=== PATIENT | male | born 1940 | race Caucasian/White ===

== ENCOUNTER 2016-10-13 09:53 | Outpatient (CLI) | payer MEDICARE, BC ==
[2016-10-13 10:21] LABS: BASOPHILS # (AUTO) 0.1 10^3/uL (0.0-0.1); BASOPHILS % (AUTO) 1.1 %; EOSINOPHILS # (AUTO) 0.3 10^3/uL (0.0-0.7); EOSINOPHILS % (AUTO) 6.2 %; HGB - HEMOGLOBIN 13.9 g/dL (14.0-18.0); LYMPHOCYTES # (AUTO) 1.8 10^3/uL (1.5-3.5); LYMPHOCYTES % (AUTO) 37.8 %; MEAN CORPUSCULAR HEMOGLOBIN 29.6 pg (27.0-31.0); MEAN CORPUSCULAR HGB CONC 34.6 g/dL (32.0-36.0); MEAN CORPUSCULAR VOLUME 85.3 fL (80.0-94.0); MONOCYTES # (AUTO) 0.5 10^3/uL (0.0-1.0); MONOCYTES % (AUTO) 10.8 %; NEUTROPHILS # (AUTO) 2.1 10^3/uL (1.5-6.6); NEUTROPHILS % (AUTO) 44.1 %; NUCLEATED RED BLOOD CELLS AUTO 0.1 /100WBC; RED BLOOD COUNT 4.69 10^6/uL (4.70-6.10); UNCORRECTED WHITE BLOOD COUNT 4.7 x10^3/uL; WHITE BLOOD COUNT 4.7 x10^3/uL (4.8-10.8)
[2016-10-13 10:33] LABS: ALBUMIN/GLOBULIN RATIO 1.4 (1.0-2.2); BILIRUBIN,TOTAL 0.7 mg/dL (0.2-1.0); CREATININE 0.8 mg/dL (0.6-1.2); POTASSIUM 3.5 mmol/L (3.5-5.0); TOTAL PROTEIN 6.8 g/dL (6.7-8.2)
== END 2016-10-13 09:54 | disposition home or self-care (01) ==
LOC: LAB 09:53
PROVIDERS: ATTEND Family Medicine
DX: E11.9 Type 2 diabetes mellitus without complications (principal)
CPT/HCPCS: 36415; 80053; 85025

== ENCOUNTER 2017-03-16 10:38 | Outpatient (CLI) | payer MEDICARE, BC ==
--- NOTE | 2017-03-16 17:39 | XRAY Report ---
THREE VIEW LEFT HAND: 03/16/2017 CLINICAL INDICATION: Osteoarthritis. AP, lateral, oblique views of the left hand demonstrate osteoarthritis of the interphalangeal joints. A prosthesis is noted in the first carpometacarpal joint, and osteoarthritic changes are seen in th e mid carpal row. There is no evidence of acute fracture or dislocation. IMPRESSION: OSTEOARTHRITIS. PREVIOUS SURGERY AT THE FIRST CARPOMETACARPAL JOINT. JOB #: [id number] EXT JOB #:[id number]
== END 2017-03-16 10:39 | disposition home or self-care (01) ==
LOC: DI 10:38
PROVIDERS: ATTEND Internal Medicine
DX: M19.042 Primary osteoarthritis, left hand (principal)

== ENCOUNTER 2017-04-21 10:31 | Outpatient (CLI) | payer MEDICARE, BC ==
[2017-04-21 11:32] LABS: HB2 TOTAL 17.5 g/dL; HEMOGLOBIN A1C 0.68 g/dL; HEMOGLOBIN A1C % 5.7 % (4.6-6.2)
[2017-04-21 11:33] LABS: BUN - BLOOD UREA NITROGEN 16 mg/dL (6-20); CALCIUM 9.6 mg/dL (8.5-10.3); CARBON DIOXIDE - CO2 27 mmol/L (21-32); CHLORIDE 99 mmol/L (101-111); CREATININE 0.8 mg/dL (0.6-1.2); CRP - C-REACTIVE PROTEIN < 1.0 mg/dL (0-1.0); GFR - MDRD 94 (>89); GLUCOSE 106 mg/dL (70-100); SODIUM 138 mmol/L (135-145)
[2017-04-21 11:45] LABS: RHEUMATOID FACTOR NEGATIVE (Negative)
== END 2017-04-21 10:32 | disposition home or self-care (01) ==
LOC: LAB 10:31
PROVIDERS: ATTEND Internal Medicine
DX: M25.50 Pain in unspecified joint (principal); E11.9 Type 2 diabetes mellitus without complications; Z79.899 Other long term (current) drug therapy
CPT/HCPCS: 36415; 80048; 82607; 83036; 85651; 86140; 86200; 86430

== ENCOUNTER 2017-06-18 10:09 | Emergency (ER) | payer MEDICARE, BC ==
[2017-06-18 10:27] VITALS: BP 119/76
--- NOTE | 2017-06-18 11:15 | ED Physician Documentation ---
PD HPI UPPER EXT INJURY - Stated complaint Stated Complaint: L RING FINGER INJ - Chief complaint Chief Complaint: Ext Problem - History obtained from History obtained from: Patient, Family - History of Present Illness Location: Left, Finger (ring) Type of injury: Blunt / blow Where injury occurred: Home Timing - onset: Last night Timing - duration: Hours Timing - details: Abrupt onset, Still present Improved by: Rest, Immobilization Worsened by: Moving, Palpating Associated symptoms: Swelling. No: Weakness, Numbness Contributing factors: No: Anticoagulated Similar symptoms before: Has not had sx before Recently seen: Not recently seen - Additonal information Additional information: 76-year-old male was going up the steps last night slipped and fell forward and jammed his left ring finger turning off a portion of his nail and injuring his finger. Overnight he has had a lot of swelling in the finger and has pain especially over the distal interphalangeal joint. He does not have a mallet finger now. Review of Systems Constitutional: denies: Fever Nose: denies: Congestion Respiratory: denies: Cough GI: denies: Vomiting Skin: denies: Rash Musculoskeletal: reports: Extremity pain, Joint pain, Extremity swelling, Joint swelling. denies: Neck pain, Back pain Neurologic: denies: Generalized weakness, Focal weakness, Numbness PD PAST MEDICAL HISTORY - Past Medical History Past Medical History: Yes Cardiovascular: Hypertension, High cholesterol Respiratory: Asthma Endocrine/Autoimmune: Type 2 diabetes - Past Surgical History Past Surgical History: Yes Ortho: Spine surgery - Present Medications Home Medications: Ambulatory Orders Medication Instructions Recorded Confirmed Albuterol Sulf [Ventolin Hfa 06/18/17 Inhaler] Aspirin 06/18/17 Budesonide 06/18/17 Formoterol Fumarate [Perforomist] 06/18/17 Gabapentin 06/18/17 Metformin HCl 06/18/17 Montelukast Sodium 06/18/17 Potassium Chloride [Micro-K] 06/18/17 Pravastatin Sodium 06/18/17 Tiotropium [place] [Spiriva 06/18/17 Respimat] Triamterene/Hydrochlorothiazid 06/18/17 [Triamterene-Hctz 75-50 mg Tab] - Allergies Allergies/Adverse Reactions: Allergies Allergy/AdvReac Type Severity Reaction Status Date / Time No Known Drug Allergies Allergy Verified 06/18/17 10:26 - Social History Does the pt smoke?: No Smoking Status: Never smoker PD ED PE NORMAL - Vitals Vital signs reviewed: Yes (normal ) - General General: Alert and oriented X 3, No acute distress, Well developed/nourished - HEENT HEENT: Atraumatic - Respiratory Respiratory: No respiratory distress - Derm Derm: Normal color, Warm and dry, No rash - Extremities Extremities: No deformity, Other - Neuro Neuro: No motor deficit, No sensory deficit Eye Opening: Spontaneous Motor: Obeys Commands Verbal: Oriented GCS Score: 15 - Psych Psych: Normal mood, Normal affect Results - Vitals Vitals: Vital Signs - 24 hr 06/18/17 10:24 Temperature 36.6 C Heart Rate 76 Respiratory 16 Rate Blood Pressure 119/76 O2 Saturation 98 Oxygen O2 Source Room air - Rads (name of study) finger Radiology: Prelim report reviewed (Impression: 1. No definite acute abnormality of the left fourth finger. Degenerative, chronic and postopertive findings, as above), EMP read indepedently, See rad report PD MEDICAL DECISION MAKING - ED course Complexity details: reviewed results, re-evaluated patient, considered differential, d/w patient, d/w family ED course: 76-year-old male with a contusion of the left ring finger has some swelling and dorsal pain and he is placed into a splint. There is no evidence of foreign body. Departure - Departure Disposition: 01 Home, Self Care Clinical Impression: Sprain of finger of left hand Qualifiers: Encounter type: initial encounter Finger: ring finger Sprain of finger site: interphalangeal joint Qualified Code(s): S63.635A - Sprain of interphalangeal joint of left ring finger, initial encounter Condition: Stable Instructions: ED Sprain Finger Follow-Up: Smiley Parrish MD [Primary Care Provider] -
--- NOTE | 2017-06-18 11:24 | XRAY Report ---
EXAM: LEFT 4 DIGIT RADIOGRAPHY EXAM DATE: 06/18/2017 10:39 AM. CLINICAL HISTORY: Injury. Pain in distal tuft COMPARISON: None. TECHNIQUE: 3 views. FINDINGS: Bones/joints: No definite fractures or acute bone lesions. Limited demonstration of a rounded presume d prosthetic/surgical structure at the first carpometacarpal joint with associated presumed postopera tive and chronic changes. Degenerative joint disease of varying degrees involving all of the visualized IP joints. Sclerotic no dule within the base of the fifth proximal phalanx presumably represents a benign bone island. Soft Tissues: Normal. No soft tissue swelling. IMPRESSION: 1. No definite acute abnormality of the left fourth finger. 2. Degenerative, chronic and postoperative findings, as above. [facility] Referring Provider Line: [phone] SITE ID: [id number]
--- NOTE | 2017-06-18 11:24 | XRAY Preliminary Report ---
Exam: XR FINGER(S) LT IMPRESSION: 1. No definite acute abnormality of the left fourth finger. 2. Degenerative, chronic and postoperative findings, as above. [facility] SITE ID: [id number]
== END 2017-06-18 11:51 | disposition home or self-care (01) ==
LOC: ED 10:09
DX: S63.635A Sprain of interphalangeal joint of left ring finger, initial encounter (principal); W01.0XXA Fall on same level from slipping, tripping and stumbling without subsequent striking against object, initial encounter; W23.1XXA Caught, crushed, jammed, or pinched between stationary objects, initial encounter; Y92.009 Unspecified place in unspecified non-institutional (private) residence as the place of occurrence of the external cause; I10 Essential (primary) hypertension; E78.00 Pure hypercholesterolemia, unspecified; E11.9 Type 2 diabetes mellitus without complications; Z79.84 Long term (current) use of oral hypoglycemic drugs; Z79.82 Long term (current) use of aspirin
CPT/HCPCS: 73140; 99282

== ENCOUNTER 2017-08-18 08:44 | Outpatient (CLI) | payer MEDICARE, BC ==
[2017-08-18 09:15] LABS: BASOPHILS # (AUTO) 0.1 10^3/uL (0.0-0.1); BASOPHILS % (AUTO) 1.2 %; EOSINOPHILS # (AUTO) 0.2 10^3/uL (0.0-0.7); EOSINOPHILS % (AUTO) 4.2 %; HGB - HEMOGLOBIN 14.1 g/dL (14.0-18.0); LYMPHOCYTES % (AUTO) 37.5 %; MEAN CORPUSCULAR HEMOGLOBIN 30.8 pg (27.0-31.0); MEAN CORPUSCULAR HGB CONC 34.2 g/dL (32.0-36.0); MEAN CORPUSCULAR VOLUME 89.9 fL (80.0-94.0); MONOCYTES # (AUTO) 0.6 10^3/uL (0.0-1.0); MONOCYTES % (AUTO) 11.9 %; NEUTROPHILS # (AUTO) 2.4 10^3/uL (1.5-6.6); NEUTROPHILS % (AUTO) 45.2 %; PLT - PLATELET COUNT 231 10^3/uL (130-450); RED BLOOD COUNT 4.58 10^6/uL (4.70-6.10); RED CELL DISTRIBUTION WIDTH 13.7 % (12.0-15.0); WHITE BLOOD COUNT 5.4 x10^3/uL (4.8-10.8)
[2017-08-18 09:28] LABS: CREATININE 0.8 mg/dL (0.6-1.2)
--- NOTE | 2017-08-18 14:34 | Nuclear Medicine Report ---
EXAM: TRIPLE-PHASE BONE SCAN WITH WHOLE BODY BONE SCAN EXAM DATE: 08/18/2017 01:59 PM. CLINICAL HISTORY: SPINAL LESION. COMPARISON: Lumbar spine MRI dated 08/09/2017. Left shoulder radiographs dated 08/09/2017 (report not available) TECHNIQUE: Patient was injected with 31.7 mCi of technetium 99m MDP intravenously with flow phase jakob ma camera imaging anteriorly over the lumbar spine, 5 seconds per frame for 1 minute. Subsequently, b lood pool images of the lumbar spine were obtained. The patient returned 3 hours later for multiple s pot images of the lumbar spine. Additional whole-body anterior and posterior images are obtained. FINDINGS: Flow Phase: No abnormal increased vascular flow. Blood Pool Phase: Images show no focal increased or decreased uptake. Delayed Phase: There is mild to moderate linear increased uptake at approximately T12-L1, L1-L2, and L2-L3. There is bilateral facet region uptake at approximately L3-L4 and L5-S1. Whole-body images show intensely increased uptake in the region of the left sternoclavicular joint. T here are additional focal areas of increased uptake scattered in the thoracic spine. There is a focus of increased uptake on the left side cervical spine. There is a left knee prosthesis. IMPRESSION: 1. There are several areas of increased uptake in the spine. In the absence of malignancy history, th goyo are most likely degenerative. 2. There is intensely increased uptake in the region of the left sternoclavicular joint. In the absen ce of malignancy history, this is most likely degenerative. [facility] Referring Provider Line: [phone] SITE ID: [id number]
== END 2017-08-18 08:45 | disposition home or self-care (01) ==
LOC: DI 08:44
PROVIDERS: ATTEND Internal Medicine
DX: M54.5 Low back pain (principal); M51.36 Other intervertebral disc degeneration, lumbar region; M54.2 Cervicalgia; M54.12 Radiculopathy, cervical region; M54.16 Radiculopathy, lumbar region; G95.20 Unspecified cord compression
CPT/HCPCS: 36415; 78306; 80048; 84075; 85025; A9503

== ENCOUNTER 2017-12-06 15:22 | Emergency (ER) | payer MEDICARE, BC ==
[2017-12-06 15:55] LABS: BASOPHILS % (AUTO) 0.3 %; EOSINOPHILS # (AUTO) 0.1 10^3/uL (0.0-0.7); HGB - HEMOGLOBIN 14.9 g/dL (14.0-18.0); LYMPHOCYTES # (AUTO) 0.4 10^3/uL (1.5-3.5); LYMPHOCYTES % (AUTO) 6.3 %; MEAN CORPUSCULAR HEMOGLOBIN 31.4 pg (27.0-31.0); MEAN CORPUSCULAR VOLUME 89.7 fL (80.0-94.0); MEAN PLATELET VOLUME 6.8 fL (7.4-11.4); MONOCYTES # (AUTO) 0.5 10^3/uL (0.0-1.0); MONOCYTES % (AUTO) 9.1 %; NEUTROPHILS # (AUTO) 4.9 10^3/uL (1.5-6.6); NEUTROPHILS % (AUTO) 83.3 %; PLT - PLATELET COUNT 220 10^3/uL (130-450); RED BLOOD COUNT 4.76 10^6/uL (4.70-6.10); WHITE BLOOD COUNT 5.9 x10^3/uL (4.8-10.8)
[2017-12-06 16:05] LABS: ALBUMIN 4.1 g/dL (3.2-5.5); ALBUMIN/GLOBULIN RATIO 1.3 (1.0-2.2); CREATININE 0.9 mg/dL (0.6-1.2); TOTAL PROTEIN 7.3 g/dL (6.7-8.2)
--- NOTE | 2017-12-06 16:46 | ED Physician Documentation ---
PD HPI FOCAL NEURO - Stated complaint Stated Complaint: TREMBLE/DIABETIC - Chief complaint Chief Complaint: General - History obtained from History obtained from: Patient - History of Present Illness Timing - onset: Today Timing - duration: Minutes Timing - details: Abrupt onset (he had onset of malaise, some nausea and then had rigorous shaking/ feeling of chills.) Weakness: Other (generalized) Contributing factors: negative: Anticoagulated, Vascular dz Baseline status: positive: A&OX3, ambulatory, indep Similar symptoms before: Diagnosis (sepsis from surgical wound (knee replacement ) infection couple years ago.) Recently seen: Surgery (cervical fusion 8 weeks ago and has been healing okay.) Review of Systems Constitutional: reports: Chills. denies: Fever Ears: denies: Drainage/discharge Nose: denies: Rhinorrhea / runny nose, Congestion Throat: denies: Sore throat, Swollen tonsils Cardiac: denies: Chest pain / pressure, Palpitations Respiratory: denies: Dyspnea, Cough GI: reports: Nausea. denies: Abdominal Pain, Vomiting : denies: Dysuria, Frequency PD PAST MEDICAL HISTORY - Past Medical History Cardiovascular: Hypertension, High cholesterol Respiratory: Asthma Endocrine/Autoimmune: Type 2 diabetes Musculoskeletal: None Derm: None - Past Surgical History Past Surgical History: Yes Ortho: Spine surgery - Present Medications Home Medications: Ambulatory Orders Medication Instructions Recorded Confirmed Albuterol Sulf [Ventolin Hfa 06/18/17 Inhaler] Aspirin 06/18/17 Budesonide 06/18/17 Formoterol Fumarate [Perforomist] 06/18/17 Gabapentin 06/18/17 Metformin HCl 06/18/17 Montelukast Sodium 06/18/17 Potassium Chloride [Micro-K] 06/18/17 Pravastatin Sodium 06/18/17 Tiotropium [place] [Spiriva 06/18/17 Respimat] Triamterene/Hydrochlorothiazid 06/18/17 [Triamterene-Hctz 75-50 mg Tab] - Allergies Allergies/Adverse Reactions: Allergies Allergy/AdvReac Type Severity Reaction Status Date / Time No Known Drug Allergies Allergy Verified 12/06/17 15:32 - Social History Does the pt smoke?: No Smoking Status: Never smoker PD ED PE NORMAL - Vitals Vital signs reviewed: Yes - General General: Alert and oriented X 3, No acute distress, Well developed/nourished, Other (no shaking nor tremors now. Hint of tempt elevation here (37.9).) - HEENT HEENT: Ears normal, Moist mucous membranes, Pharynx benign - Neck Neck: Supple, no meningeal sign, No adenopathy, Thyroid normal - Cardiac Cardiac: RRR, No gallop - Respiratory Respiratory: No respiratory distress, Clear bilaterally - Abdomen Abdomen: Soft, Non tender - Male Male : Deferred - Rectal Rectal: Deferred - Back Back: No CVA TTP - Derm Derm: Normal color, Warm and dry, No rash Results - Vitals Vitals: Vital Signs - 24 hr 12/06/17 12/06/17 15:29 18:40 Temperature 37.9 C H Heart Rate 80 93 Respiratory 20 14 Rate Blood Pressure 132/91 H 122/70 O2 Saturation 99 96 Oxygen O2 Source Room air - Labs Labs: Laboratory Tests 12/06/17 12/06/17 12/06/17 15:45 15:45 15:45 WBC 5.9 RBC 4.76 Hgb 14.9 Hct 42.7 MCV 89.7 MCH 31.4 H MCHC 35.0 RDW 14.0 Plt Count 220 MPV 6.8 L Neut # (Auto) 4.9 Lymph # (Auto) 0.4 L [place] # (Auto) 0.5 Eos # (Auto) 0.1 Baso # (Auto) 0.0 Absolute Nucleated RBC 0.00 Nucleated RBC % 0.0 Sodium 134 L Potassium 3.2 L Chloride 93 L Carbon Dioxide 30 Anion Gap 11.0 BUN 13 Creatinine 0.9 Estimated GFR (MDRD) 82 L Glucose 133 H Lactic Acid Calcium 9.0 Total Bilirubin 1.0 AST 35 ALT 26 Alkaline Phosphatase 72 Troponin I < 0.04 C-Reactive Protein Total Protein 7.3 Albumin 4.1 Globulin 3.2 Albumin/Globulin Ratio 1.3 Lipase 78 H Urine Color Urine Clarity Urine pH Ur Specific [place] Urine Protein Urine Glucose (UA) Urine Ketones Urine Occult Blood Urine Nitrite Urine Bilirubin Urine Urobilinogen Ur Leukocyte Esterase Ur Microscopic Review Urine Culture Comments Group A Strep Rapid 12/06/17 12/06/17 12/06/17 17:27 17:27 17:27 WBC RBC Hgb Hct MCV MCH MCHC RDW Plt Count MPV Neut # (Auto) Lymph # (Auto) [place] # (Auto) Eos # (Auto) Baso # (Auto) Absolute Nucleated RBC Nucleated RBC % Sodium Potassium Chloride Carbon Dioxide Anion Gap BUN Creatinine Estimated GFR (MDRD) Glucose Lactic Acid 1.6 Calcium Total Bilirubin AST ALT Alkaline Phosphatase Troponin I < 0.04 C-Reactive Protein 4.6 H Total Protein Albumin Globulin Albumin/Globulin Ratio Lipase Urine Color Urine Clarity Urine pH Ur Specific [place] Urine Protein Urine Glucose (UA) Urine Ketones Urine Occult Blood Urine Nitrite Urine Bilirubin Urine Urobilinogen Ur Leukocyte Esterase Ur Microscopic Review Urine Culture Comments Group A Strep Rapid 12/06/17 12/06/17 18:12 18:28 WBC RBC Hgb Hct MCV MCH MCHC RDW Plt Count MPV Neut # (Auto) Lymph # (Auto) [place] # (Auto) Eos # (Auto) Baso # (Auto) Absolute Nucleated RBC Nucleated RBC % Sodium Potassium Chloride Carbon Dioxide Anion Gap BUN Creatinine Estimated GFR (MDRD) Glucose Lactic Acid Calcium Total Bilirubin AST ALT Alkaline Phosphatase Troponin I C-Reactive Protein Total Protein Albumin Globulin Albumin/Globulin Ratio Lipase Urine Color YELLOW Urine Clarity CLEAR Urine pH 7.5 Ur Specific [place] 1.015 Urine Protein NEGATIVE Urine Glucose (UA) NEGATIVE Urine Ketones NEGATIVE Urine Occult Blood NEGATIVE Urine Nitrite NEGATIVE Urine Bilirubin NEGATIVE Urine Urobilinogen 0.2 (NORMAL) Ur Leukocyte Esterase NEGATIVE Ur Microscopic Review NOT INDICATED Urine Culture Comments NOT INDICATED Group A Strep Rapid Negative PD MEDICAL DECISION MAKING - ED course Complexity details: reviewed results (no clear source for infection and his blood tests markers do not suggest impending sepsis. ), considered differential (he had similar symptoms when septic in the past. ), d/w patient - Sepsis Event Vital Signs: Vital Signs - 24 hr 12/06/17 12/06/17 15:29 18:40 Temperature 37.9 C H Heart Rate 80 93 Respiratory 20 14 Rate Blood Pressure 132/91 H 122/70 O2 Saturation 99 96 Oxygen O2 Source Room air Departure - Departure Disposition: 01 Home, Self Care Clinical Impression: Shaking chills Condition: Stable Record reviewed to determine appropriate education?: Yes Instructions: ED Viral Syndrome Follow-Up: Smiley Parrish MD [Primary Care Provider] - Comments: For now I can presume a possible viral syndrome such as a coming cold or flu. However we do worry about worse infections brewing. Drink lots of fluids and use Tylenol or ibuprofen if needed for fevers. Recheck with your primary care in 2 days, call for tomorrow for an appointment. We will see if the cultures obtained today show any signs of infection. The basic blood test did not show any specific infection nor signs of sepsis at this time. Discharge Date/Time: 12/06/17 19:26
--- NOTE | 2017-12-06 18:15 | XRAY Report ---
Procedure Date: 12/06/2017 Accession Number: [id number] / [id number] Procedure: XR - Chest 2 View X-Ray CPT Code: 12614 FULL RESULT: EXAM: CHEST RADIOGRAPHY EXAM DATE: 12/06/2017 05:47 PM. CLINICAL HISTORY: Shaky and weak. Decreased level of consciousness. Hypoxia. COMPARISON: XR CHEST PORTABLE 08/09/2016. TECHNIQUE: 2 views. FINDINGS: Lungs/Pleura: No focal opacities evident. No pleural effusion. No pneumothorax. Normal volumes. Mediastinum: Heart and mediastinal contours are unremarkable. Other: No compression fractures. IMPRESSION: Normal 2-view chest radiography. [facility]
[2017-12-06 18:40] LABS: BILIRUBIN,URINE NEGATIVE (NEGATIVE); GLUCOSE, URINE (UA) NEGATIVE (NEGATIVE); KETONES,URINE (UA) NEGATIVE (NEGATIVE); LEUKOCYTE ESTERASE, URINE NEGATIVE (NEGATIVE); NITRITE,URINE NEGATIVE (NEGATIVE); OCCULT BLOOD,URINE NEGATIVE (NEGATIVE); PH,URINE 7.5 PH (5.0-7.5); PROTEIN,URINE NEGATIVE (NEGATIVE); UROBILINOGEN,URINE 0.2 (NORMAL) E.U./dL (NORMAL)
[2017-12-06 18:41] VITALS: BP 122/70
[2017-12-06 18:43] LABS: CLARITY,URINE CLEAR (CLEAR)
== END 2017-12-06 19:26 | disposition home or self-care (01) ==
LOC: ED 15:22
DX: R68.83 Chills (without fever) (principal); R25.1 Tremor, unspecified; I10 Essential (primary) hypertension; E11.9 Type 2 diabetes mellitus without complications; J45.909 Unspecified asthma, uncomplicated; Z79.84 Long term (current) use of oral hypoglycemic drugs; Z79.51 Long term (current) use of inhaled steroids
CPT/HCPCS: 36415; 71046; 80053; 81001; 81003; 83605; 83690; 84484; 85025; 86140; 87040; 87070; 87077; 87086; 87430; 93005; 99283; 99284

== ENCOUNTER 2018-08-01 05:29 | Emergency (ER) | payer MEDICARE, BC ==
--- NOTE | 2018-08-01 05:50 | ED Physician Documentation ---
PD HPI MALE - Stated complaint Stated Complaint: MALE - Chief complaint Chief Complaint: General - History obtained from History obtained from: Patient - History of Present Illness Timing - onset: Today Timing - details: Abrupt onset Pain level now: 3 Associated symptoms: Dysuria, Urinary frequency, Hematuria Recently seen: Admitted (discharged from [facility] [address] after inpatient stay for sepsis ( says e. coli, unclear source but suspected UTI)) - Additional information Additional information: hematuria, dysuria, urinary frequency since earlier this morning Review of Systems Constitutional: reports: Reviewed and negative GI: reports: Reviewed and negative : reports: Dysuria, Frequency, Hematuria Musculoskeletal: denies: Back pain PD PAST MEDICAL HISTORY - Past Medical History Past Medical History: Yes Cardiovascular: Hypertension, High cholesterol Respiratory: Asthma Neuro: None Endocrine/Autoimmune: Type 2 diabetes GI: None : Benign prostate hypertrophy HEENT: None Psych: None Musculoskeletal: None Derm: None - Past Surgical History Past Surgical History: Yes Ortho: Spine surgery - Present Medications Home Medications: Ambulatory Orders Medication Instructions Recorded Confirmed Albuterol Sulf [Ventolin Hfa 06/18/17 Inhaler] Aspirin 06/18/17 Budesonide 06/18/17 Formoterol Fumarate [Perforomist] 06/18/17 Gabapentin 06/18/17 Metformin HCl 06/18/17 Montelukast Sodium 06/18/17 Potassium Chloride [Micro-K] 06/18/17 Pravastatin Sodium 06/18/17 Tiotropium [place] [Spiriva 06/18/17 Respimat] Triamterene/Hydrochlorothiazid 06/18/17 [Triamterene-Hctz 75-50 mg Tab] Cefpodoxime Proxetil [Vantin] 200 mg PO Q12H #28 tablet 08/01/18 - Allergies Allergies/Adverse Reactions: Allergies Allergy/AdvReac Type Severity Reaction Status Date / Time No Known Drug Allergies Allergy Verified 08/01/18 05:41 - Social History Does the pt smoke?: No Smoking Status: Never smoker Does the pt drink ETOH?: No Does the pt have substance abuse?: No - Immunizations Immunizations are current?: Yes - POLST Patient has POLST: No PD ED PE NORMAL - Vitals Vital signs reviewed: Yes - General General: Alert and oriented X 3, No acute distress, Well developed/nourished - Cardiac Cardiac: RRR, No murmur - Respiratory Respiratory: No respiratory distress, Clear bilaterally - Abdomen Abdomen: Soft, Non tender - Back Back: No CVA TTP, No spinal TTP Results - Vitals Vitals: Vital Signs - 24 hr 08/01/18 08/01/18 08/01/18 05:40 05:53 07:56 Temperature 36.7 C Heart Rate 84 78 Respiratory 17 16 18 Rate Blood Pressure 115/70 119/74 O2 Saturation 99 100 Oxygen O2 Source Room air - Labs Labs: Laboratory Tests 08/01/18 05:45 Urine Color RED/BLOODY Urine Clarity BLOODY Urine pH TNP Ur Specific [place] TNP Urine Protein TNP Urine Glucose (UA) NEGATIVE Urine Ketones TNP Urine Occult Blood TNP Urine Nitrite TNP Urine Bilirubin TNP Urine Urobilinogen TNP Ur Leukocyte Esterase TNP Urine RBC TNTC H Urine WBC >25 H Ur Squamous Epith Cells FEW Squamous Urine Bacteria Rare Ur Microscopic Review INDICATED Urine Culture Comments INDICATED PD MEDICAL DECISION MAKING - ED course Complexity details: reviewed old records, reviewed results, re-evaluated patient, considered differential, d/w patient, d/w family ED course: records from [place] faxed and reviewed (discharge summary and labs including urine culture, which grew guzmán-sensitive e.coli) Departure - Departure Disposition: 01 Home, Self Care Clinical Impression: Hemorrhagic cystitis Condition: Good Instructions: ED UTI Cystitis Male Follow-Up: Smiley Parrish MD [Primary Care Provider] - Prescriptions: Cefpodoxime Proxetil [Vantin] 200 mg PO Q12H #28 tablet Discharge Date/Time: 08/01/18 07:56
[2018-08-01 06:48] LABS: CLARITY,URINE BLOODY (CLEAR)
[2018-08-01 06:49] LABS: ICTOTEST,URINE NEGATIVE
[2018-08-01 06:50] LABS: GLUCOSE, URINE (UA) NEGATIVE (NEGATIVE)
[2018-08-01 06:51] LABS: BACTERIA,URINE Rare /HPF (None Seen); RBC,URINE TNTC /HPF (0-5); SQUAMOUS EPITHELIAL CELL,UR FEW Squamous (<= Few)
[2018-08-01] MEDS ORDERED: CEFPODOXIME PROXETIL 100 MG TABLET PO STA (07:28)
[2018-08-01 07:56] VITALS: BP 119/74
== END 2018-08-01 07:56 | disposition home or self-care (01) ==
LOC: ED 05:29
DX: N30.91 Cystitis, unspecified with hematuria (principal); I10 Essential (primary) hypertension; E11.9 Type 2 diabetes mellitus without complications; Z79.84 Long term (current) use of oral hypoglycemic drugs
CPT/HCPCS: 81001; 87086; 99283; A9270; 81003

== ENCOUNTER 2018-08-24 07:43 | Outpatient (CLI) | payer MEDICARE, BC ==
[2018-08-24 08:03] LABS: BASOPHILS # (AUTO) 0.1 10^3/uL (0.0-0.1); EOSINOPHILS # (AUTO) 0.1 10^3/uL (0.0-0.7); EOSINOPHILS % (AUTO) 2.2 %; HGB - HEMOGLOBIN 14.1 g/dL (14.0-18.0); LYMPHOCYTES # (AUTO) 2.2 10^3/uL (1.5-3.5); LYMPHOCYTES % (AUTO) 40.8 %; MEAN CORPUSCULAR HEMOGLOBIN 30.4 pg (27.0-31.0); MEAN CORPUSCULAR HGB CONC 33.6 g/dL (32.0-36.0); MEAN CORPUSCULAR VOLUME 90.6 fL (80.0-94.0); MEAN PLATELET VOLUME 6.7 fL (7.4-11.4); MONOCYTES # (AUTO) 0.5 10^3/uL (0.0-1.0); NEUTROPHILS # (AUTO) 2.5 10^3/uL (1.5-6.6); PLT - PLATELET COUNT 264 10^3/uL (130-450); RED BLOOD COUNT 4.63 10^6/uL (4.70-6.10); RED CELL DISTRIBUTION WIDTH 14.3 % (12.0-15.0); WHITE BLOOD COUNT 5.5 x10^3/uL (4.8-10.8)
[2018-08-24 08:16] LABS: ALBUMIN 3.9 g/dL (3.2-5.5); ALBUMIN/GLOBULIN RATIO 1.3 (1.0-2.2); ALKALINE PHOSPHATASE 65 IU/L (42-121); ALT ALANINE AMINOTRANSFERASE 21 IU/L (10-60); AST ASPARTATE AMINOTRANSFERASE 25 IU/L (10-42); BILIRUBIN,TOTAL 0.7 mg/dL (0.2-1.0); BUN - BLOOD UREA NITROGEN 15 mg/dL (6-20); CALCIUM 9.1 mg/dL (8.5-10.3); CARBON DIOXIDE - CO2 32 mmol/L (21-32); CHLORIDE 101 mmol/L (101-111); CHOL/HDL RATIO 3.3 (<5.0); CHOLESTEROL 205 mg/dL; CREATININE 0.7 mg/dL (0.6-1.2); GFR - MDRD 110 (>89); GLUCOSE 109 mg/dL (70-100); HDL CHOLESTEROL 62 mg/dL; LDL CHOLESTEROL,CALCULATED 130 mg/dL; LDL/HDL RATIO 2.1 (<3.6); SODIUM 139 mmol/L (135-145); VLDL CHOLESTEROL 13 mg/dL
[2018-08-24 08:17] LABS: HB2 TOTAL 14.7 g/dL; HEMOGLOBIN A1C 0.5 g/dL; HEMOGLOBIN A1C % 5.3 % (4.6-6.2)
[2018-08-24 08:18] LABS: CRP - C-REACTIVE PROTEIN < 1.0 mg/dL (0-1.0)
[2018-08-28 23:07] LABS: ALBUMIN 4.1 g/dL (3.8-4.8); ALPHA 1 GLOBULIN 0.3 g/dL (0.2-0.3); ALPHA 2 GLOBULIN 0.7 g/dL (0.5-0.9); BETA 1 GLOBULIN 0.5 g/dL (0.4-0.6); BETA 2 GLOBULIN 0.4 g/dL (0.2-0.5)
== END 2018-08-24 07:44 | disposition home or self-care (01) ==
LOC: LAB 07:43
PROVIDERS: ATTEND Internal Medicine
DX: I25.119 Atherosclerotic heart disease of native coronary artery with unspecified angina pectoris (principal); E11.9 Type 2 diabetes mellitus without complications; E78.5 Hyperlipidemia, unspecified; G61.9 Inflammatory polyneuropathy, unspecified; N41.0 Acute prostatitis
CPT/HCPCS: 36415; 80053; 80061; 81599; 82043; 82607; 83036; 83721; 84155; 84165; 85025; 85651; 86140; 86592

== ENCOUNTER 2018-09-07 10:41 | Outpatient (CLI) | payer MEDICARE, BC | END 2018-09-07 10:42 | disposition home or self-care (01) | LOC: LAB 10:41 | PROVIDERS: ATTEND Urology | DX: R97.20 Elevated prostate specific antigen [PSA] (principal) | CPT/HCPCS: 36415; 84153 ==

== ENCOUNTER 2018-09-18 09:32 | Outpatient (CLI) | payer MEDICARE, BC ==
[2018-09-18 09:57] LABS: CALCIUM 9.8 mg/dL (8.5-10.3); CREATININE 0.7 mg/dL (0.6-1.2)
== END 2018-09-18 09:33 | disposition home or self-care (01) ==
LOC: LAB 09:32
PROVIDERS: ATTEND Urology
DX: N40.1 Benign prostatic hyperplasia with lower urinary tract symptoms (principal); R35.0 Frequency of micturition; R97.20 Elevated prostate specific antigen [PSA]; I25.119 Atherosclerotic heart disease of native coronary artery with unspecified angina pectoris; R06.01 Orthopnea
CPT/HCPCS: 36415; 80048; 83880; 84153

== ENCOUNTER 2019-05-02 16:52 | Outpatient (CLI) | payer MEDICARE, BC ==
[2019-05-02 17:14] LABS: BASOPHILS % (AUTO) 0.6 %; EOSINOPHILS # (AUTO) 0.1 10^3/uL (0.0-0.7); EOSINOPHILS % (AUTO) 2.1 %; HGB - HEMOGLOBIN 14.1 g/dL (14.0-18.0); LYMPHOCYTES # (AUTO) 2.3 10^3/uL (1.5-3.5); LYMPHOCYTES % (AUTO) 36.3 %; MEAN CORPUSCULAR HEMOGLOBIN 30.5 pg (27.0-31.0); MEAN CORPUSCULAR HGB CONC 34.1 g/dL (32.0-36.0); MEAN CORPUSCULAR VOLUME 89.6 fL (80.0-94.0); MEAN PLATELET VOLUME 8.3 fL (7.4-11.4); MONOCYTES # (AUTO) 0.8 10^3/uL (0.0-1.0); NEUTROPHILS % (AUTO) 47.7 %; PLT - PLATELET COUNT 258 10^3/uL (130-450); RED BLOOD COUNT 4.62 10^6/uL (4.70-6.10); RED CELL DISTRIBUTION WIDTH 12.4 % (12.0-15.0); WHITE BLOOD COUNT 6.3 x10^3/uL (4.8-10.8)
[2019-05-02 17:29] LABS: HB2 TOTAL 14.3 g/dL; HEMOGLOBIN A1C 0.51 g/dL; HEMOGLOBIN A1C % 5.4 % (4.6-6.2)
[2019-05-02 17:42] LABS: ALBUMIN 4.3 g/dL (3.2-5.5); ALBUMIN/GLOBULIN RATIO 1.2 (1.0-2.2); ALKALINE PHOSPHATASE 71 IU/L (42-121); ALT ALANINE AMINOTRANSFERASE 23 IU/L (10-60); AST ASPARTATE AMINOTRANSFERASE 28 IU/L (10-42); BILIRUBIN,TOTAL 0.7 mg/dL (0.2-1.0); BUN - BLOOD UREA NITROGEN 18 mg/dL (6-20); CALCIUM 9.3 mg/dL (8.5-10.3); CARBON DIOXIDE - CO2 28 mmol/L (21-32); CHLORIDE 94 mmol/L (101-111); CHOL/HDL RATIO 2.8 (<5.0); CHOLESTEROL 194 mg/dL; CREATININE 0.7 mg/dL (0.6-1.2); GFR - MDRD 109 (>89); GLUCOSE 118 mg/dL (70-100); HDL CHOLESTEROL 69 mg/dL; LDL CHOLESTEROL,CALCULATED 113 mg/dL; LDL/HDL RATIO 1.6 (<3.6); SODIUM 134 mmol/L (135-145); TOTAL PROTEIN 7.8 g/dL (6.7-8.2); VLDL CHOLESTEROL 12 mg/dL
== END 2019-05-02 16:53 | disposition home or self-care (01) ==
LOC: LAB 16:52
PROVIDERS: ATTEND Internal Medicine
DX: M54.16 Radiculopathy, lumbar region (principal); N40.1 Benign prostatic hyperplasia with lower urinary tract symptoms; E11.9 Type 2 diabetes mellitus without complications; I10 Essential (primary) hypertension; E78.5 Hyperlipidemia, unspecified
CPT/HCPCS: 36415; 80053; 80061; 82043; 83036; 83721; 85025

== ENCOUNTER 2019-05-27 14:27 | Outpatient (CLI) | payer MEDICARE, BC ==
[2019-05-27 14:38] LABS: ABNORMAL LYMPHS % (MANUAL) 0 %; BAND NEUTROPHILS % (MANUAL) 0 %
[2019-05-27 14:39] LABS: BASOPHILS % (AUTO) 0.6 %; EOSINOPHILS % (AUTO) 3.9 %; HGB - HEMOGLOBIN 14.6 g/dL (14.0-18.0); LYMPHOCYTES % (AUTO) 28.5 %; MEAN CORPUSCULAR HEMOGLOBIN 31.3 pg (27.0-31.0); MEAN CORPUSCULAR HGB CONC 34.8 g/dL (32.0-36.0); MEAN CORPUSCULAR VOLUME 89.9 fL (80.0-94.0); MEAN PLATELET VOLUME 8.8 fL (7.4-11.4); MONOCYTES % (AUTO) 10.3 %; NEUTROPHILS % (AUTO) 56.4 %; PLT - PLATELET COUNT 231 10^3/uL (130-450); RED BLOOD COUNT 4.67 10^6/uL (4.70-6.10); RED CELL DISTRIBUTION WIDTH 13.1 % (12.0-15.0); WHITE BLOOD COUNT 6.6 x10^3/uL (4.8-10.8)
[2019-05-27 14:48] LABS: CALCIUM 9.2 mg/dL (8.5-10.3); CREATININE 0.8 mg/dL (0.6-1.2)
[2019-05-27 15:03] LABS: BASOPHILS # (MANUAL) 0.1 10^3/uL (0-0.1); BASOPHILS % (MANUAL) 1 %; DIFFERENTIAL COMMENT MANUAL DIFFERENTIAL; EOSINOPHILS # (MANUAL) 0.3 10^3/uL (0-0.7); LYMPHOCYTES # (MANUAL) 1.8 10^3/uL (1.5-3.5); LYMPHOCYTES % (MANUAL) 27 %; MONOCYTES # (MANUAL) 0.7 10^3/uL (0.0-1.0); PLATELET ESTIMATE, MANUAL NORMAL (130-450,000) (NORMAL); PLATELET MORPHOLOGY NORMAL APPEARANCE (NORMAL); RBC MORPHOLOGY (MULTIPLE) NORMAL APPEARANCE (NORMAL)
== END 2019-05-27 14:28 | disposition home or self-care (01) ==
LOC: LAB 14:27
PROVIDERS: ATTEND Internal Medicine
DX: M54.16 Radiculopathy, lumbar region (principal); N40.1 Benign prostatic hyperplasia with lower urinary tract symptoms; R35.0 Frequency of micturition; E87.6 Hypokalemia; D72.89 Other specified disorders of white blood cells
CPT/HCPCS: 36415; 80048; 85025; 87086

== ENCOUNTER 2019-11-28 07:06 | Day surgery (SDC) | payer MEDICARE, BC ==
[~2019-11-28 07:06] MED LIST: CYCLOPENTOLATE 1% OPHTH DROPS 2 ML ONE; KETOROLAC 0.45% OPHTH DROPS ONE; PHENYLEPHRINE 2.5% OPHTH 2 ML DROPS ONE; PROPARACAINE 0.5% OPHTH DROPS 15 ML ONE
[2019-11-28] MEDS ORDERED: LACTATED RINGERS 500 ML IV ONE (07:29)
[2019-11-28] MEDS ORDERED: TRIAMCIN/MOXIFLOX OPHTHALMIC 0.6 ML VIAL IO ONE ×2 (08:16→08:35)
[2019-11-28] MEDS ORDERED: EPINEPHrine 1 MG/ML AMP ONE (08:16)
[2019-11-28] MEDS ORDERED: BRIMONIDINE 0.2% OPHTH DROPS 5 ML ONE (08:16)
[2019-11-28] MEDS ORDERED: BSS/LIDOCAINE/EPINEPHRINE 1 ML SYRINGE ONE (08:17)
[2019-11-28] MEDS ORDERED: VANCOMYCIN OPHTHALMI 8MG/0.8ML 8 MG/0.8 ML SYRINGE IO ONE ×2 (08:17→08:36)
[2019-11-28] MEDS ORDERED: TIMOLOL 0.5% OPHTH DROPS ONE (08:17)
--- NOTE | 2019-11-28 08:23 | ANESTHESIA ---
Pre-Anesthesia VS, & Labs - Diagnosis L nuclear sclerotic cataract - Procedure L extraction cataract w/IOL Vital Signs: Temp Pulse Resp BP Pulse Ox 36 C L 74 16 128/82 H 100 11/28/19 07:30 11/28/19 07:30 11/28/19 07:30 11/28/19 07:30 11/28/19 07:30 Height 6 ft 1 in Weight (kg) 80 kg Body Mass Index 22.9 - NPO >8 hours - Lab Results Current Lab Results: Laboratory Tests 11/28/19 07:42: POC Whole Bld Glucose 113 H Home Medications and Allergies Home Medications: Ambulatory Orders Albuterol Sulfate [Albuterol Sulfate Hfa] 8.5 gm IH DAILY PRN 11/28/19 Alprazolam [Xanax] 0.5 mg PO DAILY 11/28/19 Aspirin 81 mg PO DAILY 06/18/17 Metformin HCl 500 mg PO DAILY 06/18/17 Montelukast Sodium 10 mg PO DAILY 06/18/17 Potassium Chloride [Micro-K] 10 mg PO DAILY 06/18/17 Pravastatin Sodium 10 mg PO DAILY 06/18/17 Tiotropium [place] [Spiriva Respimat] 1 puffs PO DAILY 06/18/17 Triamterene/Hydrochlorothiazid [Triamterene-Hctz 75-50 mg Tab] 1 tab PO DAILY 06/18/17 Albuterol Sulfate [Albuterol Sulfate Hfa] 8.5 gm IH DAILY PRN 11/28/19 Alprazolam [Xanax] 0.5 mg PO DAILY 11/28/19 Allergies/Adverse Reactions: Allergies Allergy/AdvReac Type Severity Reaction Status Date / Time No Known Drug Allergies Allergy Verified 08/01/18 05:41 Anes History & Medical History - Anesthetic History Anesthesia Complications: reports: No previous complications - Medical History Cardiovascular: reports: Hypertension, High cholesterol Pulmonary: reports: Asthma, Sleep apnea, CPAP use Gastrointestinal: reports: None Urinary: reports: Benign prostate hypertrophy Neuro: reports: None Musculoskeletal: reports: None Endocrine/Autoimmune: reports: Type 2 diabetes Blood Disorders: reports: None Skin: reports: None Smoking Status: Never smoker - Surgical History General: Appendectomy, Colonoscopy Eyes Ears Nose Throat (EENT): Tonsil/Adenoidectomy Urologic: Prostatic surgery Orthopedic: Knee replacement, Spine surgery Exam General: Alert, Oriented x3, Cooperative Dental: WNL Mouth Openin Fingerbreadth Neck Mobility: Reduced Mallampati classification: II Thyromental Distance: greater than 6 cm Respiratory: Lungs clear, Normal breath sounds Cardiovascular: Regular rate Neurological: Normal speech Mental/Cognitive Status: Alert/Oriented X3, Normal for patient Cognitive Status: Within normal limits Plan Anesthesia Type: General (backup), MAC Consent for Procedure(s) Verified and Reviewed: Yes Code Status: Attempt Resuscitation ASA classification: 2-Mild systemic disease Is this case an emergency?: No
[2019-11-28] MEDS ORDERED: MIDAZOLAM 2 MG/2 ML VIAL IVP ONE (08:30)
[2019-11-28] MEDS ORDERED: EPINEPHrine 1 MG/ML AMP IR ONE (08:33)
[2019-11-28] MEDS ORDERED: BRIMONIDINE 0.2% OPHTH DROPS 5 ML OPTH ONE (08:33)
[2019-11-28] MEDS ORDERED: CHONDR SULF/HYALURONATE SYRINGE IO ONE (08:35)
[2019-11-28] MEDS ORDERED: BSS/LIDOCAINE/EPINEPHRINE 1 ML SYRINGE IO ONE (08:35)
[2019-11-28] MEDS ORDERED: TIMOLOL 0.5% OPHTH DROPS OPTH ONE (08:35)
[2019-11-28] MEDS ORDERED: PROPARACAINE 0.5% OPHTH DROPS 15 ML EACHEYE ONE (08:36)
[2019-11-28] MEDS ORDERED: LACTATED RINGERS 1,000 ML IV ONE (08:54)
--- NOTE | 2019-11-28 09:13 | ANESTHESIA POST OP EVALUATION ---
Anesthesia Post Eval - Post Anesthesia Eval Vitals: Last Vital Signs Temp 36.1 C L 11/28/19 08:55 Pulse 65 11/28/19 08:55 Resp 16 11/28/19 08:55 BP 123/71 11/28/19 08:55 Pulse Ox 100 11/28/19 08:55 CV Function Including HR & BP: positive: Stable Pain Control: positive: Satisfactory Nausea & Vomiting: positive: Negative Mental Status: positive: Patient Participates Respiratory Status: Airway Patent Hydration Status: Satisfactory Anesthesia Complications: positive: None
--- NOTE | 2019-11-28 09:17 | OPERATIVE REPORT ---
DATE OF SERVICE: 11/28/2019 Physician: Sandro Cardenas MD PREOPERATIVE DIAGNOSIS: Complex, visually significant cataract, left eye. 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 This was his first cataract surgery. POSTOPERATIVE DIAGNOSIS: Complex, visually significant cataract, left eye. 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 This was his first cataract surgery. PROCEDURE: Phacoemulsification with posterior chamber intraocular lens, with a multifocal and toric IOL. SURGEON: Sandor Cardenas MD ANESTHESIA: Monitored anesthesia care. COMPLICATIONS: None. OPERATIVE INDICATIONS: This is a 79-year-old man with progressive vision loss in the left eye due to 2+ nuclear sclerotic cataract. Best corrected visual acuity was 20/20, with glare to 20/80 in the left eye. Indications for surgery are overall decrease in vision, difficulty seeing street signs, difficulty driving in low light or at night, difficulty driving at night because of headlights from other vehicles, and difficulty with glare or glare or bright lights in any situation. He was consented at length concerning risks and benefits of cataract surgery, after which he expressed a desire to proceed with surgery. OPERATIVE PROCEDURE: Patient was taken to OR #3 and placed under monitored anesthesia care. Surgical timeout was conducted confirming correct patient, correct procedure, and correct surgical site. He was given topical anesthesia, and prepped and draped in the usual sterile fashion. The eye was entered at the 6 and 3 o'clock positions. Intracameral Shugarcaine was injected into the anterior chamber, followed by Viscoat. A Malyugin ring was injected into the anterior chamber and engaged the pupil at 4 points to stabilize the pupil due to floppy iris syndrome from Flomax. A continuous-tear curvilinear capsulorrhexis was performed. The nucleus was hydrodissected and phacoemulsified. The cortex was evacuated using automated infusion and aspiration. Provisc was injected in the capsular bag, and a 25.0 diopter intraocular multifocal lens was inserted into the bag and rotated to its toric axis of 085 (the cornea had been previously marked in the PACU using a Oleg marker to score the cornea indicating axis 085). The Malyugin ring was then disengaged from the pupil margin and removed from the anterior chamber. Infusion and Aspiration was used to evacuate the viscoelastic material being careful to keep the lens in position to keep it on an axis of 085. The eye was inflated to physiologic pressure using balanced salt solution and found to be watertight. Approximately 0.25 mL of a mixture of triamcinolone and moxifloxacin was injected trans sclerally into the vitreous in the inferotemporal quadrant. An additional 0.55 mL of a mixture of triamcinolone, moxifloxacin and vancomycin was injected subconjunctivally in the superior quadrant for infection and inflammation prophylaxis. Wound integrity was checked with Weck-Sakina sponges. The position of the lens was checked one more time and found to be in proper position. Patient was taken from the Operating Room in good condition and given postoperative instructions. TD: 11/28/2019 09:09 MILAGRO
[2019-11-28 09:32] VITALS: BP 123/72
== END 2019-11-28 07:07 | disposition home or self-care (01) ==
LOC: SDS 07:06
PROVIDERS: ATTEND Ophthalmology
DX: E11.36 Type 2 diabetes mellitus with diabetic cataract (principal); H25.12 Age-related nuclear cataract, left eye; Z79.84 Long term (current) use of oral hypoglycemic drugs; H21.81 Floppy iris syndrome; T44.6X5S Adverse effect of alpha-adrenoreceptor antagonists, sequela; I10 Essential (primary) hypertension; J45.909 Unspecified asthma, uncomplicated; G47.33 Obstructive sleep apnea (adult) (pediatric); R33.9 Retention of urine, unspecified; N40.0 Benign prostatic hyperplasia without lower urinary tract symptoms; Z79.899 Other long term (current) drug therapy
CPT/HCPCS: 66982; A9270; J3490; J7120; V2632

== ENCOUNTER 2019-12-30 09:40 | Outpatient (CLI) | payer MEDICARE, BC | END 2019-12-30 23:59 | disposition home or self-care (01) | LOC: COV 09:40 | PROVIDERS: ATTEND Ophthalmology | DX: Z01.818 Encounter for other preprocedural examination (principal); H25.11 Age-related nuclear cataract, right eye; Z20.828 Contact with and (suspected) exposure to other viral communicable diseases ==

== ENCOUNTER 2020-01-02 07:27 | Day surgery (SDC) | payer MEDICARE, BC ==
[2020-01-02] MEDS ORDERED: MIDAZOLAM 2 MG/2 ML VIAL IVP ONE (07:28)
[2020-01-02] MEDS ORDERED: BSS/LIDOCAINE/EPINEPHRINE 1 ML SYRINGE ONE (07:31)
[2020-01-02] MEDS ORDERED: BRIMONIDINE 0.2% OPHTH DROPS 5 ML ONE (07:32)
[2020-01-02] MEDS ORDERED: TRIAMCIN/MOXIFLOX OPHTHALMIC 0.6 ML VIAL IO ONE ×2 (07:32→08:48)
[2020-01-02] MEDS ORDERED: TIMOLOL 0.5% OPHTH DROPS ONE (07:32)
[2020-01-02] MEDS ORDERED: EPINEPHrine 1 MG/ML AMP ONE (07:33)
[2020-01-02] MEDS ORDERED: LACTATED RINGERS 500 ML IV ONE (07:45)
--- NOTE | 2020-01-02 07:54 | ANESTHESIA ---
Pre-Anesthesia VS, & Labs - Diagnosis right nuclear sclerotic cataract - Procedure right CATIOL Vital Signs: Temp Pulse Resp BP Pulse Ox 36.3 C L 75 16 119/68 98 01/02/20 07:37 01/02/20 07:37 01/02/20 07:37 01/02/20 07:37 01/02/20 07:37 Height: 5 ft 11 in Weight (kg): 84.1 kg Body Mass Index: 25.8 BMI Classification: Overweight - NPO >8 hours - Lab Results Lab results reviewed: Yes Home Medications and Allergies Aspirin 81 mg PO DAILY 06/18/17 Metformin HCl 500 mg PO DAILY 06/18/17 Montelukast Sodium 10 mg PO DAILY 06/18/17 Potassium Chloride [Micro-K] 10 mg PO DAILY 06/18/17 Pravastatin Sodium 10 mg PO DAILY 06/18/17 Tiotropium Dwarf [Spiriva Respimat] 1 puffs PO DAILY 06/18/17 Triamterene/Hydrochlorothiazid [Triamterene-Hctz 75-50 mg Tab] 1 tab PO DAILY 06/18/17 Albuterol Sulfate [Albuterol Sulfate Hfa] 8.5 gm IH DAILY PRN 11/28/19 Alprazolam [Xanax] 0.5 mg PO DAILY 11/28/19 Allergies/Adverse Reactions: Allergies Allergy/AdvReac Type Severity Reaction Status Date / Time No Known Drug Allergies Allergy Verified 08/01/18 05:41 Anes History & Medical History - Anesthetic History Anesthesia Complications: reports: No previous complications Family history of Anesthesia Complications: Denies Family history of Malignant Hyperthermia: Denies - Medical History Cardiovascular: reports: Hypertension, High cholesterol Pulmonary: reports: Asthma Gastrointestinal: reports: None Urinary: reports: Benign prostate hypertrophy Neuro: reports: None Musculoskeletal: reports: None Endocrine/Autoimmune: reports: Type 2 diabetes Blood Disorders: reports: None Skin: reports: None Smoking Status: Never smoker - Surgical History Eyes Ears Nose Throat (EENT): Cataracts Orthopedic: Spine surgery Exam General: Alert, Oriented x3, Cooperative, No acute distress Dental: WNL Mouth Openin Fingerbreadth Neck Mobility: Normal Mallampati classification: II Respiratory: Lungs clear, Normal breath sounds, No respiratory distress, No accessory muscle use Cardiovascular: Regular rate, Normal S1, Normal S2, No murmurs Plan Anesthesia Type: MAC Consent for Procedure(s) Verified and Reviewed: Yes Code Status: Attempt Resuscitation ASA classification: 2-Mild systemic disease Is this case an emergency?: No
[2020-01-02] MEDS ORDERED: BSS/LIDOCAINE/EPINEPHRINE 1 ML SYRINGE IO ONE (08:47)
[2020-01-02] MEDS ORDERED: TIMOLOL 0.5% OPHTH DROPS OPTH ONE (08:47)
[2020-01-02] MEDS ORDERED: EPINEPHrine 1 MG/ML AMP IR ONE (08:47)
[2020-01-02] MEDS ORDERED: BRIMONIDINE 0.2% OPHTH DROPS 5 ML OPTH ONE (08:47)
[2020-01-02] MEDS ORDERED: CHONDR SULF/HYALURONATE SYRINGE IO ONE (08:47)
[2020-01-02] MEDS ORDERED: PROPARACAINE 0.5% OPHTH DROPS 15 ML EACHEYE ONE (08:49)
[2020-01-02] MEDS ORDERED: VANCOMYCIN OPHTHALMI 8MG/0.8ML 8 MG/0.8 ML SYRINGE IO ONE ×2 (08:49→12:22)
[2020-01-02] MEDS ORDERED: LACTATED RINGERS 1,000 ML IV ONE (09:01)
--- NOTE | 2020-01-02 09:06 | ANESTHESIA POST OP EVALUATION ---
Anesthesia Post Eval - Post Anesthesia Eval Vitals: Last Vital Signs Temp 36.3 C L 01/02/20 09:03 Pulse 77 01/02/20 09:03 Resp 20 01/02/20 09:03 BP 137/82 H 01/02/20 09:03 Pulse Ox 99 01/02/20 09:03 CV Function Including HR & BP: positive: Stable Pain Control: positive: Satisfactory Nausea & Vomiting: positive: Negative Mental Status: positive: Baseline Respiratory Status: Airway Patent Hydration Status: Satisfactory Anesthesia Complications: positive: None
[2020-01-02 09:21] VITALS: BP 113/73
--- NOTE | 2020-01-02 11:36 | OPERATIVE REPORT ---
DATE OF SERVICE: 01/02/2020 Physician: Sandro Cardenas MD PREOPERATIVE DIAGNOSIS: Complex, visually significant cataract, right eye. Complex due to use of Flomax causing small pupil and floppy iris syndrome. Cataract surgery was performed on the left eye on, 11/28/2019. POSTOPERATIVE DIAGNOSIS: Complex, visually significant cataract, right eye. Complex due to use of Flomax causing small pupil and floppy iris syndrome. Cataract surgery was performed on the left eye on, 11/28/2019. PROCEDURE: Phacoemulsification with posterior chamber intraocular lens implant, right eye. SURGEON: Sandro Cardenas MD ANESTHESIA: Monitored anesthesia care. COMPLICATIONS: None. OPERATIVE INDICATIONS: This is a 79-year-old man with progressive vision loss in the right eye due to a 2-3+ nuclear sclerotic cataract. Best corrected visual acuity was 20/30, with glare to 20/80 in the right eye. Indications for surgery are overall decrease in vision, difficulty seeing street signs, and difficulty with glare or bright lights in any situation. He was consented at length concerning risks and benefits of cataract surgery, after which he expressed a desire to proceed with surgery. OPERATIVE PROCEDURE: The patient was taken to OR #3 and placed under monitored anesthesia care. A surgical timeout was conducted confirming correct patient, correct procedure, and correct surgical site. He was given topical anesthesia, and prepped and draped in the usual sterile fashion. The eye was entered at the 12 and 9 o'clock positions. Intracameral Shugarcaine was injected into the anterior chamber, followed by Viscoat. Because of a small pupil, and floppy iris syndrome due to the use of Flomax, a Malyugin ring was inserted into the anterior chamber and engaged the pupillary margin at 4 points to expand and stabilize the pupil and iris. A continuous-tear curvilinear capsulorrhexis was performed. The nucleus was hydrodissected and phacoemulsified. The cortex was evacuated using automated infusion and aspiration. Provisc was injected in the capsular bag and a 24.0 diopter, toric, multifocal intraocular lens was inserted into the bag and rotated to axis 099 using posadas previously placed with a Oleg corneal marker in the PACU. The Malyugin ring was then disengaged from the pupillary margin and removed from the anterior chamber, and the IOL was again verified to be at axis 099. Infusion and aspiration was used to evacuate the viscoelastic materials. Since the pupil had come down by this time, no more verification of the axis of the IOL was possible. The eye was inflated to physiologic pressure using balanced salt solution and found to be watertight. Approximately 0.25 mL of a mixture of triamcinolone and moxifloxacin was injected transsclerally into the vitreous in the inferotemporal quadrant. An additional 0.55 mL of a mixture of triamcinolone, moxifloxacin and vancomycin was injected subconjunctivally in the superior quadrant for infection and inflammation prophylaxis. Wound integrity was checked with Weck-Sakina sponges. Although unable to verify the axis of the IOL, the IOL did not appear to move during any of these maneuvers. The patient was taken from the Operating Room in good condition and given postoperative instructions. TD: 01/02/2020 09:18 MTDAristides
== END 2020-01-02 07:28 | disposition home or self-care (01) ==
LOC: SDS 07:27
PROVIDERS: ATTEND Ophthalmology
DX: E11.36 Type 2 diabetes mellitus with diabetic cataract (principal); H25.11 Age-related nuclear cataract, right eye; H21.81 Floppy iris syndrome; T44.6X5A Adverse effect of alpha-adrenoreceptor antagonists, initial encounter; H18.00 Unspecified corneal deposit; J45.909 Unspecified asthma, uncomplicated; I10 Essential (primary) hypertension; E78.00 Pure hypercholesterolemia, unspecified; N40.0 Benign prostatic hyperplasia without lower urinary tract symptoms; Z79.82 Long term (current) use of aspirin; Z79.84 Long term (current) use of oral hypoglycemic drugs; Z79.51 Long term (current) use of inhaled steroids; Z87.891 Personal history of nicotine dependence
CPT/HCPCS: 66982; A9270; J3490; J7120; V2632

== ENCOUNTER 2020-06-15 13:00 | Outpatient (CLI) | payer MEDICARE, BC ==
[2020-06-15 17:22] LABS: BILIRUBIN,URINE NEGATIVE (NEGATIVE); GLUCOSE, URINE (UA) NEGATIVE (NEGATIVE); KETONES,URINE (UA) NEGATIVE (NEGATIVE); LEUKOCYTE ESTERASE, URINE SMALL (NEGATIVE); NITRITE,URINE NEGATIVE (NEGATIVE); OCCULT BLOOD,URINE TRACE-INTA (NEGATIVE); PH,URINE 6.5 PH (5.0-7.5); PROTEIN,URINE TRACE mg/dL (NEGATIVE); UROBILINOGEN,URINE 0.2 (NORMAL) E.U./dL (NORMAL)
[2020-06-15 17:23] LABS: CLARITY,URINE SL. CLOUDY (CLEAR)
[2020-06-15 17:32] LABS: RBC,URINE 0-5 /HPF (0-5); WBC,URINE >25 /HPF (0-3)
[2020-06-15 17:33] LABS: BACTERIA,URINE Few /HPF (None Seen); MUCUS,URINE Few Strands; SQUAMOUS EPITHELIAL CELL,UR RARE Squamous (<= Few)
== END 2020-06-15 13:01 | disposition home or self-care (01) ==
LOC: LAB 13:00
PROVIDERS: ATTEND Family Medicine
DX: N30.01 Acute cystitis with hematuria (principal)
CPT/HCPCS: 36415; 81001; 87040

== ENCOUNTER 2020-08-07 14:31 | Emergency (ER) | payer MEDICARE, BC ==
--- OUTSIDE RECORDS SUMMARY | 2020-08-07 14:34 | EXTERNAL MEDICAL SUMMARY RPT | Continuity of Care Document ---
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 [id number] Pain in left knee [facility] [id number] Presence of coronary angioplasty implan t and graft [facility] 20191014 Presence of unspecified artificial knee joint [facility] [id number] 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, lumbar [facility] karen [id number] Encounter for screening for malignant n eoplasm of [facility] prostate [id number] Essential (primary) hypertension [facility] [id number] Other spondylosis with radiculopathy, 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 [id number] Unilateral primary osteoarthritis, left knee [facility] [id number] Urinary tract infection, site not speci [facility] Medications date description facility [id number] Cephalexin 500 MG Oral Capsule [facility] [id number] Levofloxacin 750 MG Oral Tablet [facility] Procedures date description facility [id number] [facility] date description facility [id number] [facility] date description facility [id number] [facility] date description facility [id number] [facility] date description facility [id number] [facility] date description facility [id number] [facility] date description facility [id number] [facility] date description facility [id number] [facility] date description facility [id number] [facility] date description facility [id number] [facility] date description facility [id number] [facility] date description facility [id number] [facility] date description facility [id number] [facility] date description facility [id number] [facility] date description facility [id number] [facility] date description facility [id number] [facility] date description facility [id number] [facility] date description facility [id number] [facility] Vital Signs date measurement value source [id number] BMI 23.8 kg/m2 08669305 BP_diastolic 60 mm[Hg] 20200515 BP_systolic 126 mm[Hg] 20200515 heart_rate 78 /min 20200515 height_metric 185.42 cm 20200515 height_standard 73 in 20200515 respiration_rate 16 /min 20200515 temperature_metric 36.33 C 20200515 temperature_standard 97.4 F 20200515 weight_metric 37.07 kg 20200515 weight_standard 81.73 lb date measurement value source 20200525 BMI 24.0 kg/m2 20200525 BP_diastolic 66 mm[Hg] 20200525 BP_systolic 128 mm[Hg] 20200525 heart_rate 81 /min 20200525 height_metric 185.42 cm 20200525 height_standard 73 in 20200525 respiration_rate 16 /min 20200525 temperature_metric 36.22 C 20200525 temperature_standard 97.2 F 20200525 weight_metric 37.55 kg 20200525 weight_standard 82.78 lb date measurement value source 20200605 BMI 23.8 kg/m2 20200605 BP_diastolic 62 mm[Hg] 20200605 BP_systolic 122 mm[Hg] 20200605 heart_rate 78 /min 20200605 height_metric 185.42 cm 20200605 height_standard 73 in 20200605 respiration_rate 16 /min 20200605 temperature_metric 36.28 C 20200605 temperature_standard 97.3 F 20200605 weight_metric 37.27 kg 20200605 weight_standard 82.16 lb date measurement value source 20200610 BMI 27.3 kg/m2 20200610 BP_diastolic 69 mm[Hg] 20200610 BP_systolic 156 mm[Hg] 20200610 heart_rate 71 /min 20200610 height_metric 175.26 cm 20200610 height_standard 69 in 20200610 respiration_rate 18 /min 20200610 temperature_metric 37.06 C 20200610 temperature_standard 98.7 F 20200610 weight_metric 38.06 kg 20200610 weight_standard 83.92 lb date measurement value source 20200612 BMI 22.9 kg/m2 20200612 BP_diastolic 59 mm[Hg] 20200612 BP_systolic 105 mm[Hg] 20200612 heart_rate 84 /min 20200612 height_metric 185.42 cm 20200612 height_standard 73 in 20200612 respiration_rate 21 /min 20200612 temperature_metric 36.78 C 20200612 temperature_standard 98.2 F 20200612 weight_metric 35.8 kg 20200612 weight_standard 78.92 lb date measurement value source 20200626 BP_diastolic 76 mm[Hg] 20200626 BP_systolic 140 mm[Hg] 20200626 heart_rate 84 /min 20200626 respiration_rate 16 /min 20200626 temperature_metric 36.28 C 20200626 temperature_standard 97.3 F 20200626 weight_metric 37.86 kg 20200626 weight_standard 83.46 lb Social History date description facility [id number]
--- OUTSIDE RECORDS SUMMARY | 2020-08-07 14:37 | EXTERNAL MEDICAL SUMMARY RPT | Continuity of Care Document ---
:1940 Demographics Phone Unavailable Preferred Language Surinamese Marital Status Unknown Quaker Affiliation Unknown Race Unknown Ethnic Group Unknown Author Organization [place] Address [address] [phone] Phone Care Team Providers Name Role Phone Horras Unavailable Unavailable Horras Unavailable Unavailable Phil Unavailable Unavailable Problems date description facility [id number] Malignant neoplasm of prostate [facility] 20191014 Other specified postprocedural states 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 [id number] Presence of coronary angioplasty implan t and graft [facility] 20191014 Presence of unspecified artificial knee joint 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 karen [id number] Encounter for screening for malignant n eoplasm of 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 [id number] Urinary tract infection, site not speci [facility] Medications date description facility [id number] Cephalexin [address] [facility] [id number] Levofloxacin [address] [facility] Procedures date description facility [id number] [facility] date description facility [id number] [facility] date description facility [id number] [facility] date description facility [id number] [facility] date description facility [id number] [facility] date description facility [id number] [facility] date description facility [id number] [facility] date description facility [id number] [facility] date description facility [id number] [facility] date description facility [id number] [facility] date description facility [id number] [facility] date description facility [id number] [facility] date description facility [id number] [facility] date description facility [id number] [facility] date description facility [id number] [facility] date description facility [id number] [facility] date description facility [id number] [facility] date description facility [id number] [facility] Vital Signs date measurement value source [id number] BMI 23.8 kg/m2 74391210 BP_diastolic 60 mm[Hg] 20200515 BP_systolic 126 mm[Hg] [...] 83.46 lb Social History date description facility [id number]
--- NOTE | 2020-08-07 14:53 | XRAY Report ---
PROCEDURE: Chest 1 View X-Ray INDICATIONS: Chest Pain TECHNIQUE: One view of the chest was acquired. COMPARISON: 12/06/2017 FINDINGS: Surgical changes and devices: Partially imaged hardware from prior anterior cervical discectomy and f usion. Lungs and pleura: No pleural effusions or pneumothorax. Lungs are clear. Mediastinum: Mediastinal contours appear normal. Heart size is normal. Bones and chest wall: No suspicious bony lesions. Overlying soft tissues appear unremarkable. IMPRESSION: Chest without acute cardiopulmonary abnormalities. Reviewed by: Shaquille Nesbitt MD on 08/07/2020 1:52 PM AKDT Approved by: Shaquille Nesbitt MD on 08/07/2020 1:52 PM AKDT Station ID: [id number]
[2020-08-07 14:55] LABS: BASOPHILS # (AUTO) 0.1 10^3/uL (0.0-0.1); BASOPHILS % (AUTO) 0.7 %; EOSINOPHILS # (AUTO) 0.1 10^3/uL (0.0-0.7); EOSINOPHILS % (AUTO) 1.5 %; HCT - HEMATOCRIT 40.6 % (42.0-52.0); HGB - HEMOGLOBIN 13.8 g/dL (14.0-18.0); LYMPHOCYTES # (AUTO) 1.5 10^3/uL (1.5-3.5); LYMPHOCYTES % (AUTO) 17.3 %; MEAN CORPUSCULAR HEMOGLOBIN 31.7 pg (27.0-31.0); MEAN CORPUSCULAR VOLUME 93.1 fL (80.0-94.0); MEAN PLATELET VOLUME 8.5 fL (7.4-11.4); MONOCYTES % (AUTO) 11.4 %; NEUTROPHILS # (AUTO) 5.9 10^3/uL (1.5-6.6); NEUTROPHILS % (AUTO) 68.8 %; PLT - PLATELET COUNT 219 10^3/uL (130-450); RED BLOOD COUNT 4.36 10^6/uL (4.70-6.10); RED CELL DISTRIBUTION WIDTH 13.3 % (12.0-15.0); WHITE BLOOD COUNT 8.6 x10^3/uL (4.8-10.8)
[2020-08-07] MEDS ORDERED: METOPROLOL TARTRATE 50 MG TABLET PO STA (14:56)
[2020-08-07] MEDS ORDERED: ATORVASTATIN 40 MG TABLET PO STA (14:56)
--- NOTE | 2020-08-07 14:56 | ED Physician Documentation ---
PD HPI CHEST PAIN - Stated complaint Stated Complaint: CP/SOA - Chief complaint Chief Complaint: Cardiac - History obtained from History obtained from: Patient - Additional information Additional information: 79-year-old gentleman with no history of coronary disease presents with substernal chest pressure and feeling like "crap." Since 2 AM this morning. Pain worsens with deep breathing. He was seen by his physician yesterday for what sounds like musculoskeletal pains and was started on levofloxacin for a UTI of which she has had 1 dose. He does have a history of prostatic hypertrophy. He does have a remote history of TIA with carotid endarterectomy. Only medication is aspirin. He received 325 mg of aspirin prior to arrival. Review of Systems Ten Systems: 10 systems reviewed and negative Constitutional: denies: Fever, Chills Cardiac: reports: Chest pain / pressure. denies: Palpitations, Pedal edema, Calf pain Respiratory: reports: Dyspnea. denies: Cough, Hemoptysis, Wheezing PD PAST MEDICAL HISTORY - Past Medical History Past Medical History: Yes Cardiovascular: Hypertension, High cholesterol Respiratory: Asthma Neuro: None Endocrine/Autoimmune: Type 2 diabetes GI: None : Benign prostate hypertrophy HEENT: None Psych: None Musculoskeletal: None Derm: None - Past Surgical History Past Surgical History: Yes Ortho: Spine surgery HEENT: Cataracts - Present Medications Home Medications: Ambulatory Orders Medication Instructions Recorded Confirmed Aspirin 81 mg PO DAILY 06/18/17 08/07/20 Metformin HCl 500 mg PO DAILY 06/18/17 08/07/20 Montelukast Sodium 10 mg PO DAILY 06/18/17 08/07/20 Potassium Chloride [Micro-K] 10 mg PO DAILY 06/18/17 08/07/20 Pravastatin Sodium 10 mg PO DAILY 06/18/17 08/07/20 Tiotropium [place] [Spiriva 1 puffs PO DAILY 06/18/17 08/07/20 Respimat] Triamterene/Hydrochlorothiazid 1 tab PO DAILY 06/18/17 08/07/20 [Triamterene-Hctz 75-50 mg Tab] Albuterol Sulfate [Albuterol 8.5 gm IH DAILY PRN 11/28/19 08/07/20 Sulfate Hfa] Alprazolam [Xanax] 0.5 mg PO DAILY 11/28/19 08/07/20 levoFLOXacin [Levofloxacin] 750 mg PO DAILY 08/07/20 08/07/20 - Allergies Allergies/Adverse Reactions: Allergies Allergy/AdvReac Type Severity Reaction Status Date / Time No Known Drug Allergies Allergy Verified 08/07/20 14:43 - Social History Does the pt smoke?: No Smoking Status: Never smoker Does the pt drink ETOH?: No ETOH Use: Wine Does the pt have substance abuse?: No - Immunizations Immunizations are current?: Yes - POLST Patient has POLST: No PD ED PE NORMAL - Vitals Vital signs reviewed: Yes (HTN mildly and hypoxic on room air) - General General: Alert and oriented X 3, Other (Appears slightly but not terribly ill) - HEENT HEENT: PERRL, EOMI - Neck Neck: Supple, no meningeal sign, No bony TTP - Cardiac Cardiac: RRR, No murmur - Respiratory Respiratory: No respiratory distress, Clear bilaterally - Abdomen Abdomen: Normal bowel sounds, Soft, Non tender - Back Back: No CVA TTP, No spinal TTP - Derm Derm: Normal color, Warm and dry - Extremities Extremities: No edema, No calf tenderness / cord - Neuro Neuro: Alert and oriented X 3, No motor deficit, No sensory deficit, Normal speech Eye Opening: Spontaneous Motor: Obeys Commands - Psych Psych: Normal mood, Normal affect Results - Vitals Vitals: Vital Signs - 24 hr 08/07/20 08/07/20 08/07/20 14:35 14:51 15:54 Temperature 35.8 C L Heart Rate 91 87 90 Respiratory 16 14 22 Rate Blood Pressure 135/82 H 132/80 H 133/70 H O2 Saturation 91 L 100 100 08/07/20 17:03 Temperature Heart Rate 77 Respiratory 16 Rate Blood Pressure 122/76 O2 Saturation 100 Oxygen O2 Source Room air - EKG (time done) 1439 Rate: Rate (enter#) Rhythm: NSR Intervals: LBBB Compare to prior EKG: Changed from prior EKG (Compared with last EKG on the chart dated December 06, 2017, it has definitely changed. He may have had an early left bundle branch morphology then, but the QRS diameter was only 99 ms. Today the QRS diameter is 154 ms with more typical left bundle branch morphology. ), Other (Possibly positive Sgarbossa in I/L/V5) 1617 Rate: Rate (enter#) (81) Rhythm: NSR Intervals: LBBB Compare to prior EKG: Unchanged from prior EKG (from #1) - Labs Labs: Laboratory Tests 08/07/20 08/07/20 08/07/20 14:36 14:43 14:43 WBC 8.6 RBC 4.36 L Hgb 13.8 L Hct 40.6 L MCV 93.1 MCH 31.7 H MCHC 34.0 RDW 13.3 Plt Count 219 MPV 8.5 Neut # (Auto) 5.9 Lymph # (Auto) 1.5 [place] # (Auto) 1.0 Eos # (Auto) 0.1 Baso # (Auto) 0.1 Absolute Nucleated RBC 0.00 Nucleated RBC % 0.0 Sodium 137 Potassium 3.3 L Chloride 100 L Carbon Dioxide 27 Anion Gap 10.0 BUN 23 H Creatinine 0.9 Estimated GFR (MDRD) 82 L Glucose 121 H Calcium 9.0 Total Bilirubin 0.6 AST 24 ALT 26 Alkaline Phosphatase 105 Troponin I High Sens 4.0 Total Protein 7.1 Albumin 3.5 Globulin 3.6 Albumin/Globulin Ratio 1.0 Lipase 26 Nasal Adenovirus (PCR) Nasal B. parapertussis DNA (PCR) Nasal Coronavir 229E PCR Nasal Coronavir HKU1 PCR Nasal Coronavir NL63 PCR Nasal Coronavir OC43 PCR Nasal Enterovir/Rhinovir PCR Nasal Influenza B PCR Nasal Influenza A PCR Nasal Parainfluen 1 PCR Nasal Parainfluen 2 PCR Nasal Parainfluen 3 PCR Nasal Parainfluen 4 PCR Nasal RSV (PCR) Nasal B.pertussis DNA PCR Nasal C.pneumoniae (PCR) Jake Human Metapneumo PCR Nasal M.pneumoniae (PCR) Nasal SARS-CoV-2 (PCR) 08/07/20 08/07/20 15:28 16:32 WBC RBC Hgb Hct MCV MCH MCHC RDW Plt Count MPV Neut # (Auto) Lymph # (Auto) [place] # (Auto) Eos # (Auto) Baso # (Auto) Absolute Nucleated RBC Nucleated RBC % Sodium Potassium Chloride Carbon Dioxide Anion Gap BUN Creatinine Estimated GFR (MDRD) Glucose Calcium Total Bilirubin AST ALT Alkaline Phosphatase Troponin I High Sens 5.0 Total Protein Albumin Globulin Albumin/Globulin Ratio Lipase Nasal Adenovirus (PCR) NOT DETECTED Nasal B. parapertussis DNA (PCR) NOT DETECTED Nasal Coronavir 229E PCR NOT DETECTED Nasal Coronavir HKU1 PCR NOT DETECTED Nasal Coronavir NL63 PCR NOT DETECTED Nasal Coronavir OC43 PCR NOT DETECTED Nasal Enterovir/Rhinovir PCR NOT DETECTED Nasal Influenza B PCR NOT DETECTED Nasal Influenza A PCR NOT DETECTED Nasal Parainfluen 1 PCR NOT DETECTED Nasal Parainfluen 2 PCR NOT DETECTED Nasal Parainfluen 3 PCR NOT DETECTED Nasal Parainfluen 4 PCR NOT DETECTED Nasal RSV (PCR) NOT DETECTED Nasal B.pertussis DNA PCR NOT DETECTED Nasal C.pneumoniae (PCR) NOT DETECTED Jake Human Metapneumo PCR NOT DETECTED Nasal M.pneumoniae (PCR) NOT DETECTED Nasal SARS-CoV-2 (PCR) NOT DETECTED PD MEDICAL DECISION MAKING - ED course ED course: 79-year-old gentleman presents with substernal chest pressure since 2 AM. He has a new left bundle branch over the last couple of years. His initial troponin was negative. There was some pleuritic component to the pain so CT angiography was done without evidence of PE but he does have atherosclerosis of the coronary arteries and emphysema. He is a former smoker. He stated he had a stent in his neck, but his states that 25 years ago had a stent placed in his heart. He had some increasing chest pain but no dynamic EKG declined changes in a second troponin was ordered. He was therapeutically anticoagulated on a heparin drip in the interim. Call placed to [facility] for potential transfer at 4:45 PM. updated by phone. I spoke with the hospitalist there, Dr. Salter. He agrees to accept as long as the automobile body worker on-call is in agreement and subsequently I spoke with Dr. Curran who is the on-call already automobile body worker. And he agreed with transfer for further evaluation and treatment. Departure - Departure Disposition: 02 Transfer Acute Care Hosp Clinical Impression: Unstable angina, LBBB (left bundle branch block) Condition: Serious
[2020-08-07] MEDS ORDERED: HEPARIN 25000UNITS/500ML (D5W) 25,000 UNIT/500 ML BAG IV SCH (15:00)
[2020-08-07 15:09] LABS: ALBUMIN 3.5 g/dL (3.2-5.5); BILIRUBIN,TOTAL 0.6 mg/dL (0.2-1.0); CREATININE 0.9 mg/dL (0.6-1.2); POTASSIUM 3.3 mmol/L (3.5-5.0); TOTAL PROTEIN 7.1 g/dL (6.7-8.2)
[2020-08-07] MEDS ORDERED: IOPAMIDOL-300 100 ML VIAL ONE (15:33)
[2020-08-07] MEDS ORDERED: IOPAMIDOL-300 100 ML VIAL IVP ONE (15:55)
--- NOTE | 2020-08-07 16:21 | CT Report ---
PROCEDURE: ANGIO CHEST W/WO INDICATIONS: cp, PE PROTOCOL CONTRAST: IV CONTRAST: Isovue 300 ml: 80 PO CONTRAST: *NO PO CONTRAST TECHNIQUE: After the administration of intravenous contrast, 2 mm thick sections acquired from the pulmonary api emelia to the posterior costophrenic angles. 3-dimensional maximum intensity projection (MIP) coronal a nd sagittal reformats were then acquired through the thorax. For radiation dose reduction, the follow ing was used: automated exposure control, adjustment of mA and/or kV according to patient size. COMPARISON: Chest radiographs dated 08/07/2020 and 12/06/2017. FINDINGS: Image quality: Excellent. Pulmonary arteries: Pulmonary arteries are normal in size, and demonstrate no intraluminal filling d efects to suggest central pulmonary embolism. Lungs and pleura: Mild centrilobular emphysema is seen. Dependent atelectasis/scarring scattered in p eriphery of bilateral lower lung mayo are noted. There is a 1 cm solid nodule seen in lateral perip raffi of right lung base series 6 image 263. No pleural effusions or pneumothorax. Central and periph eral airways are patent. Mediastinum: Heart size is mildly enlarged, without pericardial effusion. Moderate atherosclerotic calcifications are noted in thoracic aorta and coronary arteries. No mediastinal or hilar adenopathy. Thoracic aorta is normal in caliber and enhancement. Esophagus is normal in caliber, with a small hiatal hernia. Bones and chest wall: No suspicious bony lesions. Ribs and thoracic spine appear intact throughout. The thyroid is normal. No axillary or supraclavicular adenopathy. Abdomen: Visualized upper abdominal solid organs appear normal in the early arterial phase of enhanc ement. IMPRESSION: 1. No evidence of pulmonary emboli. 2. Mild cardiomegaly, no pericardial effusion. Moderate atherosclerotic disease. No thoracic aortic a neurysm. 3. Bibasilar atelectasis and mild centrilobular emphysema. 1 cm solid nodule seen in lateral aspect o f right lung base. Follow-up study in 3 months is recommended for evaluation of stability. 4. No mediastinal or hilar lymphadenopathy. Small hiatal hernia. Reviewed by: Brennan Johnston MD on 08/07/2020 4:20 PM PDT Approved by: Brennan Johnston MD on 08/07/2020 4:20 PM PDT Station ID: [id number]
[2020-08-07 16:46] LABS: B. PARAPERTUSSIS- RESP PCR PAN NOT DETECTED; B. PERTUSSIS- RESP PCR PANEL NOT DETECTED; C. PNEUMONIAE- RESP PCR PANEL NOT DETECTED; CORONAVIRUS 229E-RESP PCR NOT DETECTED; CORONAVIRUS HKU1-RESP PCR NOT DETECTED; CORONAVIRUS NL63-RESP PCR NOT DETECTED; CORONAVIRUS OC43-RESP PCR NOT DETECTED; HUMAN METAPNEUMOVIRUS NOT DETECTED; INFLUENZA A- RESP PCR PANEL NOT DETECTED; INFLUENZA B - RESP PCR PANEL NOT DETECTED; M. PNEUMONIAE- RESP PCR PANEL NOT DETECTED; PARAINFLUENZA VIRUS 1 NOT DETECTED; PARAINFLUENZA VIRUS 2 NOT DETECTED; PARAINFLUENZA VIRUS 3 NOT DETECTED; PARAINFLUENZA VIRUS 4 NOT DETECTED; RHINOVIRUS/ENTEROVIRUS NOT DETECTED; RSV- RESP PCR PANEL NOT DETECTED; SARS-CoV-2 -RESP PCR PANEL NOT DETECTED
[2020-08-07 19:24] VITALS: BP 133/68
== END 2020-08-07 19:35 | disposition short-term general hospital (02) ==
LOC: ED 14:31
DX: I25.110 Atherosclerotic heart disease of native coronary artery with unstable angina pectoris (principal); I44.7 Left bundle-branch block, unspecified; Z95.5 Presence of coronary angioplasty implant and graft; R09.02 Hypoxemia; J43.2 Centrilobular emphysema; Z20.822 Contact with and (suspected) exposure to COVID-19; I10 Essential (primary) hypertension; E11.9 Type 2 diabetes mellitus without complications; Z79.84 Long term (current) use of oral hypoglycemic drugs; Z79.82 Long term (current) use of aspirin; N40.0 Benign prostatic hyperplasia without lower urinary tract symptoms; Z86.73 Personal history of transient ischemic attack (TIA), and cerebral infarction without residual deficits; Z87.891 Personal history of nicotine dependence
CPT/HCPCS: 36415; 71045; 71275; 80053; 83690; 84484; 85025; 87631; 93005; 96374; 99285; A9270; Q9967; 0202U

== ENCOUNTER 2020-08-07 19:31 | Outpatient (CLI) | payer MEDICARE, BC | END 2020-08-07 19:32 | disposition short-term general hospital (02) | LOC: EMS 19:31 | PROVIDERS: ATTEND Emergency Medicine | DX: I20.0 Unstable angina (principal) | CPT/HCPCS: A0425; A0426 ==

== ENCOUNTER 2020-08-27 11:07 | Outpatient (CLI) | payer MEDICARE, BC ==
[2020-08-27 15:07] LABS: BILIRUBIN,URINE NEGATIVE (NEGATIVE); GLUCOSE, URINE (UA) NEGATIVE (NEGATIVE); KETONES,URINE (UA) NEGATIVE (NEGATIVE); LEUKOCYTE ESTERASE, URINE NEGATIVE (NEGATIVE); NITRITE,URINE NEGATIVE (NEGATIVE); OCCULT BLOOD,URINE MODERATE (NEGATIVE); PROTEIN,URINE NEGATIVE (NEGATIVE); UROBILINOGEN,URINE 1 (NORMAL) E.U./dL (NORMAL)
[2020-08-27 15:09] LABS: CLARITY,URINE HAZY (CLEAR)
[2020-08-27 15:26] LABS: BACTERIA,URINE Rare /HPF (None Seen); SQUAMOUS EPITHELIAL CELL,UR NONE SEEN (<= Few)
== END 2020-08-27 11:08 | disposition home or self-care (01) ==
LOC: LAB 11:07
DX: R33.9 Retention of urine, unspecified (principal)
CPT/HCPCS: 81001; 81003; 87077; 87086; 87181

== ENCOUNTER 2020-09-10 11:29 | Outpatient (CLI) | payer MEDICARE, BC ==
[2020-09-10 11:50] LABS: BILIRUBIN,URINE NEGATIVE (NEGATIVE); GLUCOSE, URINE (UA) NEGATIVE (NEGATIVE); KETONES,URINE (UA) NEGATIVE (NEGATIVE); LEUKOCYTE ESTERASE, URINE SMALL (NEGATIVE); NITRITE,URINE NEGATIVE (NEGATIVE); OCCULT BLOOD,URINE SMALL (NEGATIVE); PROTEIN,URINE NEGATIVE (NEGATIVE); UROBILINOGEN,URINE 0.2 (NORMAL) E.U./dL (NORMAL)
[2020-09-10 11:51] LABS: CLARITY,URINE HAZY (CLEAR)
[2020-09-10 11:59] LABS: BACTERIA,URINE Rare /HPF (None Seen); RBC,URINE TNTC /HPF (0-5); SQUAMOUS EPITHELIAL CELL,UR FEW Squamous (<= Few)
== END 2020-09-10 11:30 | disposition home or self-care (01) ==
LOC: LAB 11:29
PROVIDERS: ATTEND Physician Assistant Medical
DX: Z87.440 Personal history of urinary (tract) infections (principal)
CPT/HCPCS: 81001; 87086

== ENCOUNTER 2022-02-16 09:23 | Outpatient (CLI) | payer MEDICARE, BC ==
[2022-02-16 10:13] LABS: BILIRUBIN,URINE NEGATIVE (NEGATIVE); GLUCOSE, URINE (UA) NEGATIVE (NEGATIVE); KETONES,URINE (UA) NEGATIVE (NEGATIVE); LEUKOCYTE ESTERASE, URINE TRACE (NEGATIVE); NITRITE,URINE NEGATIVE (NEGATIVE); OCCULT BLOOD,URINE LARGE (NEGATIVE); PROTEIN,URINE >=300 mg/dL (NEGATIVE); UROBILINOGEN,URINE 1 (NORMAL) E.U./dL (NORMAL)
[2022-02-16 10:18] LABS: CLARITY,URINE BLOODY (CLEAR)
[2022-02-16 10:36] LABS: RBC,URINE TNTC /HPF (0-5)
[2022-02-16 10:37] LABS: EPITHELIAL CELLS,UR FEW Transitional /HPF (<= Few); SQUAMOUS EPITHELIAL CELL,UR RARE Squamous (<= Few)
[2022-02-16 10:38] LABS: BACTERIA,URINE Few /HPF (None Seen)
== END 2022-02-16 09:24 | disposition home or self-care (01) ==
LOC: LAB 09:23
PROVIDERS: ATTEND Physician Assistant Medical
DX: R31.0 Gross hematuria (principal); R39.9 Unspecified symptoms and signs involving the genitourinary system
CPT/HCPCS: 81001; 87077; 87086; 87181

== ENCOUNTER 2022-11-21 08:54 | Emergency (ER) | payer MEDICARE, BC ==
[2022-11-21] MEDS ORDERED: SODIUM CHLORIDE 0.9% 1,000 ML IV STA ×2 (09:17→10:48)
--- OUTSIDE RECORDS SUMMARY | 2022-11-21 09:21 | EXTERNAL MEDICAL SUMMARY RPT | Continuity of Care Document ---
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
--- NOTE | 2022-11-21 09:33 | ED Physician Documentation ---
History of Present Illness - Stated complaint Stated Complaint: FEVER - Chief complaint Chief Complaint: Fever - History obtained from History obtained from: Patient, Family - Additonal information Additional information: The patient comes to the emergency department with his for chief complaint of fever and urinary frequency and dysuria. He states that the urinary symptoms started yesterday and gradually worsened over the course of the night. He states that he was up all night going to the bathroom constantly. He did not have any nausea or vomiting, but did develop a fever overnight of about 101. His gave him a gram of Tylenol around 3:00 this morning. The patient states that he has felt a bit dizzy when he gets up to walk. He denies any respiratory symptoms. No abdominal pain. He does have some low back pain. states they are concerned because the patient has had sepsis perioperatively before and they want to make sure he is not septic now with a possible urinary tract infection. No other complaints at this time. PD PAST MEDICAL HISTORY - Past Medical History Cardiovascular: Hypertension, High cholesterol Respiratory: Asthma Neuro: None Endocrine/Autoimmune: Type 2 diabetes GI: None : Benign prostate hypertrophy HEENT: None Psych: None Musculoskeletal: None Derm: None - Past Surgical History Past Surgical History: Yes Ortho: Spine surgery HEENT: Cataracts - Present Medications Home Medications: Ambulatory Orders Medication Instructions Recorded Confirmed Aspirin 81 mg PO DAILY 06/18/17 08/07/20 Metformin HCl 500 mg PO DAILY 06/18/17 08/07/20 Montelukast Sodium 10 mg PO DAILY 06/18/17 08/07/20 Potassium Chloride [Micro-K] 10 mg PO DAILY 06/18/17 08/07/20 Pravastatin Sodium 10 mg PO DAILY 06/18/17 08/07/20 Tiotropium [place] [Spiriva 1 puffs PO DAILY 06/18/17 08/07/20 Respimat] Triamterene/Hydrochlorothiazid 1 tab PO DAILY 06/18/17 08/07/20 [Triamterene-Hctz 75-50 mg Tab] ALPRAZolam [Xanax] 0.5 mg PO DAILY 11/28/19 08/07/20 Albuterol Sulfate [Albuterol 8.5 gm IH DAILY PRN 11/28/19 08/07/20 Sulfate Hfa] levoFLOXacin [Levofloxacin] 750 mg PO DAILY 08/07/20 08/07/20 Phenazopyridine HCl [Pyridium] 200 mg PO TID #6 tablet 11/21/22 levoFLOXacin [Levaquin] 500 mg PO QD #28 tablet 11/21/22 - Allergies Allergies/Adverse Reactions: Allergies Allergy/AdvReac Type Severity Reaction Status Date / Time No Known Drug Allergies Allergy Verified 08/07/20 14:43 - Social History Does the pt smoke?: No Smoking Status: Never smoker Does the pt drink ETOH?: No Does the pt have substance abuse?: No - Immunizations Immunizations are current?: Yes - POLST Patient has POLST: No PD ED PE NORMAL - Vitals Vital signs reviewed: Yes - General General: Alert and oriented X 3, No acute distress, Well developed/nourished, Other (Well-appearing older man in no apparent distress.) - HEENT HEENT: Atraumatic, PERRL, EOMI, Moist mucous membranes - Neck Neck: Supple, no meningeal sign - Cardiac Cardiac: RRR, No murmur - Respiratory Respiratory: No respiratory distress, Clear bilaterally - Abdomen Abdomen: Soft, Non tender, Non distended - Back Back: No CVA TTP - Derm Derm: Normal color, Warm and dry, No rash - Extremities Extremities: No deformity, No edema - Neuro Neuro: Alert and oriented X 3, physical sciences professor 2-12 intact, Normal speech, Other (Grossly intact) - Psych Psych: Normal mood, Normal affect Results - Vitals Vitals: Oxygen O2 Source Room air - Labs Labs: Microbiology 11/21/22 09:32 Blood Culture - Final Blood - Right Iv-Start NO GROWTH AFTER 5 DAYS 11/21/22 09:32 Blood Culture - Final Blood - Left Arm NO GROWTH AFTER 5 DAYS 11/21/22 10:54 Urine Culture - Final Urine,Random Klebsiella Pneumoniae Laboratory Tests 11/21/22 11/21/22 11/21/22 09:32 09:32 09:32 WBC 12.7 H RBC 4.61 L Hgb 14.5 Hct 42.8 MCV 92.8 MCH 31.5 H MCHC 33.9 RDW 13.0 Plt Count 222 MPV 8.8 Neut # (Auto) 9.9 H Lymph # (Auto) 1.3 L [place] # (Auto) 1.4 H Eos # (Auto) 0.0 Baso # (Auto) 0.1 Absolute Nucleated RBC 0.00 Nucleated RBC % 0.0 Sodium 135 Potassium 4.0 Chloride 97 L Carbon Dioxide 32 Anion Gap 6.0 BUN 16 Creatinine 0.7 Estimated GFR (MDRD) 108 Glucose 124 H Lactic Acid 1.7 Calcium 9.2 Total Bilirubin 1.0 AST 21 ALT 20 Alkaline Phosphatase 69 Total Protein 7.0 Albumin 4.1 Globulin 2.9 Albumin/Globulin Ratio 1.4 Lipase 16 Urine Color Urine Clarity Urine pH Ur Specific [place] Urine Protein Urine Glucose (UA) Urine Ketones Urine Occult Blood Urine Nitrite Urine Bilirubin Urine Urobilinogen Ur Leukocyte Esterase Urine RBC Urine WBC Ur Squamous Epith Cells Urine Bacteria Ur Microscopic Review Urine Culture Comments 11/21/22 10:54 WBC RBC Hgb Hct MCV MCH MCHC RDW Plt Count MPV Neut # (Auto) Lymph # (Auto) [place] # (Auto) Eos # (Auto) Baso # (Auto) Absolute Nucleated RBC Nucleated RBC % Sodium Potassium Chloride Carbon Dioxide Anion Gap BUN Creatinine Estimated GFR (MDRD) Glucose Lactic Acid Calcium Total Bilirubin AST ALT Alkaline Phosphatase Total Protein Albumin Globulin Albumin/Globulin Ratio Lipase Urine Color DARK YELLOW Urine Clarity SL. CLOUDY Urine pH 7.5 Ur Specific [place] 1.015 Urine Protein 30 H Urine Glucose (UA) NEGATIVE Urine Ketones NEGATIVE Urine Occult Blood SMALL H Urine Nitrite POSITIVE H Urine Bilirubin NEGATIVE Urine Urobilinogen 1 (NORMAL) Ur Leukocyte Esterase SMALL H Urine RBC 6-10 H Urine WBC >25 H Ur Squamous Epith Cells RARE Squamous Urine Bacteria Moderate H Ur Microscopic Review INDICATED Urine Culture Comments INDICATED PD Medical Decision Making - ED course Complexity details: reviewed results, re-evaluated patient, considered differential, d/w patient, d/w family ED course: The patient overall did not appear toxic and his vital signs were normal including blood pressure, heart rate, and temperature. He was given a liter of IV fluid and worked up with CBC, ER abdominal panel, lactic acid level, urinalysis, and blood cultures, all of which were ordered and reviewed by me. The pt's work-up revealed a UTI and mildly elevated WBC count. He was started on abx for this. The pt was feeling much better on re-evaluation. We have discussed fever control at home, and the fact that blood cultures are still pending. We have discussed having a low threshold for return. Departure - Departure Disposition: 01 Home, Self Care Clinical Impression: Pyelonephritis Condition: Stable Instructions: ED UTI Pyelonephritis Male Prescriptions: levoFLOXacin [Levaquin] 500 mg PO QD #28 tablet Phenazopyridine HCl [Pyridium] 200 mg PO TID #6 tablet Comments: Your urinalysis is positive for infection. With the back pain and fever, as well as the strength of positivity of your urinalysis, we would consider this a kidney infection or "pyelonephritis". As such, you have been started on a broad-spectrum antibiotic in the emergency department. You will need to take this for the next 2 weeks to knock out the infection. Today, you have mild elevation in your white blood cell count, which is to be expected, but your sepsis markers are normal. Additionally, your vital signs have been very reassuring here in the emergency department. Please be sure you are getting plenty of water to drink. A prescription for your antibiotic, as well as for a medication to calm down the irritation in your bladder, has been electronically transmitted to the [facility] in [place] your request. Please pick the medications up today. Your next dose of antibiotics will not be due until tomorrow. There is a set of blood cultures that is pending at this time and preliminary results will come back tomorrow. If anything is positive on these preliminary results we will contact you at home. The antibiotic should take care of the infection, but if you feel that you are drastically or steadily worsening despite the antibiotics, please return to the emergency department for reevaluation. Forms: PCP List Discharge Date/Time: 11/21/22 12:38
[2022-11-21 09:40] LABS: BASOPHILS # (AUTO) 0.1 10^3/uL (0.0-0.1); BASOPHILS % (AUTO) 0.4 %; EOSINOPHILS % (AUTO) 0.3 %; HCT - HEMATOCRIT 42.8 % (42.0-52.0); HGB - HEMOGLOBIN 14.5 g/dL (14.0-18.0); LYMPHOCYTES # (AUTO) 1.3 10^3/uL (1.5-3.5); LYMPHOCYTES % (AUTO) 10.5 %; MEAN CORPUSCULAR HEMOGLOBIN 31.5 pg (27.0-31.0); MEAN CORPUSCULAR HGB CONC 33.9 g/dL (32.0-36.0); MEAN CORPUSCULAR VOLUME 92.8 fL (80.0-94.0); MEAN PLATELET VOLUME 8.8 fL (7.4-11.4); MONOCYTES # (AUTO) 1.4 10^3/uL (0.0-1.0); MONOCYTES % (AUTO) 10.8 %; NEUTROPHILS # (AUTO) 9.9 10^3/uL (1.5-6.6); NEUTROPHILS % (AUTO) 77.6 %; PLT - PLATELET COUNT 222 10^3/uL (130-450); RED BLOOD COUNT 4.61 10^6/uL (4.70-6.10); WHITE BLOOD COUNT 12.7 x10^3/uL (4.8-10.8)
[2022-11-21 09:55] LABS: ALBUMIN 4.1 g/dL (3.2-5.5); ALBUMIN/GLOBULIN RATIO 1.4 (1.0-2.2); CALCIUM 9.2 mg/dL (8.5-10.3); CREATININE 0.7 mg/dL (0.6-1.3)
[2022-11-21 11:02] LABS: BILIRUBIN,URINE NEGATIVE (NEGATIVE); GLUCOSE, URINE (UA) NEGATIVE (NEGATIVE); KETONES,URINE (UA) NEGATIVE (NEGATIVE); LEUKOCYTE ESTERASE, URINE SMALL (NEGATIVE); NITRITE,URINE POSITIVE (NEGATIVE); OCCULT BLOOD,URINE SMALL (NEGATIVE); PH,URINE 7.5 PH (5.0-7.5); PROTEIN,URINE 30 mg/dL (NEGATIVE); UROBILINOGEN,URINE 1 (NORMAL) E.U./dL (NORMAL)
[2022-11-21 11:04] LABS: CLARITY,URINE SL. CLOUDY (CLEAR)
[2022-11-21 11:15] LABS: BACTERIA,URINE Moderate /HPF (None Seen); SQUAMOUS EPITHELIAL CELL,UR RARE Squamous (<= Few); WBC,URINE >25 /HPF (0-3)
[2022-11-21] MEDS ORDERED: levoFLOXacin 250 MG TABLET PO STA (12:11)
[2022-11-21] MEDS ORDERED: ACETAMINOPHEN 325 MG TABLET PO STA (12:20)
[2022-11-21 12:22] VITALS: BP 116/69; O2SAT 100
== END 2022-11-21 12:38 | disposition home or self-care (01) ==
LOC: ED 08:54
DX: N12 Tubulo-interstitial nephritis, not specified as acute or chronic (principal)
CPT/HCPCS: 36415; 80053; 81001; 83605; 83690; 85025; 87040; 87077; 87086; 87181; 99283; 99284; A9270; 81003

== ENCOUNTER 2022-11-30 08:00 | Outpatient (CLI) | payer MEDICARE, BC ==
[2022-11-30 16:39] LABS: BILIRUBIN,URINE NEGATIVE (NEGATIVE); GLUCOSE, URINE (UA) NEGATIVE (NEGATIVE); KETONES,URINE (UA) TRACE mg/dL (NEGATIVE); LEUKOCYTE ESTERASE, URINE TRACE (NEGATIVE); NITRITE,URINE NEGATIVE (NEGATIVE); OCCULT BLOOD,URINE NEGATIVE (NEGATIVE); PROTEIN,URINE 30 mg/dL (NEGATIVE); UROBILINOGEN,URINE 4 E.U./dL (NORMAL)
[2022-11-30 16:46] LABS: CLARITY,URINE HAZY (CLEAR)
[2022-11-30 17:05] LABS: BACTERIA,URINE Rare /HPF (None Seen); RBC,URINE 0-5 /HPF (0-5); SQUAMOUS EPITHELIAL CELL,UR RARE Squamous (<= Few); WBC,URINE >25 /HPF (0-3)
== END 2022-11-30 23:59 | disposition home or self-care (01) ==
LOC: LAB 08:00
PROVIDERS: ATTEND Urology
DX: R39.11 Hesitancy of micturition (principal)
CPT/HCPCS: 81001; 87086

== ENCOUNTER 2023-02-20 15:35 | Outpatient (CLI) | payer MEDICARE, BC ==
[2023-02-20 18:00] LABS: BILIRUBIN,URINE NEGATIVE (NEGATIVE); GLUCOSE, URINE (UA) NEGATIVE (NEGATIVE); KETONES,URINE (UA) NEGATIVE (NEGATIVE); LEUKOCYTE ESTERASE, URINE NEGATIVE (NEGATIVE); NITRITE,URINE NEGATIVE (NEGATIVE); OCCULT BLOOD,URINE NEGATIVE (NEGATIVE); PH,URINE 6.5 PH (5.0-7.5); PROTEIN,URINE NEGATIVE (NEGATIVE); UROBILINOGEN,URINE 0.2 (NORMAL) E.U./dL (NORMAL)
[2023-02-20 18:06] LABS: BACTERIA,URINE Rare /HPF (None Seen); CLARITY,URINE CLEAR (CLEAR); RBC,URINE 0-5 /HPF (0-5); SQUAMOUS EPITHELIAL CELL,UR FEW Squamous (<= Few); WBC,URINE 0-3 /HPF (0-3)
== END 2023-02-20 15:36 | disposition home or self-care (01) ==
LOC: LAB.N 15:35
PROVIDERS: ATTEND Urology
DX: R39.9 Unspecified symptoms and signs involving the genitourinary system (principal)
CPT/HCPCS: 81001; 81003; 87086

== ENCOUNTER 2023-04-06 16:47 | Outpatient (CLI) | payer MEDICARE, BC ==
--- NOTE | 2023-04-07 09:06 | Ultrasound Report ---
PROCEDURE: Retroperitoneal INDICATIONS: ACUTE CYSTITIS TECHNIQUE: Real-time scanning was performed of the retroperitoneal organs, with image documentation. COMPARISON: None. FINDINGS: Kidneys: Kidneys are normal in size. Right kidney measures 10.3 cm long; left kidney measures 9.7 c m long. Right renal cortical thickness is 1.4 cm; left renal cortical thickness is 1.7 cm. No solid masses, hydronephrosis, or nephrolithiasis. Left renal simple cysts measuring up to 2.8 cm. Bladder: Pre-void bladder volume is 261 mL. Post-void residual is 94 mL. Pre-void images demonstra te no intraluminal masses or stones. On pre-void images, bilateral ureteral jets are noted with colo r Doppler interrogation. (Of note, ureteral jets may not be detectable in up to 25% of cases due to insufficient differences in specific gravity between ureteral and bladder urine). Miscellaneous: No free abdominal fluid. The prostate is enlarged. IMPRESSION: 1.Kidneys are normal in appearance without hydronephrosis or stone. 2.Prostate is enlarged. Postvoid residual volume of 94 mL, correlate for bladder outlet obstruction. Reviewed by: Hiram Brunson MD on 04/07/2023 9:05 AM PST Approved by: Hiram Brunson MD on 04/07/2023 9:05 AM PST Station ID: [id number]
== END 2023-04-06 16:48 | disposition home or self-care (01) ==
LOC: DI 16:47
PROVIDERS: ATTEND Urology
DX: N30.00 Acute cystitis without hematuria (principal); N40.1 Benign prostatic hyperplasia with lower urinary tract symptoms; R33.8 Other retention of urine

== ENCOUNTER 2023-10-10 18:07 | Outpatient (CLI) | payer MEDICARE, BC | END 2023-10-10 23:59 | disposition critical access hospital (66) | LOC: EMS 18:07 | DX: R50.9 Fever, unspecified (principal); R53.1 Weakness; R00.0 Tachycardia, unspecified | CPT/HCPCS: A0425; A0429 ==

== ENCOUNTER 2023-10-10 18:19 | Inpatient (IN) | payer MEDICARE, BC ==
--- NOTE | 2023-10-10 18:34 | ED Physician Documentation ---
History of Present Illness - Stated complaint Stated Complaint: GEN WEAKNESS - Chief complaint Chief Complaint: General - History obtained from History obtained from: Patient, Family, EMS - Additonal information Additional information: 83-year-old gentleman with history of UTI and sepsis with recurrent prostate issues developed shaking chills and fever yesterday with dysuria. He was seen this morning at [facility] and reportedly had a UTI. No rectal exam was done. He received an IV dose of antibiotics and was sent home but was offered admission. He became more weak with shaking chills after return home. He denies pain anywhere. PD PAST MEDICAL HISTORY - Past Medical History Past Medical History: Yes Cardiovascular: Hypertension, High cholesterol Respiratory: Asthma Neuro: None Endocrine/Autoimmune: Type 2 diabetes GI: None : Benign prostate hypertrophy HEENT: None Psych: None Musculoskeletal: None Derm: None - Past Surgical History Past Surgical History: Yes Ortho: Spine surgery HEENT: Cataracts - Present Medications Home Medications: Ambulatory Orders Medication Instructions Recorded Confirmed Aspirin 81 mg PO DAILY 06/18/17 10/10/23 Potassium Chloride [Micro-K] 10 mg PO DAILY 06/18/17 10/10/23 Tiotropium [place] [Spiriva 1 puffs PO DAILY 06/18/17 10/10/23 Respimat] Triamterene/Hydrochlorothiazid 1 tab PO DAILY 06/18/17 10/10/23 [Triamterene-Hctz 75-50 mg Tab] ALPRAZolam [Xanax] 0.5 mg PO DAILY 11/28/19 10/10/23 Albuterol Sulfate [Albuterol 8.5 gm IH DAILY PRN 11/28/19 10/10/23 Sulfate Hfa] Ciprofloxacin HCl 1 tab PO BID 10/10/23 10/10/23 Fluticasone/Umeclidin/Vilanter 1 inh INH DAILY 10/10/23 10/10/23 [Trelegy Ellipta 100-62.5-25] Pravastatin [Pravachol] 1 tab PO DAILY 10/10/23 10/10/23 metFORMIN [Glucophage] 1 tab PO DAILY 10/10/23 10/10/23 - Allergies Allergies/Adverse Reactions: Allergies Allergy/AdvReac Type Severity Reaction Status Date / Time No Known Drug Allergies Allergy Verified 10/10/23 18:31 - Social History Does the pt smoke?: No Smoking Status: Never smoker Does the pt drink ETOH?: No Does the pt have substance abuse?: No - Immunizations Immunizations are current?: Yes - POLST Patient has POLST: No PD ED PE NORMAL - Vitals Vital signs reviewed: Yes (He is febrile and tachycardic.) - General General: Alert and oriented X 3, Other (Appears mildly acutely ill) - Cardiac Cardiac: Other (Tachycardic but regular with out murmur, left bundle branch block on the monitor) - Respiratory Respiratory: No respiratory distress, Clear bilaterally - Abdomen Abdomen: Non tender - Rectal Rectal: Other (Nontender prostate) - Extremities Extremities: No edema - Neuro Neuro: Alert and oriented X 3 Results - Vitals Vitals: Vital Signs - 24 hr 10/10/23 10/10/23 10/10/23 18:23 19:30 19:48 Temperature 39.6 C H 37.1 C 37.1 C Heart Rate 118 H 93 Respiratory 16 20 Rate Blood Pressure 103/63 123/75 O2 Saturation 95 95 10/10/23 20:44 Temperature Heart Rate 92 Respiratory 20 Rate Blood Pressure 97/75 O2 Saturation 96 Oxygen O2 Source Room air - EKG (time done) 1852 EKG releavant findings:: EKG personally interpreted by author of this note. Relevant findings are: Rate: Rate (enter#) (104) Rhythm: Sinus tachycardia Intervals: LBBB Computer interpretation: Agree with computer - Labs Labs: Laboratory Tests 10/10/23 10/10/23 10/10/23 18:42 18:42 18:42 WBC 11.8 H RBC 4.50 L Hgb 13.8 L Hct 41.2 L MCV 91.6 MCH 30.7 MCHC 33.5 RDW 13.8 Plt Count 174 MPV 8.7 Neut # (Auto) 10.9 H Lymph # (Auto) 0.5 L [place] # (Auto) 0.4 Eos # (Auto) 0.0 Baso # (Auto) 0.0 Absolute Nucleated RBC 0.00 Nucleated RBC % 0.0 Sodium 137 Potassium 3.2 L Chloride 101 Carbon Dioxide 26 Anion Gap 10.0 BUN 14 Creatinine 0.8 Estimated GFR (MDRD) 93 Glucose 164 H Lactic Acid 2.3 H Calcium 9.2 Total Bilirubin 1.2 H AST 18 ALT 17 Alkaline Phosphatase 72 Total Protein 6.8 Albumin 3.9 Globulin 2.9 Albumin/Globulin Ratio 1.3 Urine Color Urine Clarity Urine pH Ur Specific [place] Urine Protein Urine Glucose (UA) Urine Ketones Urine Occult Blood Urine Nitrite Urine Bilirubin Urine Urobilinogen Ur Leukocyte Esterase Urine RBC Urine WBC Ur Squamous Epith Cells Urine Bacteria Urine Culture Comments 10/10/23 19:00 WBC RBC Hgb Hct MCV MCH MCHC RDW Plt Count MPV Neut # (Auto) Lymph # (Auto) [place] # (Auto) Eos # (Auto) Baso # (Auto) Absolute Nucleated RBC Nucleated RBC % Sodium Potassium Chloride Carbon Dioxide Anion Gap BUN Creatinine Estimated GFR (MDRD) Glucose Lactic Acid Calcium Total Bilirubin AST ALT Alkaline Phosphatase Total Protein Albumin Globulin Albumin/Globulin Ratio Urine Color DARK YELLOW Urine Clarity CLOUDY Urine pH 7.5 Ur Specific [place] 1.015 Urine Protein 30 H Urine Glucose (UA) 250 H Urine Ketones NEGATIVE Urine Occult Blood LARGE H Urine Nitrite NEGATIVE Urine Bilirubin NEGATIVE Urine Urobilinogen 2 H Ur Leukocyte Esterase SMALL H Urine RBC TNTC H Urine WBC >25 H Ur Squamous Epith Cells RARE Squamous Urine Bacteria Few Urine Culture Comments INDICATED PD Medical Decision Making - ED course ED course: He has a left bundle branch block on the monitor. This is old compared looking at old EKGs. He is tachycardic and febrile though. Certainly could be sepsis from a urinary source. He is not tender on prostate exam. Records from his [facility] this morning were received and reviewed. He had heart rates right around 100 generally, a white count of 11.1 with left shift, lactate of 2.0, procalcitonin of 0.05, CT scan of the abdomen pelvis was done demonstrating thickened bladder wall consistent with cystitis. 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 He also had a chest x-ray that was clear. Blood cultures are pending there. He was prescribed Cipro. tells me that he received an IV dose of antibiotics while in the department and looking at the records that was ceftriaxone. He is appropriate for admission but unfortunately no beds are available in the hospital so he will be boarding in the emergency department pending bed availability. Decision to admit was made at 7:10 PM. Departure - Departure Disposition: 66 [facility] DC/Xfer Clinical Impression: UTI (urinary tract infection) Qualifiers: Urinary tract infection type: site unspecified Hematuria presence: without hematuria Qualified Code(s): N39.0 - Urinary tract infection, site not specified Sepsis Qualifiers: Sepsis type: sepsis due to unspecified organism Sepsis acute organ dysfunction status: without acute organ dysfunction Qualified Code(s): A41.9 - Sepsis, unspe cified organism Condition: Serious Forms: PCP List
[2023-10-10 18:51] LABS: BASOPHILS % (AUTO) 0.2 %; HCT - HEMATOCRIT 41.2 % (42.0-52.0); HGB - HEMOGLOBIN 13.8 g/dL (14.0-18.0); LYMPHOCYTES # (AUTO) 0.5 10^3/uL (1.5-3.5); LYMPHOCYTES % (AUTO) 3.9 %; MEAN CORPUSCULAR HEMOGLOBIN 30.7 pg (27.0-31.0); MEAN CORPUSCULAR HGB CONC 33.5 g/dL (32.0-36.0); MEAN CORPUSCULAR VOLUME 91.6 fL (80.0-94.0); MEAN PLATELET VOLUME 8.7 fL (7.4-11.4); MONOCYTES # (AUTO) 0.4 10^3/uL (0.0-1.0); MONOCYTES % (AUTO) 3.3 %; NEUTROPHILS # (AUTO) 10.9 10^3/uL (1.5-6.6); NEUTROPHILS % (AUTO) 91.9 %; PLT - PLATELET COUNT 174 10^3/uL (130-450); RED CELL DISTRIBUTION WIDTH 13.8 % (12.0-15.0); WHITE BLOOD COUNT 11.8 x10^3/uL (4.8-10.8)
[2023-10-10] MEDS: ACETAMINOPHEN 500 MG TABLET PO STA (19:00)
[2023-10-10 19:03] LABS: LACTIC ACID, VENOUS 2.3 mmol/L (0.5-2.2)
[2023-10-10 19:04] LABS: ALBUMIN 3.9 g/dL (3.2-5.5); ALBUMIN/GLOBULIN RATIO 1.3 (1.0-2.2); BILIRUBIN,TOTAL 1.2 mg/dL (0.2-1.0); CALCIUM 9.2 mg/dL (8.5-10.3); CREATININE 0.8 mg/dL (0.6-1.3); POTASSIUM 3.2 mmol/L (3.5-4.5); TOTAL PROTEIN 6.8 g/dL (6.4-8.9)
[2023-10-10 19:11] LABS: BILIRUBIN,URINE NEGATIVE (NEGATIVE); CLARITY,URINE CLOUDY (CLEAR); GLUCOSE, URINE (UA) 250 mg/dL (NEGATIVE); KETONES,URINE (UA) NEGATIVE (NEGATIVE); LEUKOCYTE ESTERASE, URINE SMALL (NEGATIVE); NITRITE,URINE NEGATIVE (NEGATIVE); OCCULT BLOOD,URINE LARGE (NEGATIVE); PH,URINE 7.5 PH (5.0-7.5); PROTEIN,URINE 30 mg/dL (NEGATIVE); UROBILINOGEN,URINE 2 E.U./dL (NORMAL)
[2023-10-10] MEDS ORDERED: ONDANSETRON 4 MG/2 ML VIAL IVP PRN (19:20)
[2023-10-10] MEDS ORDERED: ACETAMINOPHEN 500 MG TABLET PO PRN (19:20)
[2023-10-10 19:23] LABS: BACTERIA,URINE Few /HPF (None Seen); RBC,URINE TNTC /HPF (0-5); SQUAMOUS EPITHELIAL CELL,UR RARE Squamous (<= Few); WBC,URINE >25 /HPF (0-3)
[2023-10-10] MEDS: POTASSIUM CHLOR 10 MEQ/100 ML 10 MEQ/100 ML BAG IV ONE (19:37)
[2023-10-10] MEDS: cefTRIAXone 1 GM VIAL IVP STA (19:38)
[2023-10-10] MEDS: SODIUM CHLORIDE 0.9% 1,000 ML IV STA ×2 (22:43→23:49)
[2023-10-10 22:45] LABS: LACTIC ACID, VENOUS 3.6 mmol/L (0.5-2.2)
[2023-10-11] MEDS: SODIUM CHLORIDE 0.9% 1,000 ML IV STA ×2 (00:26→01:37)
--- NOTE | 2023-10-11 01:49 | ED Physician Documentation ---
ED Addendum - Addendum Addendum: 10/11/23 Patient care assumed at shift change from Dr. Meraz. Patient is boarding in the emergency department awaiting available inpatient bed for urosepsis. A reflex repeat lactic resulted at 3.6 which is elevated from the prior lactic. He has not yet received much IV fluids so 30 cc/kg fluid bolus was ordered. Patient's blood pressures have been soft but MAP is greater than 65. He was seen at [facility] earlier today and reportedly had CT imaging at that time did not show an obstruction or stone. Repeat lactic is improved. Blood pressure has maintained with a MAP greater than 65. Patient care to be signed out at shift change to oncoming provider.
[2023-10-11 05:30] LABS: BASOPHILS # (AUTO) 0.1 10^3/uL (0.0-0.1); BASOPHILS % (AUTO) 0.4 %; EOSINOPHILS % (AUTO) 0.1 %; HCT - HEMATOCRIT 38.9 % (42.0-52.0); HGB - HEMOGLOBIN 12.7 g/dL (14.0-18.0); LYMPHOCYTES # (AUTO) 1.3 10^3/uL (1.5-3.5); LYMPHOCYTES % (AUTO) 8.4 %; MEAN CORPUSCULAR HEMOGLOBIN 31.1 pg (27.0-31.0); MEAN CORPUSCULAR HGB CONC 32.6 g/dL (32.0-36.0); MEAN CORPUSCULAR VOLUME 95.1 fL (80.0-94.0); MONOCYTES # (AUTO) 1.1 10^3/uL (0.0-1.0); MONOCYTES % (AUTO) 7.6 %; NEUTROPHILS # (AUTO) 12.4 10^3/uL (1.5-6.6); PLT - PLATELET COUNT 163 10^3/uL (130-450); RED BLOOD COUNT 4.09 10^6/uL (4.70-6.10); RED CELL DISTRIBUTION WIDTH 14.3 % (12.0-15.0); WHITE BLOOD COUNT 14.9 x10^3/uL (4.8-10.8)
[2023-10-11 05:48] LABS: CALCIUM 8.9 mg/dL (8.5-10.3); CREATININE 0.7 mg/dL (0.6-1.3); POTASSIUM 3.7 mmol/L (3.5-4.5)
[2023-10-11] MEDS: PANTOPRAZOLE 40 MG TABLET PO SCH (06:52)
[2023-10-11] MEDS: ENOXAPARIN 40 MG/0.4 ML SYRINGE SUBQ SCH (08:47)
[2023-10-11] MEDS: cefTRIAXone 1 GM in SODIUM CHLORIDE 0.9% MINIBAG 100 ML IV SCH (08:47)
--- NOTE | 2023-10-11 15:01 | ED Physician Documentation ---
ED Addendum - Addendum Addendum: 10/11/23 14:56 BCx x 2 from [place] yesterday NGTD. Still some soft BP (90s/70s). Had chills earlier today. Feeling v weak. I am told a bed on the [facility] will be available soon (~1hr), so will call hospitalist for admit.
[2023-10-11] MEDS ORDERED: SODIUM CHLORIDE FLUSH 0.9% 10 ML SYRINGE IVP PRN (15:33)
--- NOTE | 2023-10-11 15:42 | HISTORY & PHYSICAL EXAMINATION ---
Chief Complaint - Chief Complaint Chief Complaint: Fever and shaking chills History of Present Illness - Admitted From Admitted From:: Emergency room - History Obtained From Records Reviewed: Yes History obtained from: Patient - History of Present Illness HPI Comment/Other: The patient is a very pleasant 83-year-old gentleman who presented to the emergency room with fever and shaking chills and was found to have evidence of a urinary tract infection. He was seen at [facility] emergency room and it was recommended that the patient be admitted. However he was feeling better and went home. After he got home he significantly worsened. It sounds like he was having rigors at home and he presented to the emergency room for further evaluation. Workup in the emergency room revealed white blood cell count of 11.8, hemoglobin of 13.8 and a platelet level of 174. Sodium level was 137, potassium 3.2, creatinine 0.8 with a BUN of 14. Glucose was elevated at 164. Bilirubin was elevated at 1.2 but the rest of his liver panel was normal. He did have a lactic acidosis with an initial lactate of 2.3 that ángel to 3.6 and has now normalized at 1.7 today. Unfortunately there were no beds available in the hospital and he was boarded in the emergency room overnight. Today when I saw him he states that he is still having shaking chills at times. He says the room that he is and is extremely cold and he feels like that is cont ributing. He says that he feels weak and just overall feels sick. He said no chest pain or heart palpitations. No nausea vomiting or diarrhea. He is voiding without difficulty History - Past Medical History Cardiovascular: reports: Hypertension, High cholesterol Respiratory: reports: Asthma Neuro: reports: None Endocrine/Autoimmune: reports: Type 2 diabetes GI: reports: None : reports: Benign prostate hypertrophy HEENT: reports: None Psych: reports: None Musculoskeletal: reports: None Derm: reports: None MRSA Hx?: No - Past Surgical History Ortho: reports: Spine surgery HEENT: reports: Cataracts - Family & Social History Living arrangement: At home Living Situation: With spouse/s.o. - Substance History Use: Uses substance without health or social issues: NONE Abuse: Recurrent use of substance despite neg consequences: NONE Dependence: Experiences withdrawal or developed tolerances: NONE - POLST Patient has POLST: Yes POLST Status: Full Code Meds/Allgy - Home Medications Home Medications: Ambulatory Orders Medication Instructions Recorded Confirmed Aspirin 81 mg PO DAILY 06/18/17 08/07/20 Potassium Chloride [Micro-K] 10 mg PO DAILY 06/18/17 08/07/20 Tiotropium [place] [Spiriva 1 puffs PO DAILY 06/18/17 08/07/20 Respimat] ALPRAZolam [Xanax] 0.5 mg PO BID PRN 11/28/19 08/07/20 Albuterol Sulfate [Albuterol 8.5 gm IH DAILY PRN 11/28/19 08/07/20 Sulfate Hfa] Ciprofloxacin HCl 1 tab PO BID 10/10/23 Fluticasone/Umeclidin/Vilanter 1 inh INH DAILY 10/10/23 [Trelegy Ellipta 100-62.5-25] Pravastatin [Pravachol] 10 mg PO DAILY 10/10/23 metFORMIN [Glucophage] 1 tab PO DAILY 10/10/23 Omeprazole 20 mg PO DAILY 10/11/23 Tamsulosin [Flomax] 0.4 mg PO BID 10/11/23 Triamterene/Hdyrochlor 37.5/ 1 cap PO DAILY 10/11/23 [Dyazide] - Allergies Allergies/Adverse Reactions: Allergies Allergy/AdvReac Type Severity Reaction Status Date / Time No Known Drug Allergies Allergy Verified 10/10/23 18:31 Review of Systems - Constitutional Constitutional: reports: Fatigue, Fever, Chills, Malaise, Weakness, Poor appetite - Cardiovascular Cariovascular: denies: Palpitations, Chest pain - Respiratory Respiratory: denies: Cough, Sputum production, Wheezing - Gastrointestinal Gastrointestinal: denies: Abdominal pain, Abdominal distention, Diarrhea - Genitourinary Genitourinary: reports: Dysuria, Frequency, Urgency, Hematuria - Musculoskeletal Musculoskeletal: denies: Muscle pain, Back pain - Integumentary Integumentary: denies: Rash, Pruritis - Neurological Neurological: reports: General weakness - All Other Systems All Other Systems: reports: Reviewed and negative Prior Level of Functionality: The patient normally ambulates with a cane Exam - Vital Signs Reviewed Vital Signs: Yes Vital Signs: Vital Signs x48h Temp Pulse Resp BP Pulse Ox 10/11/23 14:00 96 20 117/69 97 10/11/23 13:00 85 10 L 97/79 97 10/11/23 12:00 85 12 114/71 100 10/11/23 11:00 37.3 C 88 11 L 103/64 100 10/11/23 10:00 85 11 L 108/70 98 10/11/23 09:00 85 12 111/64 97 10/11/23 08:00 88 16 101/63 96 - Physical Exam General Appearance: positive: Other Eyes Bilateral: positive: Normal inspection ENT: positive: ENT inspection nml Neck: positive: Thyroid nml Respiratory: positive: Chest non-tender, No respiratory distress, Breath sounds nml Cardiovascular: positive: Regular rate & rhythm, No murmur, No gallop. negative: Friction rub Abdomen: positive: Non-tender, No organomegaly, Nml bowel sounds Skin: positive: Color nml, No rash, Warm, Dry Extremities: positive: Non-tender, Full ROM Neurologic/Psychiatric: positive: Oriented x3, CN's nml (2-12) Sepsis Event Note (H) - Evaluation Current Stage of Sepsis: Sepsis Possible source of Sepsis: positive: GI tract/intra-abdominal - Sepsis Criteria Sepsis Criteria: Recorded Temperature greater than 38.3C or Less than 36C, Recorded Heart Rate greater than 90 bpm, WBC count greater than 12,000 or less than 4000, Metabolic: lactate > 2 mmol/L Conclusion/Plan - Problem List (1) Sepsis due to urinary tract infection Conclusion/Plan: The patient has had evidence of sepsis that was present on admission due to a urinary tract infection. The patient has been hypotensive, tachycardic with lactic acidosis. The patient has a sofa score of 2. MAP< 70 ( 1 SOFA point). Bilirubin 1.2 ( 1 SOFA point) He will continue IV ceftriaxone however we will increase his dose to 2 g daily (2) Lactic acidosis Conclusion/Plan: Secondary to sepsis. Resolved with treatment (3) Diabetes Conclusion/Plan: He will be placed on sliding scale coverage. His metformin will be held (4) Hypertension Conclusion/Plan: His med rec has not been reviewed by pharmacy. Will add his medications once this is complete. Patient's blood pressure is on the low side of normal and I do not believe he needs any medications at this time for his blood pressure (5) Hyperlipidemia Conclusion/Plan: Again the patient's med rec has not been completed by pharmacy. (6) Asthma Conclusion/Plan: As above. I will make sure the patient has as needed DuoNebs available. (7) BPH (benign prostatic hyperplasia) Conclusion/Plan: Will start his home medications as soon as his med rec has been reviewed by pharmacy (8) GERD (gastroesophageal reflux disease) Conclusion/Plan: As above (9) Hypokalemia Conclusion/Plan: Repleted and resolved - Lab Results Fish Bones: 10/11/23 05:26 10/11/23 05:26 - Other Other Results/Comments: Overall the patient will be fully admitted to the hospital. I fully expect his hospitalization to span greater than 2 midnights. He is already spent greater than 24 hours in the emergency room. This was due to lack of beds on the medical floor. Time spent: 45 minutes
[2023-10-11] MEDS ORDERED: IPRATROPIUM/ALBUTEROL 3 ML NEB INH PRN (15:51)
--- NOTE | 2023-10-11 17:10 | PHARMACY PROGRESS NOTE ---
- Best Possible Medication History Admit Date and Time: 10/11/23 1533 Processed by: Pharmacy Medications reviewed in ED?: Yes Medication History completed: Yes Patient Interview: Completed Secondary Source(s): Written medication list (NO LONGER USING ALBUTEROL, CIPROFLOXCAIN, SPIRIVA, LIDOCAINE PATCH, OMEPRAZOLE. DOSES CORRECTED FOR XANAX, POTASSIUM, TAMSULOSIN.), Insurance records As the person ultimately responsible for medication therapy, providers are able to order a medication from an existing home medication list in [facility] via the "Reconcile Routine" prior to Confirmation of that medication by youth support worker. Such practice is discouraged except when the physician, in their clinical judgment, deems that a medical need exists for a medication without regard to previous use.
[2023-10-11] MEDS: INSULIN LISPRO 300 UNIT/3 ML PEN SUBQ SCH (17:16)
[2023-10-11] MEDS: ACETAMINOPHEN 500 MG TABLET PO SCH (18:31)
[2023-10-11] MEDS: SODIUM CHLORIDE FLUSH 0.9% 10 ML SYRINGE IVP SCH (18:32)
[2023-10-11] MEDS: BUDESONIDE 0.5 MG/2 ML NEB INH SCH (19:11)
[2023-10-11] MEDS: IPRATROPIUM 0.2 MG/ML NEB INH SCH (19:11)
[2023-10-11] MEDS: FORMOTEROL FUMARATE NEB 20 MCG/2 ML INH SCH (19:11)
[2023-10-11 23:30] LABS: ESTIMATED AVERAGE GLUCOSE 108 mg/dL (70-100); HEMOGLOBIN A1c% 5.4 % (4.27-6.07)
[2023-10-12 05:43] LABS: BASOPHILS % (AUTO) 0.3 %; EOSINOPHILS # (AUTO) 0.1 10^3/uL (0.0-0.7); HCT - HEMATOCRIT 34.4 % (42.0-52.0); HGB - HEMOGLOBIN 11.4 g/dL (14.0-18.0); LYMPHOCYTES # (AUTO) 1.7 10^3/uL (1.5-3.5); LYMPHOCYTES % (AUTO) 17.6 %; MEAN CORPUSCULAR HGB CONC 33.1 g/dL (32.0-36.0); MEAN CORPUSCULAR VOLUME 93.5 fL (80.0-94.0); MEAN PLATELET VOLUME 9.4 fL (7.4-11.4); MONOCYTES # (AUTO) 0.8 10^3/uL (0.0-1.0); MONOCYTES % (AUTO) 8.6 %; NEUTROPHILS % (AUTO) 71.6 %; PLT - PLATELET COUNT 144 10^3/uL (130-450); RED BLOOD COUNT 3.68 10^6/uL (4.70-6.10); RED CELL DISTRIBUTION WIDTH 14.3 % (12.0-15.0); WHITE BLOOD COUNT 9.8 x10^3/uL (4.8-10.8)
[2023-10-12 05:59] LABS: CALCIUM 8.8 mg/dL (8.5-10.3); CREATININE 0.6 mg/dL (0.6-1.3); POTASSIUM 3.1 mmol/L (3.5-4.5)
[2023-10-12] MEDS: ASPIRIN CHEW 81 MG TABLET PO SCH (08:49)
[2023-10-12] MEDS: POTASSIUM CHLORIDE 20 MEQ/15 ML UDC PO STA (08:49)
[2023-10-12] MEDS: TRIAMT/HCTZ 37.5 MG/25 MG CAPSULE PO SCH (08:49)
[2023-10-12] MEDS: POTASSIUM CHLORIDE 10 MEQ CAPSULE PO SCH ×2 (08:49→20:53)
[2023-10-12] MEDS: TAMSULOSIN 0.4 MG CAPSULE PO SCH (08:49)
[2023-10-12] MEDS: PRAVASTATIN 10 MG TABLET PO SCH (08:50)
[2023-10-12] MEDS: cefTRIAXone 2 GM in SODIUM CHLORIDE 0.9% MINIBAG 100 ML IV SCH (08:50)
[2023-10-12] MEDS ORDERED: FLUTICASONE INH SCH (09:00)
[2023-10-12] MEDS ORDERED: UMECLIDIN INH SCH (09:00)
[2023-10-12] MEDS ORDERED: VILANTER INH SCH (09:00)
[2023-10-12] MEDS ORDERED: [UNRECOGNIZED DRUG - OTHER] INH SCH (09:00)
--- NOTE | 2023-10-12 10:13 | PROVIDER PROGRESS NOTE ---
<Promise Oconnor - Last Filed: 10/12/23 10:59> Subjective - Prog Note Date Prog Note Date: 10/12/23 Prog Note Time: 10:10 - Subjective Pt reports feeling: Improved Subjective: Patient no longer has a fever or reports shaking. States he has been having night sweats since midnight; no other complaints. He denies urinary symptoms - frequency, dysuria, hematuria. Current Medications - Current Medications Current Medications: Medications Budesonide (Budesonide 0.5 Mg/2 Ml Neb) 0.5 mg INH RTBID [facility] Last Admin: 10/12/23 07:42 Dose: 0.5 mg Acetaminophen (Acetaminophen 500 Mg Tablet) 1,000 mg PO Q6H PRN PRN Reason: Mild Pain Or Fever>38c(100.4f) Albuterol/Ipratropium (Ipratropium/Albuterol 3 Ml Neb) 3 ml INH Q4HR PRN PRN Reason: Wheezing Alprazolam (Alprazolam 0.25 Mg Tablet) 0.75 mg PO DAILY PRN PRN Reason: Anxiety Aspirin (Aspirin Chew 81 Mg Tablet) 81 mg PO DAILY [facility] Last Admin: 10/12/23 08:49 Dose: 81 mg Ceftriaxone Sodium 2 gm/ (Sodium Chloride) 100 mls @ 200 mls/hr IV DAILY [facility] Last Admin: 10/12/23 08:50 Dose: 200 mls/hr Enoxaparin Sodium (Enoxaparin 40 Mg/0.4 Ml Syringe) 40 mg SUBQ DAILY [facility] Last Admin: 10/11/23 08:47 Dose: 40 mg Formoterol Fumarate (Formoterol Fumarate Neb 20 Mcg/2 Ml) 20 mcg INH RTBID [facility] Last Admin: 10/12/23 07:42 Dose: 20 mcg Insulin Human Lispro (Insulin Lispro 300 Unit/3 Ml Pen) 1 - 5 unit SUBQ 0800,1200,1700,2100 [facility]; Protocol Last Admin: 10/12/23 08:49 Dose: Not Given Ipratropium Pax (Ipratropium 0.2 Mg/Ml Neb) 0.5 mg INH RTQID [facility] Last Admin: 10/12/23 07:42 Dose: 0.5 mg Ondansetron HCl (Ondansetron 4 Mg/2 Ml Vial) 4 mg IVP Q6HR PRN PRN Reason: Nausea / Vomiting Pantoprazole Sodium (Pantoprazole 40 Mg Tablet) 40 mg PO QDAC [facility] Last Admin: 10/12/23 06:11 Dose: 40 mg Potassium Chloride (Potassium Chloride 10 Meq Capsule) 10 meq PO DAILY [facility] Last Admin: 10/12/23 08:49 Dose: 10 meq Pravastatin Sodium (Pravastatin 10 Mg Tablet) 10 mg PO DAILY [facility] Last Admin: 10/12/23 08:50 Dose: 10 mg Tamsulosin HCl (Tamsulosin 0.4 Mg Capsule) 0.4 mg PO DAILY [facility] Last Admin: 10/12/23 08:49 Dose: 0.4 mg Triamterene/Hydrochlorothiazide (Triamt/Hctz 37.5 Mg/25 Mg Capsule) 1 cap PO DAILY [facility] Last Admin: 10/12/23 08:49 Dose: 1 cap Objective - Vital Signs/Intake & Output Reviewed Vital Signs: Yes Vital Signs: Vital Signs x48h Temp Pulse Pulse Resp BP Pulse Ox 10/12/23 07:47 36.4 C L 65 18 119/69 93 10/12/23 07:45 98 16 Intake & Output: Intake & Output 10/09/23 10/10/23 10/11/23 10/12/23 23:59 23:59 23:59 23:59 Intake Total 1100 3536 820 Balance 1100 3536 820 - Objective General Appearance: positive: No acute distress, Alert Eyes Bilateral: positive: Normal inspection, PERRL ENT: positive: ENT inspection nml Neck: positive: Nml inspection Respiratory: positive: Chest non-tender, No respiratory distress, Breath sounds nml Cardiovascular: positive: Regular rate & rhythm Abdomen: positive: Non-tender Back: positive: Nml inspection Skin: positive: Color nml Extremities: positive: Non-tender Neurologic/Psychiatric: positive: Oriented x3, Motor nml, Sensation nml, Mood/ affect nml - Lab Results Fish Bones: 10/12/23 04:54 10/12/23 04:54 Other Labs: Lab Results x24hrs 10/12/23 10/12/23 10/12/23 Range/Units 07:41 04:54 04:54 WBC 9.8 (4.8-10.8) x10^3/uL RBC 3.68 L (4.70-6.10) 10^6/uL Hgb 11.4 L (14.0-18.0) g/dL Hct 34.4 L (42.0-52.0) % MCV 93.5 (80.0-94.0) fL MCH 31.0 (27.0-31.0) pg MCHC 33.1 (32.0-36.0) g/dL RDW 14.3 (12.0-15.0) % Plt Count 144 (130-450) 10^3/uL MPV 9.4 (7.4-11.4) fL Neut # (Auto) 7.0 H (1.5-6.6) 10^3/uL Lymph # (Auto) 1.7 (1.5-3.5) 10^3/uL [place] # (Auto) 0.8 (0.0-1.0) 10^3/uL Eos # (Auto) 0.1 (0.0-0.7) 10^3/uL Baso # (Auto) 0.0 (0.0-0.1) 10^3/uL Absolute Nucleated RBC 0.00 x10^3/uL Nucleated RBC % 0.0 /100WBC Sodium 138 (135-145) mmol/L Potassium 3.1 L (3.5-4.5) mmol/L Chloride 107 (101-111) mmol/L Carbon Dioxide 26 (21-32) mmol/L Anion Gap 5.0 L (6-13) BUN 12 (6-20) mg/dL Creatinine 0.6 (0.6-1.3) mg/dL Estimated GFR (MDRD) 129 (>89) Glucose 98 (74-104) mg/dL POC Whole Bld Glucose 96 (70 - 100) mg/dL Estimat Average Glucose (70-100) mg/dL Hemoglobin A1c % (4.27-6.07) % Calcium 8.8 (8.5-10.3) mg/dL 10/11/23 10/11/23 10/11/23 Range/Units 20:55 16:41 05:26 WBC (4.8-10.8) x10^3/uL RBC (4.70-6.10) 10^6/uL Hgb (14.0-18.0) g/dL Hct (42.0-52.0) % MCV (80.0-94.0) fL MCH (27.0-31.0) pg MCHC (32.0-36.0) g/dL RDW (12.0-15.0) % Plt Count (130-450) 10^3/uL MPV (7.4-11.4) fL Neut # (Auto) (1.5-6.6) 10^3/uL Lymph # (Auto) (1.5-3.5) 10^3/uL [place] # (Auto) (0.0-1.0) 10^3/uL Eos # (Auto) (0.0-0.7) 10^3/uL Baso # (Auto) (0.0-0.1) 10^3/uL Absolute Nucleated RBC x10^3/uL Nucleated RBC % /100WBC Sodium (135-145) mmol/L Potassium (3.5-4.5) mmol/L Chloride (101-111) mmol/L Carbon Dioxide (21-32) mmol/L Anion Gap (6-13) BUN (6-20) mg/dL Creatinine (0.6-1.3) mg/dL Estimated GFR (MDRD) (>89) Glucose (74-104) mg/dL POC Whole Bld Glucose 135 H 107 H (70 - 100) mg/dL Estimat Average Glucose 108 H (70-100) mg/dL Hemoglobin A1c % 5.4 (4.27-6.07) % Calcium (8.5-10.3) mg/dL ABX Reporting Has patient been on IV antibiotics over the past 48 hours?: Yes Sepsis Event Note (H) - Evaluation Current Stage of Sepsis: Resolved Possible source of Sepsis: positive: Genitourinary Assessment/Plan - Problem List (1) Sepsis due to urinary tract infection Impression: Overall improved - no fevers, shaking, dizziness. He does report night sweats x 8hours. Patient denies urinary symptoms of frequency, urgency, dysuria, hematuria. He is currently on day two of IV ceftriaxone, dose increased today to 2g. Blood culture and urine culture from 10/10/23 (6PM) did not detect growth; patient was given a dose of ceftriaxone the morning prior. Sepsis resolved. Vital signs within normal limits. Patient does not meet SIRS criteria; qSOFA score 0. In our ED the patient's records from [facility] ED visit 10/10/23 (morning) were reviewed and "CT scan of the abdomen pelvis was done demonstrating thickened bladder wall consistent with cystitis. 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 He also had a chest x-ray that was clear. Blood cultures are pending there." Pending CT scan, urine culture, blood culture from [facility] medical records for further review. Increase ambulation today with PT. (2) Lactic acidosis Impression: Secondary to sepsis. Resolved with treatment (3) Asthma Impression: Continuing home medications here in the hospital. Controlled, no signs of asthma exacerbation or respiratory distress. (4) Hypertension Impression: Blood pressure is on the lower side of normal at 110s/60s. Will hold medication at this time. (5) Diabetes Impression: He will be placed on sliding scale coverage. Holding his metformin. (6) Hypokalemia Impression: Potassium continues to be low at 3.1mmol/L. Continue replacement with potassium chloride 10mg daily. Will continue to monitor. (7) BPH (benign prostatic hyperplasia) Impression: Continue with tamsulosin 0.4mg daily. (8) GERD (gastroesophageal reflux disease) Impression: Controlled with pantoprazole 40mg. (9) Hyperlipidemia Impression: Continue with pravastatin 10mg daily. <Cristy Shields - Last Filed: 10/12/23 11:32> Objective - Vital Signs/Intake & Output Vital Signs: Vital Signs x48h Temp Pulse Pulse Resp BP Pulse Ox 10/12/23 07:47 36.4 C L 65 18 119/69 93 10/12/23 07:45 98 16 Intake & Output: Intake & Output 10/09/23 10/10/23 10/11/23 10/12/23 23:59 23:59 23:59 23:59 Intake Total 1100 3536 820 Balance 1100 3536 820 - Lab Results Fish Bones: 10/12/23 04:54 10/12/23 04:54 Other Labs: Lab Results x24hrs 10/12/23 10/12/23 10/12/23 Range/Units 11:14 07:41 04:54 WBC (4.8-10.8) x10^3/uL RBC (4.70-6.10) 10^6/uL Hgb (14.0-18.0) g/dL Hct (42.0-52.0) % MCV (80.0-94.0) fL MCH (27.0-31.0) pg MCHC (32.0-36.0) g/dL RDW (12.0-15.0) % Plt Count (130-450) 10^3/uL MPV (7.4-11.4) fL Neut # (Auto) (1.5-6.6) 10^3/uL Lymph # (Auto) (1.5-3.5) 10^3/uL [place] # (Auto) (0.0-1.0) 10^3/uL Eos # (Auto) (0.0-0.7) 10^3/uL Baso # (Auto) (0.0-0.1) 10^3/uL Absolute Nucleated RBC x10^3/uL Nucleated RBC % /100WBC Sodium 138 (135-145) mmol/L Potassium 3.1 L (3.5-4.5) mmol/L Chloride 107 (101-111) mmol/L Carbon Dioxide 26 (21-32) mmol/L Anion Gap 5.0 L (6-13) BUN 12 (6-20) mg/dL Creatinine 0.6 (0.6-1.3) mg/dL Estimated GFR (MDRD) 129 (>89) Glucose 98 (74-104) mg/dL POC Whole Bld Glucose 124 H 96 (70 - 100) mg/dL Estimat Average Glucose (70-100) mg/dL Hemoglobin A1c % (4.27-6.07) % Calcium 8.8 (8.5-10.3) mg/dL 10/12/23 10/11/23 10/11/23 Range/Units 04:54 20:55 16:41 WBC 9.8 (4.8-10.8) x10^3/uL RBC 3.68 L (4.70-6.10) 10^6/uL Hgb 11.4 L (14.0-18.0) g/dL Hct 34.4 L (42.0-52.0) % MCV 93.5 (80.0-94.0) fL MCH 31.0 (27.0-31.0) pg MCHC 33.1 (32.0-36.0) g/dL RDW 14.3 (12.0-15.0) % Plt Count 144 (130-450) 10^3/uL MPV 9.4 (7.4-11.4) fL Neut # (Auto) 7.0 H (1.5-6.6) 10^3/uL Lymph # (Auto) 1.7 (1.5-3.5) 10^3/uL [place] # (Auto) 0.8 (0.0-1.0) 10^3/uL Eos # (Auto) 0.1 (0.0-0.7) 10^3/uL Baso # (Auto) 0.0 (0.0-0.1) 10^3/uL Absolute Nucleated RBC 0.00 x10^3/uL Nucleated RBC % 0.0 /100WBC Sodium (135-145) mmol/L Potassium (3.5-4.5) mmol/L Chloride (101-111) mmol/L Carbon Dioxide (21-32) mmol/L Anion Gap (6-13) BUN (6-20) mg/dL Creatinine (0.6-1.3) mg/dL Estimated GFR (MDRD) (>89) Glucose (74-104) mg/dL POC Whole Bld Glucose 135 H 107 H (70 - 100) mg/dL Estimat Average Glucose (70-100) mg/dL Hemoglobin A1c % (4.27-6.07) % Calcium (8.5-10.3) mg/dL 10/11/23 Range/Units 05:26 WBC (4.8-10.8) x10^3/uL RBC (4.70-6.10) 10^6/uL Hgb (14.0-18.0) g/dL Hct (42.0-52.0) % MCV (80.0-94.0) fL MCH (27.0-31.0) pg MCHC (32.0-36.0) g/dL RDW (12.0-15.0) % Plt Count (130-450) 10^3/uL MPV (7.4-11.4) fL Neut # (Auto) (1.5-6.6) 10^3/uL Lymph # (Auto) (1.5-3.5) 10^3/uL [place] # (Auto) (0.0-1.0) 10^3/uL Eos # (Auto) (0.0-0.7) 10^3/uL Baso # (Auto) (0.0-0.1) 10^3/uL Absolute Nucleated RBC x10^3/uL Nucleated RBC % /100WBC Sodium (135-145) mmol/L Potassium (3.5-4.5) mmol/L Chloride (101-111) mmol/L Carbon Dioxide (21-32) mmol/L Anion Gap (6-13) BUN (6-20) mg/dL Creatinine (0.6-1.3) mg/dL Estimated GFR (MDRD) (>89) Glucose (74-104) mg/dL POC Whole Bld Glucose (70 - 100) mg/dL Estimat Average Glucose 108 H (70-100) mg/dL Hemoglobin A1c % 5.4 (4.27-6.07) % Calcium (8.5-10.3) mg/dL Assessment/Plan - Problem List (9) Hypokalemia Impression: Time spent: 35 minutes I have independently seen and examined this patient and am in agreement with the above assessment and plan. I have discussed this case with the PA student.
[2023-10-12] MEDS: ALPRAZolam 0.25 MG TABLET PO PRN (20:52)
[2023-10-13 06:27] LABS: BASOPHILS % (AUTO) 0.6 %; EOSINOPHILS # (AUTO) 0.1 10^3/uL (0.0-0.7); EOSINOPHILS % (AUTO) 1.8 %; HCT - HEMATOCRIT 36.7 % (42.0-52.0); HGB - HEMOGLOBIN 12.3 g/dL (14.0-18.0); LYMPHOCYTES # (AUTO) 0.9 10^3/uL (1.5-3.5); LYMPHOCYTES % (AUTO) 18.1 %; MEAN CORPUSCULAR HEMOGLOBIN 31.7 pg (27.0-31.0); MEAN CORPUSCULAR HGB CONC 33.5 g/dL (32.0-36.0); MEAN CORPUSCULAR VOLUME 94.6 fL (80.0-94.0); MEAN PLATELET VOLUME 9.2 fL (7.4-11.4); MONOCYTES # (AUTO) 0.6 10^3/uL (0.0-1.0); MONOCYTES % (AUTO) 11.6 %; NEUTROPHILS # (AUTO) 3.4 10^3/uL (1.5-6.6); NEUTROPHILS % (AUTO) 67.5 %; PLT - PLATELET COUNT 176 10^3/uL (130-450); RED BLOOD COUNT 3.88 10^6/uL (4.70-6.10); RED CELL DISTRIBUTION WIDTH 14.3 % (12.0-15.0); WHITE BLOOD COUNT 5.1 x10^3/uL (4.8-10.8)
[2023-10-13 06:37] LABS: CALCIUM 8.9 mg/dL (8.5-10.3); CREATININE 0.6 mg/dL (0.6-1.3); POTASSIUM 3.9 mmol/L (3.5-4.5)
--- NOTE | 2023-10-13 07:58 | Discharge Plan ---
Discharge Plan Problem Reviewed?: Yes Disposition: Home, Self Care Condition: Stable Prescriptions: Ciprofloxacin HCl 1 tablet PO BID 7 Days #14 tablet Diet: Diabetic Activity Restrictions: No Restrictions Shower Restrictions: No Weight Bearing: Full Weight Health Concerns: You were admitted with a urinary tract infection. You have improved and are doing much better. You should complete the course of antibiotics and follow up with your car designer next week Assessment: 1. Sepsis due to urinary tract infection The patient had evidence of sepsis that was present on admission. At the time of admission the patient was hypotensive, tachycardic with a lactic acidosis. Sofa score was 2. He was placed on 2 g of IV ceftriaxone and over the next couple of days his sepsis symptoms resolved. He will be discharged to complete a course of therapy with 7 days of p.o. Cipro 2. Lactic acidosis Secondary to sepsis. Resolved 3. Diabetes He will resume his home regimen 4. Hypertension He will resume his home regimen 5. Hyperlipidemia As above 6. Asthma He will resume his home bronchodilators. No evidence of exacerbation during this hospitalization 7. BPH the patient had no issues with urinary retention. Continue his home dose of Flomax 8. GERD Continue home regimen 9. Hypokalemia Repleted and resolved 10. Abdominal aortic aneurysm This was an incidental finding noted on CT imaging. Aneurysm measures about 3 cm. This will need outpatient surveillance with yearly CT scans No Smoking: If you smoke, Please STOP! Call for help. Follow-up with: CARSON MCRAE MD [Primary Care Provider] -
--- NOTE | 2023-10-13 08:11 | DISCHARGE SUMMARY ---
Discharge Summary Admit Date: 10/11/23 Discharge Date: 10/13/23 Discharging Provider: Henrry Shields PA-C Primary Care Provider: Dr Terrance Jack Code Status: Attempt Resuscitation Condition at Discharge: Stable Discharge Disposition: 01 Home, Self Care - DIAGNOSES Discharge Diagnoses with Status of Each Condition: 1. Sepsis due to urinary tract infection The patient had evidence of sepsis that was present on admission. At the time of admission the patient was hypotensive, tachycardic with a lactic acidosis. Sofa score was 2. He was placed on 2 g of IV ceftriaxone and over the next couple of days his sepsis symptoms resolved. He will be discharged to complete a course of therapy with 7 days of p.o. Cipro 2. Lactic acidosis Secondary to sepsis. Resolved 3. Diabetes He will resume his home regimen 4. Hypertension He will resume his home regimen 5. Hyperlipidemia As above 6. Asthma He will resume his home bronchodilators. No evidence of exacerbation during this hospitalization 7. BPH The patient had no issues with urinary retention. Continue his home dose of Flomax 8. GERD Continue home regimen 9. Hypokalemia Repleted and resolved 10. Abdominal aortic aneurysm This was an incidental finding noted on CT imaging. Aneurysm measures about 3 cm. This will need outpatient surveillance with yearly CT scans - HPI History of Present Illness: The patient is a very pleasant 83-year-old gentleman who presented to the emergency room with fever and shaking chills and was found to have evidence of a urinary tract infection. He was seen at [facility] emergency room and it was recommended that the patient be admitted. However he was feeling better and went home. After he got home he significantly worsened. It sounds like he was having rigors at home and he presented to the emergency room for further evaluation. Workup in the emergency room revealed white blood cell count of 11.8, hemoglobin of 13.8 and a platelet level of 174. Sodium level was 137, potassium 3.2, creatinine 0.8 with a BUN of 14. Glucose was elevated at 164. Bilirubin was elevated at 1.2 but the rest of his liver panel was normal. He did have a lactic acidosis with an initial lactate of 2.3 that ángel to 3.6 and has now normalized at 1.7 today. Unfortunately there were no beds available in the hospital and he was boarded in the emergency room overnight. Today when I saw him he states that he is still having shaking chills at times. He says the room that he is and is extremely cold and he feels like that is contributing. He says that he feels weak and just overall feels sick. He said no chest pain or heart palpitations. No nausea vomiting or diarrhea. He is voiding without difficulty - HOSPITAL COURSE Hospital Course: The patient was admitted to the hospital. He was started on 2 g of IV ceftr iaxone. Urine culture was inconclusive however we were able to obtain records from [facility]. Urine culture at that facility grew a Klebsiella that was basically pansensitive. Over the course of the hospitalization his sepsis symptoms improved. Yesterday he was able to ambulate around the unit without any assistive devices. At this point maximum hospital benefit has been reached. The patient will be discharged today in stable condition. Of note an incidental finding on CT scan of the abdomen and pelvis at [facility] was a 3 cm abdominal aortic aneurysm that we will need outpatient surveillance. - ALLERGIES Allergies/Adverse Reactions: Allergies Allergy/AdvReac Type Severity Reaction Status Date / Time No Known Drug Allergies Allergy Verified 10/10/23 18:31 - MEDICATIONS Home Medications: Ambulatory Orders Medication Instructions Recorded Confirmed Aspirin 81 mg PO DAILY 06/18/17 10/11/23 ALPRAZolam [Xanax] 0.75 mg PO DAILY PRN 11/28/19 10/11/23 Fluticasone/Umeclidin/Vilanter 1 inh INH DAILY 10/10/23 10/11/23 [Trelegy Ellipta 100-62.5-25] Pravastatin [Pravachol] 10 mg PO DAILY 10/10/23 10/11/23 metFORMIN [Glucophage] 500 mg PO DAILY 10/10/23 10/11/23 Potassium Chloride 10 meq PO DAILY 10/11/23 10/11/23 Tamsulosin [Flomax] 0.4 mg PO DAILY 10/11/23 10/11/23 Triamterene/Hdyrochlor 37.5/25 1 cap PO DAILY 10/11/23 10/11/23 [Dyazide] Ciprofloxacin HCl 1 tablet PO BID 7 Days #14 tablet 10/13/23 - PHYSICAL EXAM AT DISCHARGE General Appearance: positive: No acute distress, Alert Eyes Bilateral: positive: Normal inspection ENT: positive: ENT inspection nml Neck: positive: Nml inspection Respiratory: positive: Chest non-tender, No respiratory distress, Breath sounds nml Cardiovascular: positive: Regular rate & rhythm, No murmur, No gallop. negative: Friction rub Abdomen: positive: Non-tender, No organomegaly, Nml bowel sounds Skin: positive: Color nml, No rash, Warm Extremities: positive: Non-tender, Full ROM, Nml appearance Neurologic/Psychiatric: positive: Oriented x3, CN's nml (2-12) - LABS Result Diagrams: 10/13/23 05:25 10/13/23 05:25 - SEPSIS Current Stage of Sepsis: Resolved Possible source of Sepsis: Genitourinary Sepsis Criteria: WBC count greater than 12,000 or less than 4000, Metabolic: lactate > 2 mmol/L - FOLLOW UP Follow Up: Thepatient will follow up with Dr Terrance Jack in 1 week - TIME SPENT Time Spent in Discharge (Minutes): 45
[2023-10-13 08:22] VITALS: BP 121/72; O2SAT 94
== END 2023-10-13 10:15 | disposition home or self-care (01) | DRG 872 ==
LOC: EDUNIT# → EDBD → ED 18:19 → MS2 10-11 15:33
PROVIDERS: ADMIT Physician Assistant; ATTEND Physician Assistant
DX: A41.9 Sepsis, unspecified organism (principal); N39.0 Urinary tract infection, site not specified; I44.7 Left bundle-branch block, unspecified; E87.20 Acidosis, unspecified; I95.9 Hypotension, unspecified; I10 Essential (primary) hypertension; E11.9 Type 2 diabetes mellitus without complications; N40.0 Benign prostatic hyperplasia without lower urinary tract symptoms; K21.9 Gastro-esophageal reflux disease without esophagitis; E87.6 Hypokalemia; I71.40 Abdominal aortic aneurysm, without rupture, unspecified; E78.00 Pure hypercholesterolemia, unspecified; J45.909 Unspecified asthma, uncomplicated; Z79.82 Long term (current) use of aspirin; Z79.84 Long term (current) use of oral hypoglycemic drugs; Z79.899 Other long term (current) drug therapy
CPT/HCPCS: 36415; 80048; 80053; 81001; 83036; 83605; 85025; 87040; 87086; 93005; 94640; 96361; 96365; 96372; 96376; 97116; 97161; 97165; 99284; 99285; A9270; J1650; J7626

== ENCOUNTER 2024-06-21 17:22 | Inpatient (IN) ==
[2024-06-21] MEDS: SODIUM CHLORIDE 0.9% IV STA (17:57)
[2024-06-21 18:10] LABS: BASOPHILS % (AUTO) 0.3 %; EOSINOPHILS # (AUTO) 0.1 10^3/uL (0.0-0.7); EOSINOPHILS % (AUTO) 0.8 %; HCT - HEMATOCRIT 42.8 % (42.0-52.0); HGB - HEMOGLOBIN 14.6 g/dL (14.0-18.0); LYMPHOCYTES # (AUTO) 0.8 10^3/uL (1.5-3.5); LYMPHOCYTES % (AUTO) 6.7 %; MEAN CORPUSCULAR HGB CONC 34.1 g/dL (32.0-36.0); MEAN CORPUSCULAR VOLUME 90.9 fL (80.0-94.0); MEAN PLATELET VOLUME 8.9 fL (7.4-11.4); MONOCYTES # (AUTO) 0.8 10^3/uL (0.0-1.0); MONOCYTES % (AUTO) 6.7 %; NEUTROPHILS # (AUTO) 10.2 10^3/uL (1.5-6.6); NEUTROPHILS % (AUTO) 85.2 %; PLT - PLATELET COUNT 258 10^3/uL (130-450); RED BLOOD COUNT 4.71 10^6/uL (4.70-6.10); RED CELL DISTRIBUTION WIDTH 12.6 % (12.0-15.0)
[2024-06-21 18:19] LABS: BILIRUBIN,URINE NEGATIVE (NEGATIVE); GLUCOSE, URINE (UA) NEGATIVE (NEGATIVE); KETONES,URINE (UA) TRACE mg/dL (NEGATIVE); LEUKOCYTE ESTERASE, URINE MODERATE (NEGATIVE); NITRITE,URINE NEGATIVE (NEGATIVE); OCCULT BLOOD,URINE LARGE (NEGATIVE); PH,URINE 6.5 PH (5.0-7.5); PROTEIN,URINE NEGATIVE (NEGATIVE); UROBILINOGEN,URINE 2 E.U./dL (NORMAL)
[2024-06-21 18:20] LABS: CLARITY,URINE CLOUDY (CLEAR)
[2024-06-21 18:22] LABS: ALBUMIN/GLOBULIN RATIO 1.4 (1.0-2.2); CALCIUM 9.1 mg/dL (8.5-10.3); CREATININE 0.8 mg/dL (0.6-1.3); POTASSIUM 3.7 mmol/L (3.5-4.5); TOTAL PROTEIN 6.9 g/dL (6.4-8.9)
--- NOTE | 2024-06-21 18:25 | XRAY Report ---
PROCEDURE: XR Chest 1V INDICATIONS: Sepsis TECHNIQUE: One view of the chest was acquired. COMPARISON: Chest radiographs 08/07/2020. FINDINGS: Surgical changes and devices: None. Lungs and pleura: No pleural effusions or pneumothorax. No consolidation. Mediastinum: Mediastinal contours appear normal. Heart size is normal. Bones and chest wall: No suspicious bony lesions. Overlying soft tissues appear unremarkable. IMPRESSION: No acute cardiopulmonary process. Reviewed by: Celestino Mosquera MD on 06/21/2024 6:24 PM PST Approved by: Celestino Mosquera MD on 06/21/2024 6:24 PM PST Station ID: [id number]
[2024-06-21] MEDS: ACETAMINOPHEN 500 MG TABLET PO STA (18:27)
[2024-06-21 18:28] LABS: BACTERIA,URINE Moderate /HPF (None Seen); SQUAMOUS EPITHELIAL CELL,UR NONE SEEN (<= Few)
--- NOTE | 2024-06-21 18:51 | HISTORY & PHYSICAL EXAMINATION ---
Chief Complaint Chief Complaint Chief Complaint: confusion, fever and chills History of Present Illness Admitted From Admitted From:: home History Obtained From Records Reviewed: urology notes, admit in September 2023 History obtained from: patient and History of Present Illness HPI Comment/Other: 83-year-old gentleman who presented to the emergency department with fever and chills and confusion this afternoon. He has a history of recurrent urinary tract infections. He has been in close contact with his urologist, Dr. Kingston, Dr. Kingston called in a prescription for Bactrim this afternoon. He was able to take 1 dose at home but then started to feel worse and came to the emergency department. He has a past medical history of type 2 diabetes on metformin, BPH, hypertension, hypercholesterolemia. He lives at home with his and is independent in most of his functions. Meds/Allgy Home Medications Ambulatory Orders Medication Instructions Recorded Confirmed aspirin 81 mg chewable tablet 81 mg PO DAILY 06/18/17 06/03/24 alprazolam 0.5 mg tablet (Xanax) 0.75 mg PO DAILY PRN Anxiety 11/28/19 06/03/24 metformin 500 mg tablet 500 mg PO DAILY 10/10/23 06/03/24 pravastatin 10 mg tablet 10 mg PO DAILY 10/10/23 06/03/24 Potassium Chloride 10 meq PO DAILY 10/11/23 06/03/24 triamterene 37.5 1 cap PO DAILY 10/11/23 06/03/24 mg-hydrochlorothiazide 25 mg capsule vibegron 75 mg tablet (Gemtesa) 75 mg PO QDAY #30 tabs 04/04/24 06/03/24 cephalexin 500 mg capsule 500 mg PO QID 7 days #28 caps 06/03/24 phenazopyridine 100 mg tablet 100 mg PO TID PRN pain #14 tabs 06/03/24 (Pyridium) sulfamethoxazole 800 1 tab PO BID #10 tabs 06/21/24 mg-trimethoprim 160 mg tablet Allergies Allergies Allergy/AdvReac Type Severity Reaction Status Date / Time No Known Drug Allergies Allergy Verified 06/21/24 17:32 PFSH Active Problems All Active Problems (Updated 06/21/24 @ 19:20 by NOHEMY Asencio) Sepsis (Acute) Hematuria (Acute) Acute UTI (Acute) Frequent urination (Acute) Medical History Medical History (Updated 06/21/24 @ 19:20 by NOHEMY Asencio) Diabetes Problem List clean-up per request of Phys. EHR [facility] Hyperlipidemia Problem List clean-up per request of Phys. EHR [facility] Social History Social History Smoking Status: Former smoker Do you dip or chew tobacco?: No Do you vape?: No Patient requests smoking cessation consult: No Initiate information on smoking cessation: No Living arrangement: At home Living Condition: With spouse/s.o. Relationship: Level: Independent Home Mobility Equipment: Cane Do you feel safe in your home environment?: Yes Suffered physical, verbal, emotional, or financial abuse?: No History of Abuse: No ETOH Use: Frequency: Daily POLST Patient has POLST: Yes POLST Status: Full Code Review of Systems Status of ROS: 10 or more systems reviewed and unremarkable except as noted in history and below Constitutional Reports: Fatigue, Fever, Chills, Malaise and Weakness Eyes Denies: Vision loss Ears, nose, mouth, and throat Denies: Change in hearing Cardiovascular Denies: Irregular heart rate, chest pain, palpitations, edema, swelling of feet/ankles or Syncope Respiratory Denies: Cough Gastrointestinal Reports: Poor appetite; Denies: Abdominal pain, Abdominal distention, Nausea, Vomiting, Change in bowel habits, Painful bowel movements or Change in stool character Genitourinary Reports: Painful urination, Urinary frequency, Nocturia and Blood in urine; Denies: Flank pain, Incontinence or Testicular pain Musculoskeletal Denies: Back pain Integumentary/Breast Denies: Rash Neurological Denies: Headache Endocrine Reports: Fatigue Prior Level of Functionality: Lives with . does not use assistive devices. Exam Constitutional appears ill, having rigors HENMT normocephalic and oral mucous membranes normal Eyes conjunctivae normal and no scleral icterus Neck/C-Spine trachea midline Lymph no lymphadenopathy noted Chest inspection of chest normal Respiratory breath sounds equal bilaterally, normal respiratory effort and clear to auscultation bilaterally Cardiovascular tachycardic Gastrointestinal abdomen normal to inspection and abdomen soft to palpation Extremities normal to inspection and normal to palpation Neurology no focal motor deficit noted and GCS 15 Psychiatry mental status grossly normal and oriented x3 Skin skin color normal Sepsis Event Note (H) Evaluation Current Stage of Sepsis: Sepsis Possible source of Sepsis: positive Genitourinary Sepsis Criteria Sepsis Criteria: Recorded Heart Rate greater than 90 bpm and Recorded Respiratory Rate greater than 20 Conclusion/Plan Problem List (1) Sepsis: Plan: Fever, Tmax 38.3, tachycardia and confusion indicating sepsis syndrome. Patient is symptomatic with painful urination and has a history of recurrent urinary tract infections. He was treated in the emergency department with sepsis dosing of IV fluids. His chest x-ray showed no acute cardiopulmonary process. He does not have any other source of infection on physical exam. He has been given initial doses of vancomycin and cefepime in the emergency department. I will continue these antibiotics overnight and likely de-escalate in the morning. Discussed with attending provider in the emergency department Amrik Lopez NP and decision was made to admit the patient for his sepsis with likely origin being his urinary tract. (2) Acute UTI: Plan: History of recurrent UTIs. Has been symptomatic for just 1 day. He had a urinary tract infection less than 3 weeks ago that was treated in our emergency department with Keflex. He is actively engaged with his urologist who is planning eventual TURP procedure. No need for urological consultation at this time. Dr. Kingston is aware that the patient is admitted to our service. (3) Hyperlipidemia: Plan: On pravastatin at home. Hold overnight. (4) Hypertension: Plan: Takes triamterene/hydrochlorothiazide at home. In the setting of sepsis we will hold blood pressure medications and consider resumption in the morning after pharmacy med rec is complete. (5) Diabetes: Plan: Takes metformin at home. Blood glucose on admission chemistries is 139. I will hold metformin in the setting of acute sepsis. I will order blood sugar checks and low-dose sliding scale insulin. Will check hemoglobin A1c with a.m. labs. Plan I have spent 76 minutes in the care of this patient today. This includes time [id number], review and ordering of diagnostic imaging and laboratory studies and consultation with other providers.. Monitoring the patient's signs symptoms, evaluation of medication effectiveness and patient's response to treatment. Lab Results Lab results reviewed: Yes 06/21/24 17:55 06/21/24 17:55 Diagnostic Imaging Results Diagnostic Imaging Results: positive Final report reviewed Diagnostic Imaging Results Comments: Chest x-ray: Negative Core Measures Anticipated LOS I expect patient to be DC'd or transferred within 96 hours.: Yes Issues Hospital Issues and Management Plan: Sepsis secondary to urinary tract infection. Will provide supportive care IV antibiotics and monitoring of vital signs. DVT/VTE - Prophylaxis VTE/DVT Device ordered at admit?: Yes VTE/DVT Prophylaxis med ordered at admit?: Yes
--- NOTE | 2024-06-21 18:51 | ED Physician Documentation ---
PD HPI FEVER Stated complaint Stated Complaint: UTI Chief complaint Chief Complaint: General Additional information Additional information: 83-year-old male with complex past medical history Presents emergency department for concerns of sepsis. Patient was seen here recently at [facility] emergency department on 06/03 he was given a prescription of Keflex for UTI symptoms and hematuria with clots and there was a period of time where he started to significantly improve was afebrile yesterday started to have more generalized malaise and overall feeling ill he called his about 2 hours ago to let him know that he was starting to feel like he was spiking a fever and within 2 hours he went from 96-100 with rigors. He has been seen at [facility], here by multiple different urologist for ongoing recurrent prostatitis, UTIs. He has had history of green laser surgery as well as a TURP for his enlarged prostate but reports they have never been able to get a complete resolution as to why he continues to have this recurrent sepsis caused by his suspected prostate or bladder. Meds/Allgy Home Medications Ambulatory Orders Medication Instructions Recorded Confirmed aspirin 81 mg chewable tablet 81 mg PO DAILY 06/18/17 06/03/24 alprazolam 0.5 mg tablet (Xanax) 0.75 mg PO DAILY PRN Anxiety 11/28/19 06/03/24 metformin 500 mg tablet 500 mg PO DAILY 10/10/23 06/03/24 pravastatin 10 mg tablet 10 mg PO DAILY 10/10/23 06/03/24 Potassium Chloride 10 meq PO DAILY 10/11/23 06/03/24 triamterene 37.5 1 cap PO DAILY 10/11/23 06/03/24 mg-hydrochlorothiazide 25 mg capsule vibegron 75 mg tablet (Gemtesa) 75 mg PO QDAY #30 tabs 04/04/24 06/03/24 cephalexin 500 mg capsule 500 mg PO QID 7 days #28 caps 06/03/24 phenazopyridine 100 mg tablet 100 mg PO TID PRN pain #14 tabs 06/03/24 (Pyridium) sulfamethoxazole 800 1 tab PO BID #10 tabs 06/21/24 mg-trimethoprim 160 mg tablet Allergies Allergies Allergy/AdvReac Type Severity Reaction Status Date / Time No Known Drug Allergies Allergy Verified 06/21/24 17:32 PFSH Active Problems All Active Problems (Updated 06/21/24 @ 18:28 by Rhett Cat MD) Sepsis (Acute) Hematuria (Acute) Acute UTI (Acute) Frequent urination (Acute) Social History Social History Smoking Status: Former smoker Do you dip or chew tobacco?: No Do you vape?: No Patient requests smoking cessation consult: No Initiate information on smoking cessation: No Living arrangement: At home Living Condition: With spouse/s.o. Relationship: Level: Independent Home Mobility Equipment: Cane Do you feel safe in your home environment?: Yes Suffered physical, verbal, emotional, or financial abuse?: No History of Abuse: No ETOH Use: Frequency: Daily POLST Patient has POLST: Yes POLST Status: Full Code Exam Constitutional abnormal general appearance, no apparent distress, average body habitus, limitations noted (altered mental status) and level of alertness abnormal (lethargic) ill appearing HENMT normocephalic Chest inspection of chest normal Respiratory breath sounds equal bilaterally and normal respiratory effort Cardiovascular normal heart rate noted Gastrointestinal abdomen normal to inspection Extremities normal to inspection Psychiatry mental status abnormal (somnolent) Skin skin color normal Results Vitals Vitals: Vital Signs - 24 hr 06/21/24 17:26 06/21/24 17:37 06/21/24 17:47 Temperature 38.3 C H Temperature Source Temporal Artery Scan Pulse Rate 95 91 Respiratory Rate 18 22 Blood Pressure 130/50 L 112/70 O2 Saturation 100 97 O2 Source Room air Room air Pain Intensity 0 0 0 06/21/24 18:02 06/21/24 18:15 06/21/24 18:27 Temperature Temperature Source Pulse Rate 94 99 Respiratory Rate 22 24 Blood Pressure 139/61 H 141/66 H O2 Saturation 100 100 O2 Source Room air Room air Pain Intensity 0 0 0 06/21/24 18:30 Temperature Temperature Source Pulse Rate 99 Respiratory Rate 24 Blood Pressure 144/61 H O2 Saturation 100 O2 Source Room air Pain Intensity 0 Oxygen O2 Source Room air Labs Labs: Laboratory Tests 06/21/24 06/21/24 17:55 18:05 WBC 12.0 H RBC 4.71 Hgb 14.6 Hct 42.8 MCV 90.9 MCH 31.0 MCHC 34.1 RDW 12.6 Plt Count 258 MPV 8.9 Neut # (Auto) 10.2 H Lymph # (Auto) 0.8 L Alexander # (Auto) 0.8 Eos # (Auto) 0.1 Baso # (Auto) 0.0 Absolute Nucleated RBC 0.00 Nucleated RBC % 0.0 Sodium 135 Potassium 3.7 Chloride 96 L Carbon Dioxide 29 Anion Gap 10.0 BUN 10 Creatinine 0.8 Estimated GFR (MDRD) 93 Glucose 139 H Lactic Acid 1.9 Calcium 9.1 Total Bilirubin 1.0 AST 20 ALT 17 Alkaline Phosphatase 75 Total Protein 6.9 Albumin 4.0 Globulin 2.9 Albumin/Globulin Ratio 1.4 Urine Color YELLOW Urine Clarity CLOUDY Urine pH 6.5 Ur Specific [place] 1.015 Urine Protein NEGATIVE Urine Glucose (UA) NEGATIVE Urine Ketones TRACE Urine Occult Blood LARGE H Urine Nitrite NEGATIVE Urine Bilirubin NEGATIVE Urine Urobilinogen 2 H Ur Leukocyte Esterase MODERATE H Urine RBC 6-10 H Urine WBC 6-10 H Ur Squamous Epith Cells NONE SEEN Urine Bacteria Moderate H Urine Culture Comments INDICATED Rads (name of study) Chest x-ray: Relevant Findings:: Prelim report reviewed and EMP independent interpretation of test PD Medical Decision Making ED course Complexity details: reviewed old records, reviewed results and d/w patient ED course: 83-year-old male with complex past medical history with prior multiple prostate issues presents emergency department and what appears to be severe sepsis. Source is most likely prostate versus bladder. Labs reveal mild leukocytosis, WBC 12.0 patient does have rigors and fever when he first got here he is also given 1000 g of Tylenol for this. No other significant lab abnormalities urine is cloudy with large amount of hematuria, leukocytes and WBCs. 2 sets of blood cultures were collected prior to initiating antibiotics patient was started on vancomycin and cefepime within 1 hour of sepsis protocol initiation. He was given IV fluids to help with this as well. Patient's can be admitted for sepsis further hospitalization and workup. Discharge Plan Discharge Patient Disposition: 66 [facility] DC/Xfer Condition: Serious Clinical Impression: Acute UTI, Sepsis Prescriptions: No Action sulfamethoxazole-trimethoprim 800-160 mg tablet 1 tab PO BID Qty: 10 0RF aspirin 81 MG tablet,chewable 81 mg PO DAILY alprazolam [Xanax] 0.5 MG tablet 0.75 mg PO DAILY PRN (Reason: Anxiety) metformin 500 MG tablet 500 mg PO DAILY pravastatin 10 MG tablet 10 mg PO DAILY triamterene-hydrochlorothiazid 1 CAP capsule 1 cap PO DAILY Potassium Chloride 10 MEQ Capsule.Er 10 meq PO DAILY Patient Comments: take 1 tablet by mouth once daily cephalexin 500 mg capsule 500 mg PO QID 7 Days Qty: 28 0RF phenazopyridine [Pyridium] 100 mg tablet 100 mg PO TID PRN (Reason: pain) Qty: 14 0RF Gemtesa 75 mg tablet 75 mg PO QDAY Qty: 30 2RF Print Language: Romansh
[2024-06-21] MEDS: CEFEPIME 2 GM in SODIUM CHLORIDE 0.9% MINIBAG 100 ML IV STA (18:53)
[2024-06-21] MEDS: VANCOMYCIN INJ 1 GM, VANCOMYCIN INJ 500 MG in SODIUM CHLORIDE 0.9% 500 ML IV ONE (19:22)
[2024-06-21] MEDS ORDERED: HYDROmorphone 0.5 MG/0.5 ML SYRINGE IVP PRN (19:42)
[2024-06-21] MEDS ORDERED: ONDANSETRON 4 MG/2 ML VIAL IVP PRN (19:42)
[2024-06-21] MEDS ORDERED: ALPRAZolam 0.25 MG TABLET PO PRN (19:42)
[2024-06-21] MEDS ORDERED: SODIUM CHLORIDE FLUSH 0.9% 10 ML SYRINGE IVP PRN (19:42)
[2024-06-21] MEDS ORDERED: ACETAMINOPHEN 325 MG TABLET PO PRN (19:42)
--- NOTE | 2024-06-21 19:55 | PREOP HISTORY & PHYSICAL ---
Surgical History & Physical Chief Complaint/HPI Chief Complaint: fever/rigors hematuria History of Present Illness: Marcin is a pleasant 83yo M well known to me for multiple urological issues. In brief, he has had repeated septic episodes over the past few years, likely urinary source. He has also had multiple TURP procedures, two in the last 5 years at [facility]SH. He has had CT scans and multiple negative cystoscopies. Today he contacted my office with gross hematuria, I was in the OR and so had him drop off a urine sample and sent it for a urine culture. I started him on bactrim. However, he then felt worse as the day went on, eventually feeling very weak with fevers and chills. His then called 911 and had him taken to the ER. In the ER, he states he has had dysuria, fever and chills. He has poor appetite. He feels like he is emptying well but has frequent urination His urine was inspected at bedside and showed no gross hematuria. His urinalysis is concerning for infection, he has a mild leukocytosis He has been started on cefepime and vancomycin and is being admitted to the hospital Home Meds and Allergies Active Medications Generic Name Dose Route Start Last Admin Trade Name Freq PRN Reason Stop Dose Admin Acetaminophen 650 mg 06/21/24 19:42 Acetaminophen 325 Mg Tablet PO Q4HR PRN Pain 1 to 4, or Fever Alprazolam 0.75 mg 06/21/24 19:42 Alprazolam 0.25 Mg Tablet PO DAILY PRN Anxiety Heparin Sodium (Porcine) 5,000 unit 06/21/24 21:00 Heparin 5,000 Unit/Ml Vial SUBQ BID GARRY Hydromorphone HCl 0.5 mg 06/21/24 19:42 Hydromorphone 0.5 Mg/0.5 Ml Syringe IVP Q2H PRN Pain 8 to 10 Vancomycin HCl 1.25 gm/ Sodium 250 mls @ 167 mls/hr 06/22/24 07:00 Chloride IV Q12H GARRY Vancomycin HCl 1 gm/ 500 mls @ 250 mls/hr 06/21/24 19:00 06/21/24 19:22 Vancomycin HCl 500 mg/ Sodium IV 06/21/24 20:59 250 mls/hr Chloride ONCE ONE Administration Cefepime HCl 1 gm/ Sodium 100 mls @ 200 mls/hr 06/22/24 03:00 Chloride IV Q8H [facility] Non-Formulary Medication 75 mg 06/21/24 19:42 Vibegron [Gemtesa] PO QDAY [facility] Ondansetron HCl 4 mg 06/21/24 19:42 Ondansetron 4 Mg/2 Ml Vial IVP Q6HR PRN Nausea / Vomiting Potassium Chloride 10 meq 06/22/24 08:00 Potassium Chloride 10 Meq Capsule PO DAILYWM [facility] Pravastatin Sodium 10 mg 06/22/24 09:00 Pravastatin 10 Mg Tablet PO DAILY GARRY Sodium Chloride 10 ml 06/21/24 19:42 Sodium Chloride Flush 0.9% 10 Ml Syringe IVP PRN PRN NEEDED PER PROVIDER ORDERS Sodium Chloride 10 ml 06/22/24 01:00 Sodium Chloride Flush 0.9% 10 Ml Syringe IVP 0100,0900,1700 [facility] Triamterene/Hydrochlorothiazide 1 cap 06/22/24 09:00 Triamt/Hctz 37.5 Mg/25 Mg Capsule PO DAILY [facility] Vancomycin HCl 1 each 06/21/24 19:42 Vancomycin: Pharmacy To Dose [facility] .ONCE PRN PER PHARMACY aspirin 81 mg chewable tablet 81 mg PO DAILY 06/18/17 alprazolam 0.5 mg tablet (Xanax) 0.75 mg PO DAILY PRN Anxiety 11/28/19 metformin 500 mg tablet 500 mg PO DAILY 10/10/23 pravastatin 10 mg tablet 10 mg PO DAILY 10/10/23 Potassium Chloride 10 meq PO DAILY 10/11/23 triamterene 37.5 mg-hydrochlorothiazide 25 mg capsule 1 cap PO DAILY 10/11/23 vibegron 75 mg tablet (Gemtesa) 75 mg PO QDAY #30 tabs 04/04/24 cephalexin 500 mg capsule 500 mg PO QID 7 days #28 caps 06/03/24 phenazopyridine 100 mg tablet (Pyridium) 100 mg PO TID PRN pain #14 tabs 06/03/24 sulfamethoxazole 800 mg-trimethoprim 160 mg tablet 1 tab PO BID #10 tabs 06/21/24 Allergies Allergy/AdvReac Type Severity Reaction Status Date / Time No Known Drug Allergies Allergy Verified 06/21/24 17:32 Vital Signs O2 Saturation: 98 Patient Review Patient Review Pertinent Tests Reviewed [facility] Medical History Medical History (Updated 06/21/24 @ 19:20 by NOHEMY Asencio) Diabetes Problem List clean-up per request of Phys. EHR [facility] Hyperlipidemia Problem List clean-up per request of Phys. EHR [facility] Social History Social History Smoking Status: Former smoker Do you dip or chew tobacco?: No Do you vape?: No Patient requests smoking cessation consult: No Initiate information on smoking cessation: No Living arrangement: At home Living Condition: With spouse/s.o. Relationship: Level: Independent Home Mobility Equipment: Cane Do you feel safe in your home environment?: Yes Suffered physical, verbal, emotional, or financial abuse?: No History of Abuse: No ETOH Use: Frequency: Daily POLST Patient has POLST: Yes POLST Status: Full Code Exam Exam NAD abdomen soft, mild TTP suprapubically Assessment & Plan Assessment & Plan Assessment & Plan: 83yo M with long hx of recurrent gross hematuria, and UTIs leading sepsis, now with similar issues. 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 -agree with admission to medicine and broad spectrum antibiotics -follow urine and blood cultures -please obtain one PVR to ensure emptying adequately (ie <200cc) -ok to eat -ensure on bowel regimen -no abdominal imaging required at this point, but can consider further imaging if no significant improvement, or worsening within 48 hours -urology will follow
[2024-06-21] MEDS: HEPARIN 5,000 UNIT/ML VIAL SUBQ SCH (22:05)
[2024-06-22] MEDS: CEFEPIME 1 GM in SODIUM CHLORIDE 0.9% MINIBAG 100 ML IV SCH (03:14)
[2024-06-22] MEDS: SODIUM CHLORIDE FLUSH 0.9% 10 ML SYRINGE IVP SCH (03:15)
[2024-06-22 06:07] LABS: BASOPHILS # (AUTO) 0.1 10^3/uL (0.0-0.1); BASOPHILS % (AUTO) 0.4 %; EOSINOPHILS # (AUTO) 0.1 10^3/uL (0.0-0.7); EOSINOPHILS % (AUTO) 0.4 %; HCT - HEMATOCRIT 38.5 % (42.0-52.0); LYMPHOCYTES # (AUTO) 1.6 10^3/uL (1.5-3.5); LYMPHOCYTES % (AUTO) 11.1 %; MEAN CORPUSCULAR HGB CONC 33.8 g/dL (32.0-36.0); MEAN CORPUSCULAR VOLUME 91.9 fL (80.0-94.0); MEAN PLATELET VOLUME 9.1 fL (7.4-11.4); MONOCYTES # (AUTO) 1.5 10^3/uL (0.0-1.0); MONOCYTES % (AUTO) 10.4 %; NEUTROPHILS # (AUTO) 10.9 10^3/uL (1.5-6.6); PLT - PLATELET COUNT 212 10^3/uL (130-450); RED BLOOD COUNT 4.19 10^6/uL (4.70-6.10); RED CELL DISTRIBUTION WIDTH 12.7 % (12.0-15.0); WHITE BLOOD COUNT 14.1 x10^3/uL (4.8-10.8)
[2024-06-22 06:08] LABS: CALCIUM 8.2 mg/dL (8.5-10.3); CREATININE 0.7 mg/dL (0.6-1.3); POTASSIUM 3.3 mmol/L (3.5-4.5)
[2024-06-22] MEDS: VANCOMYCIN INJ 1.25 GM in SODIUM CHLORIDE 0.9% 250 ML IV SCH (06:45)
--- NOTE | 2024-06-22 07:23 | PROVIDER PROGRESS NOTE ---
Subjective Prog Note Date Prog Note Date: 06/22/24 Prog Note Time: 07:20 Subjective Pt reports feeling: No change Subjective: patient sleeping, appears comfortable Current Medications Current Medications Current Medications: Current Medications Generic Name Dose Route Start Last Admin Trade Name Freq PRN Reason Stop Dose Admin Acetaminophen 650 mg 06/21/24 19:42 Acetaminophen 325 Mg Tablet PO Q4HR PRN Pain 1 to 4, or Fever Alprazolam 0.75 mg 06/21/24 19:42 Alprazolam 0.25 Mg Tablet PO DAILY PRN Anxiety Heparin Sodium (Porcine) 5,000 unit 06/21/24 21:00 06/21/24 22:05 Heparin 5,000 Unit/Ml Vial SUBQ 5,000 unit BID GARRY Administration Hydromorphone HCl 0.5 mg 06/21/24 19:42 Hydromorphone 0.5 Mg/0.5 Ml Syringe IVP Q2H PRN Pain 8 to 10 Vancomycin HCl 1.25 gm/ Sodium 250 mls @ 167 mls/hr 06/22/24 07:00 06/22/24 06:45 Chloride IV 167 mls/hr Q12H GARRY Administration Cefepime HCl 1 gm/ Sodium 100 mls @ 200 mls/hr 06/22/24 03:00 06/22/24 03:48 Chloride IV Infused Q8H GARRY Infusion Non-Formulary Medication 75 mg 06/21/24 19:42 Vibegron [Gemtesa] PO QDAY GARRY Ondansetron HCl 4 mg 06/21/24 19:42 Ondansetron 4 Mg/2 Ml Vial IVP Q6HR PRN Nausea / Vomiting Potassium Chloride 10 meq 06/22/24 08:00 Potassium Chloride 10 Meq Capsule PO DAILYWM GARRY Pravastatin Sodium 10 mg 06/22/24 09:00 Pravastatin 10 Mg Tablet PO DAILY GARRY Sodium Chloride 10 ml 06/21/24 19:42 Sodium Chloride Flush 0.9% 10 Ml Syringe IVP PRN PRN NEEDED PER PROVIDER ORDERS Sodium Chloride 10 ml 06/22/24 01:00 06/22/24 03:15 Sodium Chloride Flush 0.9% 10 Ml Syringe IVP 10 ml 0100,0900,1700 GARRY Administration Triamterene/Hydrochlorothiazide 1 cap 06/22/24 09:00 Triamt/Hctz 37.5 Mg/25 Mg Capsule PO DAILY [facility] Vancomycin HCl 1 each 06/21/24 19:42 Vancomycin: Pharmacy To Dose MC .ONCE PRN PER PHARMACY Objective Vital Signs/Intake & Output Reviewed Vital Signs: Yes Vital Signs: Vital Signs x48h Temp Pulse Resp BP Pulse Ox 06/22/24 00:10 36.7 C 90 18 103/57 L 96 Intake & Output: Intake & Output 06/19/24 06/20/24 06/21/24 06/22/24 23:59 23:59 23:59 23:59 Intake Total 300 / 300 340 / 340 Output Total 1000 / 1000 450 / 450 Balance -700 / -700 -110 / -110 Weight (kg) 85 kg Objective General Appearance: positive No acute distress (lying in bed. PVR 210cc last night. Lab work stable or slightly worsening with leukocytosis, vitals stable though had fever 38.4 overnight. Mildly hypotensive and tachycardic.) Lab Results 06/22/24 05:40 06/22/24 05:40 Other Labs: Lab Results x24hrs 06/22/24 06/21/24 06/21/24 Range/Units 05:40 18:05 17:55 WBC 14.1 H 12.0 H (4.8-10.8) x10^3/uL RBC 4.19 L 4.71 (4.70-6.10) 10^6/uL Hgb 13.0 L 14.6 (14.0-18.0) g/dL Hct 38.5 L 42.8 (42.0-52.0) % MCV 91.9 90.9 (80.0-94.0) fL MCH 31.0 31.0 (27.0-31.0) pg MCHC 33.8 34.1 (32.0-36.0) g/dL RDW 12.7 12.6 (12.0-15.0) % Plt Count 212 258 (130-450) 10^3/uL MPV 9.1 8.9 (7.4-11.4) fL Neut # (Auto) 10.9 H 10.2 H (1.5-6.6) 10^3/uL Lymph # (Auto) 1.6 0.8 L (1.5-3.5) 10^3/uL [place] # (Auto) 1.5 H 0.8 (0.0-1.0) 10^3/uL Eos # (Auto) 0.1 0.1 (0.0-0.7) 10^3/uL Baso # (Auto) 0.1 0.0 (0.0-0.1) 10^3/uL Absolute Nucleated RBC 0.00 0.00 x10^3/uL Nucleated RBC % 0.0 0.0 /100WBC Sodium 137 135 (135-145) mmol/L Potassium 3.3 L 3.7 (3.5-4.5) mmol/L Chloride 105 96 L (101-111) mmol/L Carbon Dioxide 27 29 (21-32) mmol/L Anion Gap 5.0 L 10.0 (6-13) BUN 12 10 (6-20) mg/dL Creatinine 0.7 0.8 (0.6-1.3) mg/dL Estimated GFR (MDRD) 108 93 (>89) Glucose 123 H 139 H (74-104) mg/dL Lactic Acid 1.9 (0.5-2.2) mmol/L Calcium 8.2 L 9.1 (8.5-10.3) mg/dL Total Bilirubin 1.0 (0.2-1.0) mg/dL AST 20 (10-42) IU/L ALT 17 (10-60) IU/L Alkaline Phosphatase 75 (42-121) IU/L Total Protein 6.9 (6.4-8.9) g/dL Albumin 4.0 (3.2-5.5) g/dL Globulin 2.9 (2.1-4.2) g/dL Albumin/Globulin Ratio 1.4 (1.0-2.2) Urine Color YELLOW Urine Clarity CLOUDY (CLEAR) Urine pH 6.5 (5.0-7.5) PH Ur Specific [place] 1.015 (1.002-1.030) Urine Protein NEGATIVE (NEGATIVE) mg/dL Urine Glucose (UA) NEGATIVE (NEGATIVE) mg/dL Urine Ketones TRACE (NEGATIVE) mg/dL Urine Occult Blood LARGE H (NEGATIVE) Urine Nitrite NEGATIVE (NEGATIVE) Urine Bilirubin NEGATIVE (NEGATIVE) Urine Urobilinogen 2 H (NORMAL) E.U./dL Ur Leukocyte Esterase MODERATE H (NEGATIVE) Urine RBC 6-10 H (0-5) /HPF Urine WBC 6-10 H (0-3) /HPF Ur Squamous Epith Cells NONE SEEN (<= Few) Urine Bacteria Moderate H (None Seen) /HPF Urine Culture Comments INDICATED ABX Reporting Has patient been on IV antibiotics over the past 48 hours?: Yes Sepsis Event Note (H) Evaluation Current Stage of Sepsis: Sepsis Possible source of Sepsis: positive Genitourinary Sepsis Criteria Sepsis Criteria: Recorded Heart Rate greater than 90 bpm and Recorded Respiratory Rate greater than 20 Assessment/Plan Problem List (1) Sepsis: Impression: 83-year-old with long history of septic episodes of likely urinary source of unclear significant etiology. Currently with again sepsis of similar likely source. Urine culture and blood culture pending. On antibiotics. No improvement overnight -no acute intervention -Continue conservative management with antibiotics, fluid resuscitation -PVR today is 210 cc which is slightly elevated from his baseline of 130 cc. I would recommend checking again. -If no improvement by tomorrow morning recommend a CT scan of abdomen pelvis with IV contrast and oral contrast to assess for abdominal process. -If significant decompensation then strongly recommend Caldwell catheter to decompress bladder -Call with questions (2) Acute UTI: (3) Hyperlipidemia: (4) Hypertension: (5) Diabetes:
[2024-06-22] MEDS: POTASSIUM CHLORIDE 10 MEQ CAPSULE PO SCH (08:48)
[2024-06-22] MEDS: TRIAMT/HCTZ 37.5 MG/25 MG CAPSULE PO SCH (08:48)
[2024-06-22] MEDS: PRAVASTATIN 10 MG TABLET PO SCH (08:48)
--- NOTE | 2024-06-22 09:21 | PROVIDER PROGRESS NOTE ---
Subjective Subjective Subjective: Today, patient has been feeling much better. He is alert and oriented x 4. He denies any fevers or chills overnight. He has no dysuria. He does have some urinary frequency. He also has some feelings of incomplete emptying. Current Medications Current Medications Current Medications: Current Medications Generic Name Dose Route Start Last Admin Trade Name Freq PRN Reason Stop Dose Admin Acetaminophen 650 mg 06/21/24 19:42 Acetaminophen 325 Mg Tablet PO Q4HR PRN Pain 1 to 4, or Fever Alprazolam 0.75 mg 06/21/24 19:42 Alprazolam 0.25 Mg Tablet PO DAILY PRN Anxiety Heparin Sodium (Porcine) 5,000 unit 06/21/24 21:00 06/22/24 08:48 Heparin 5,000 Unit/Ml Vial SUBQ 5,000 unit BID GARRY Administration Hydromorphone HCl 0.5 mg 06/21/24 19:42 Hydromorphone 0.5 Mg/0.5 Ml Syringe IVP Q2H PRN Pain 8 to 10 Vancomycin HCl 1.25 gm/ Sodium 250 mls @ 167 mls/hr 06/22/24 07:00 06/22/24 08:15 Chloride IV Infused Q12H GARRY Infusion Cefepime HCl 1 gm/ Sodium 100 mls @ 200 mls/hr 06/22/24 03:00 06/22/24 03:48 Chloride IV Infused Q8H GARRY Infusion Non-Formulary Medication 75 mg 06/22/24 09:00 Vibegron [Gemtesa] PO DAILY GARRY Ondansetron HCl 4 mg 06/21/24 19:42 Ondansetron 4 Mg/2 Ml Vial IVP Q6HR PRN Nausea / Vomiting Potassium Chloride 10 meq 06/22/24 08:00 06/22/24 08:48 Potassium Chloride 10 Meq Capsule PO 10 meq DAILYWM GARRY Administration Pravastatin Sodium 10 mg 06/22/24 09:00 06/22/24 08:48 Pravastatin 10 Mg Tablet PO 10 mg DAILY GARRY Administration Sodium Chloride 10 ml 06/21/24 19:42 Sodium Chloride Flush 0.9% 10 Ml Syringe IVP PRN PRN NEEDED PER PROVIDER ORDERS Sodium Chloride 10 ml 06/22/24 01:00 06/22/24 08:48 Sodium Chloride Flush 0.9% 10 Ml Syringe IVP 10 ml 0100,0900,1700 GARRY Administration Triamterene/Hydrochlorothiazide 1 cap 06/22/24 09:00 06/22/24 08:48 Triamt/Hctz 37.5 Mg/25 Mg Capsule PO 1 cap DAILY GARRY Administration Objective Vital Signs/Intake & Output Reviewed Vital Signs: Yes Vital Signs: Vital Signs x48h Temp Pulse Resp BP Pulse Ox 06/22/24 08:45 97.9 F 76 20 107/57 L 96 Intake & Output: Intake & Output 06/19/24 06/20/24 06/21/24 06/22/24 23:59 23:59 23:59 23:59 Intake Total 300 / 300 1005 / 1005 Output Total 1000 / 1000 450 / 450 Balance -700 / -700 555 / 555 Weight (kg) 85 kg Objective General Appearance: positive No acute distress and Alert; negative Anxious Eyes Bilateral: positive Normal inspection, PERRL and EOMI ENT: positive ENT inspection nml, Pharynx nml and No signs of dehydration Neck: positive Nml inspection, Thyroid nml and No JVD Respiratory: positive Chest non-tender and No respiratory distress; negative Wheezes, Rales or Rhonchi Cardiovascular: positive Regular rate & rhythm, No murmur and No gallop; negative Bradycardia, Systolic murmur or Diastolic murmur Abdomen: positive Non-tender and No distention; negative Tenderness, Guarding, Hepatomegaly or Splenomegaly Back: positive Nml inspection; negative CVA tenderness (R) or CVA tenderness (L) Skin: positive Color nml, No rash, Warm and Dry Extremities: positive Non-tender, Full ROM, Nml appearance and No pedal edema Neurologic/Psychiatric: positive Oriented x3, Motor nml and Mood/affect nml; negative Weakness Lab Results 06/22/24 05:40 06/22/24 05:40 Other Labs: Lab Results x24hrs 06/22/24 06/21/24 06/21/24 Range/Units 05:40 18:05 17:55 WBC 14.1 H 12.0 H (4.8-10.8) x10^3/uL RBC 4.19 L 4.71 (4.70-6.10) 10^6/uL Hgb 13.0 L 14.6 (14.0-18.0) g/dL Hct 38.5 L 42.8 (42.0-52.0) % MCV 91.9 90.9 (80.0-94.0) fL MCH 31.0 31.0 (27.0-31.0) pg MCHC 33.8 34.1 (32.0-36.0) g/dL RDW 12.7 12.6 (12.0-15.0) % Plt Count 212 258 (130-450) 10^3/uL MPV 9.1 8.9 (7.4-11.4) fL Neut # (Auto) 10.9 H 10.2 H (1.5-6.6) 10^3/uL Lymph # (Auto) 1.6 0.8 L (1.5-3.5) 10^3/uL [place] # (Auto) 1.5 H 0.8 (0.0-1.0) 10^3/uL Eos # (Auto) 0.1 0.1 (0.0-0.7) 10^3/uL Baso # (Auto) 0.1 0.0 (0.0-0.1) 10^3/uL Absolute Nucleated RBC 0.00 0.00 x10^3/uL Nucleated RBC % 0.0 0.0 /100WBC Sodium 137 135 (135-145) mmol/L Potassium 3.3 L 3.7 (3.5-4.5) mmol/L Chloride 105 96 L (101-111) mmol/L Carbon Dioxide 27 29 (21-32) mmol/L Anion Gap 5.0 L 10.0 (6-13) BUN 12 10 (6-20) mg/dL Creatinine 0.7 0.8 (0.6-1.3) mg/dL Estimated GFR (MDRD) 108 93 (>89) Glucose 123 H 139 H (74-104) mg/dL Lactic Acid 1.9 (0.5-2.2) mmol/L Calcium 8.2 L 9.1 (8.5-10.3) mg/dL Total Bilirubin 1.0 (0.2-1.0) mg/dL AST 20 (10-42) IU/L ALT 17 (10-60) IU/L Alkaline Phosphatase 75 (42-121) IU/L Total Protein 6.9 (6.4-8.9) g/dL Albumin 4.0 (3.2-5.5) g/dL Globulin 2.9 (2.1-4.2) g/dL Albumin/Globulin Ratio 1.4 (1.0-2.2) Urine Color YELLOW Urine Clarity CLOUDY (CLEAR) Urine pH 6.5 (5.0-7.5) PH Ur Specific [place] 1.015 (1.002-1.030) Urine Protein NEGATIVE (NEGATIVE) mg/dL Urine Glucose (UA) NEGATIVE (NEGATIVE) mg/dL Urine Ketones TRACE (NEGATIVE) mg/dL Urine Occult Blood LARGE H (NEGATIVE) Urine Nitrite NEGATIVE (NEGATIVE) Urine Bilirubin NEGATIVE (NEGATIVE) Urine Urobilinogen 2 H (NORMAL) E.U./dL Ur Leukocyte Esterase MODERATE H (NEGATIVE) Urine RBC 6-10 H (0-5) /HPF Urine WBC 6-10 H (0-3) /HPF Ur Squamous Epith Cells NONE SEEN (<= Few) Urine Bacteria Moderate H (None Seen) /HPF Urine Culture Comments INDICATED Diagnostic Imaging Diagnostic Imaging Results: positive Final report reviewed Sepsis Event Note (H) Evaluation Current Stage of Sepsis: Sepsis Possible source of Sepsis: positive Genitourinary Sepsis Criteria Sepsis Criteria: Recorded Heart Rate greater than 90 bpm and Recorded Respiratory Rate greater than 20 Assessment/Plan Problem List (1) Sepsis: Impression: Patient with tachycardia, febrile to 101.1, as well as leukocytosis of 12 yesterday, uptrending to 14 today. Likely urinary source. Continue broad-spectrum antibiotics with vancomycin and cefepime. Preliminary urine culture shows gram-negative rods, await final speciation. Can likely DC vancomycin tomorrow. Qualifiers: Sepsis acute organ dysfunction status: unspecified Sepsis type: sepsis due to unspecified organism Qualified Code(s): A41.9 - Sepsis, unspecified organism (2) Acute UTI: Impression: Patient with recurrent urinary tract infections, hematuria with unclear significant etiology. Has had multiple cystoscopies in the past, which have been negative. Urology is following: Recommend bladder scans frequently. If no improvement by tomorrow morning, recommend CT scan of abdomen/pelvis with IV contrast and oral contrast to assess for abdominal process. (3) Hyperlipidemia: Impression: Continue statin. Qualifiers: Hyperlipidemia type: unspecified Qualified Code(s): E78.5 - Hyperlipidemia, unspecified (4) Hypertension: Impression: Continue triameterenehydrochlorothiazide. Patient's blood pressure is soft, may hold in A.M. if continues. Qualifiers: Hypertension type: unspecified Qualified Code(s): I10 - Essential (primary) hypertension (5) Diabetes: Impression: On metformin at home. Currently holding low-dose insulin sliding scale as patient's sugars have been well-controlled here. Will restart if they start to become higher. Qualifiers: Diabetes mellitus complication status: without complication Diabetes mellitus intermediate insulin use: without intermediate use Diabetes mellitus type: t ype 2 Qualified Code(s): E11.9 - Type 2 diabetes mellitus without complications
--- NOTE | 2024-06-22 10:16 | PHARMACY PROGRESS NOTE ---
Best Possible Medication History Admit Date and Time: 06/21/24 1847 Home Medications Medication Instructions Recorded Confirmed Type aspirin 81 mg chewable tablet 81 mg PO DAILY 06/18/17 06/22/24 History alprazolam 0.5 mg tablet (Xanax) 0.75 mg PO DAILY PRN Anxiety 11/28/19 06/22/24 History metformin 500 mg tablet 500 mg PO DAILY 10/10/23 06/22/24 History pravastatin 10 mg tablet 10 mg PO DAILY 10/10/23 06/22/24 History Potassium Chloride 10 meq PO DAILY 10/11/23 06/22/24 History triamterene 37.5 1 cap PO DAILY 10/11/23 06/22/24 History mg-hydrochlorothiazide 25 mg capsule fluticasone fur. 200 mcg-umeclid 1 inh inhalation ONCE 06/22/24 06/22/24 History 62.5 mcg-vilant 25 mcg inhalat.powder (Trelegy Ellipta) omeprazole 20 mg capsule,delayed 20 mg PO DAILY 06/22/24 06/22/24 History release tamsulosin 0.4 mg capsule 0.4 mg PO Q24H 06/22/24 06/22/24 History Processed by: Pharmacy Medications reviewed in ED?: No Medication History completed: Yes Patient Interview: Completed Secondary Source(s): Written medication list and Insurance records [facility] Statement: Pt interview, with [employer] Rx records available. Pt provided home med list from his phone. As the person ultimately responsible for medication therapy, providers are able to order a medication from an existing home medication list in [facility] via the "Reconcile Routine" prior to Confirmation of that medication by residential support specialist. Such practice is discouraged except when the physician, in their clinical judgment, deems that a medical need exists for a medication without regard to previous use.
[2024-06-22] MEDS: POTASSIUM CHLORIDE 20 MEQ TABLET PO ONE (10:58)
[2024-06-22] MEDS: VIBEGRON 75 MG PO SCH (10:58)
[2024-06-22 15:33] LABS: ESTIMATED AVERAGE GLUCOSE 111 mg/dL (70-100); HEMOGLOBIN A1c% 5.5 % (4.27-6.07)
[2024-06-22] MEDS: ALPRAZolam 0.25 MG TABLET PO SCH ×2 (20:42→21:35)
[2024-06-23 06:44] LABS: BASOPHILS % (AUTO) 0.3 %; EOSINOPHILS # (AUTO) 0.3 10^3/uL (0.0-0.7); HGB - HEMOGLOBIN 13.1 g/dL (14.0-18.0); LYMPHOCYTES % (AUTO) 22.2 %; MEAN CORPUSCULAR HGB CONC 33.6 g/dL (32.0-36.0); MEAN CORPUSCULAR VOLUME 92.2 fL (80.0-94.0); MEAN PLATELET VOLUME 8.8 fL (7.4-11.4); MONOCYTES % (AUTO) 10.7 %; NEUTROPHILS # (AUTO) 5.7 10^3/uL (1.5-6.6); NEUTROPHILS % (AUTO) 63.6 %; PLT - PLATELET COUNT 192 10^3/uL (130-450); RED BLOOD COUNT 4.23 10^6/uL (4.70-6.10); RED CELL DISTRIBUTION WIDTH 12.9 % (12.0-15.0)
[2024-06-23 07:01] LABS: CALCIUM 8.6 mg/dL (8.5-10.3); CREATININE 0.6 mg/dL (0.6-1.3); MAGNESIUM 1.7 mg/dL (1.7-2.3); POTASSIUM 3.4 mmol/L (3.5-4.5); VANCOMYCIN,TROUGH 14.2 ug/mL
--- NOTE | 2024-06-23 07:59 | PROVIDER PROGRESS NOTE ---
Progress Note Progress Note Progress Note: June 23, 2024 8:15 AM Was seen by urology yesterday. They are recommending a CAT scan today if he has not improved. But he has improved since admission. His sepsis criteria fever, tachycardia, hypotension have improved. He is growing out gram-negative rods out of his urine and he is being treated with cefepime and bank. Exam: Blood pressure continues to be low at 99/59, pulse 66, respirations 18, temperature 36.4, 98% saturated on room air He is an exceedingly pleasant tall white male who looks his stated age. 6 foot 1, 85 kg. No acute distress. Neck is supple Lungs are clear Regular rate and rhythm Abdomen is soft, slight tenderness over the suprapubic area but it is very mild. Mainly with my palpation. Normal bowel sounds, no masses. 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 No edema. Neurologically alert and oriented person, place, time. Mildly deaf. Stiff when he tries to sit up in bed and then stand because of his arthritis. Labs reviewed by me show a sodium 138, potassium slightly low at 3.4. He was low yesterday and supplemented. Chloride 104. BUN 9, creatinine 0.6. His fasting glucose today is 106 off his metformin. Calcium 8.6, magnesium 1.7. White cell count was elevated on admission and yesterday. Yesterday was 14.1, and is 9.0 today. Hemoglobin 13. No left shift. Blood cultures are without growth after 1 day Gram-negative jose carlos is growing in his urine but no ID or sensitivity yet. His last positive culture was in November 2022 where he grew out Klebsiella. Assessment/plan 1. Acute UTI causing sepsis. Sepsis criteria have now resolved. We are in the process of identifying the bug and adjusting antibiotics if necessary. Currently on cefepime and bank. We anticipate vent being stopped today if we can get identification on the bacteria. He is responding to therapy. White cell count is come down. No more fever or rigors. However continues to be hypotensive. 2. History of prostatitis. Urology feels this this may be the problem that is causing his UTI. Has had multiple procedures in the past. CT was recommended if he was not responding to therapy. Not think it was can order a CT today. But the patient says that he is so exhausted from all of this. He has had several recurrent UTIs. He goes to the ER. Ends up in the hospital. He really wants to know what is going on and he does not remember a previous CT. He asked if I could please do a CT. I have ordered it for just pelvis. No contrast 3. Hypotension. So far no fluid boluses needed. He is making urine. Perfusing skin and organs with good labs for BUN and creatinine/LFTs. 4. Type 2 diabetes mellitus, well-controlled, not on long-term insulin. He is on metformin at home. That is not being given to him while here. I agree with. I want to avoid any lactic acidosis confusion. Currently glucose is controlled without any intervention. No new orders.
[2024-06-23 08:26] VITALS: BP 113/54; TEMP 97.9; O2SAT 100
[2024-06-23] MEDS: polyethylene glycoL 3350 17 GM PACKET PO SCH (09:00)
[2024-06-23] MEDS ORDERED: iohexoL-300 100 ML VIAL ONE (09:26)
[2024-06-23] MEDS: SENNA 8.6 MG TABLET PO SCH (10:28)
[2024-06-23] MEDS: iohexoL-300 100 ML VIAL IVP ONE (10:37)
--- NOTE | 2024-06-23 10:52 | CT Report ---
PROCEDURE: CT Pelvis W INDICATIONS: hematuria recurrent w uti CONTRAST: omni 300, 100 TECHNIQUE: After the administration of intravenous contrast, a CT scan of the pelvis was performed. Images were recorded and evaluated at appropriate window settings. Reformats: axial MIP of the chest, coronal an d sagittal. For radiation dose reduction, the following was used: automated exposure control, adjustm ent of mA and/or kV according to patient size. COMPARISON: 12/02/2022 from [facility] FINDINGS: Image quality: Excellent. Bowel and peritoneum: No bowel distension. No pathologic free fluid. Vessels: No infrarenal aortic aneurysm. Reproductive organs: There is a homogeneously enhancing lesion of the right peripheral zone of the pr ostate which is suspicious for prostate cancer. It measures 3.4 x 2.2 x 4.2 cm. Reference coronal aria ge 78 of series 6 and axial image 69 of series 2. There is associated dilatation and enhancement rela mya to the arterial vascular supply of the part of the prostate. Bladder: There is thickening of the wall of the bladder diffusely. This is chronic but perhaps slight ly increased from previously. There is some inflammatory change around the bladder. Consider cystitis Pelvic lymph nodes: No pelvic adenopathy by size criteria. Bones: No aggressive osseous abnormality. Other: No significant ventral or inguinal hernia. IMPRESSION: 1. 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 2. Suspect possible acute bacterial cystitis. Recommend correlation with urinalysis. Comment: Recommend referral to urology. Also, consider prostate protocol MRI on a nonemergent basis f or further workup. Above discussed with Dr. Ellis at the time of dictation on 06/23/2024 at 1043 hours. Apparently, the patient is now an inpatient. Dr. Bowles will notify the hospitalist of the finding in the prostate. Reviewed by: Ignacio Jones MD on 06/23/2024 10:50 AM PDT Approved by: Ignacio Jones MD on 06/23/2024 10:50 AM PDT Station ID: [id number]
--- NOTE | 2024-06-23 13:32 | Discharge Summary ---
Discharge Summary Admit Date: 06/21/24 Discharge Date: 06/23/24 Discharging Provider: Sosa Eduardo MD Primary Care Provider: Terrance Jack [facility] ([facility] Code Status: Attempt Resuscitation DIAGNOSES Discharge Diagnoses with Status of Each Condition: 1. Sepsis due to UTI 2. Klebsiella pneumoniae UTI 3. Prostatitis and cystitis 4. Prostatic neoplasm, uncertain behavior 5. Hyperlipidemia 6. Hypertension 7. Diffuse, chronic, bony pain 8. Type 2 diabetes mellitus, controlled, with peripheral neuropathy, without long-term use of insulin HPI History of Present Illness: 83-year-old gentleman who presented to the emergency department with fever and chills and confusion this afternoon. He has a history of recurrent urinary tract infections. He has been in close contact with his urologist, Dr. Kingston, Dr. Kingston called in a prescription for Bactrim this afternoon. He was able to take 1 dose at home but then started to feel worse and came to the emergency department. He has a past medical history of type 2 diabetes on metformin, BPH, hypertension, hypercholesterolemia. He lives at home with his and is independent in most of his functions. CONSULTS | PROCEDURES Consultations: Urology Procedures: Blood cultures are negative at 24 hours Urine culture positive for Klebsiella pneumonia CT of pelvis has a 4 x 2 x 3 cm prostatic mass that looks like tumor (in the right lobe) HOSPITAL COURSE Hospital Course: The patient was placed on empiric IV antibiotic therapy for UTI. It was initially cefepime and vancomycin. Once cultures came back and Klebsiella was identified vancomycin was discontinued and cefepime continued. During his stay his glucose was controlled. He does complain of numb fingers and numb right toes. He has a recurrent history of UTIs. Has been hospitalized at [facility] twice for this. He is also been seen by 3 urologist and has had 2 cystoscopies. Other than chronic inflammatory changes of the bladder no tumors or been found. His PSA, in the past, was 5. With this hospitalization I did a CT of the pelvis and he has a 4 x 2 x 3 cm right lobe prostatic mass that is presumed to be neoplasm. I discussed this with his and he at the same time. Neck steps are to get a prostatic biopsy, a nuclear medicine bone scan, and opinion with oncology of how to proceed with treatment if the biopsy is positive. The patient is actually relieved that we actually found something that is causing the hematuria, urgency, and "chunks" of tissue that show up in his urine. He was seen by urology on admission but he did not require acute surgical intervention. He is sepsis criteria resolved. He would eat more food but he does not like the food here. He is ambulating without assistance. He said he would feel so much better at home than here. Oxygen is normal, blood pressure is normal. Urine culture showed that the Klebsiella pneumonia was sensitive to quinolones. As such I am sending him home in stable condition. I would like him to follow- up with both urology and primary care provider. I have started him on Levaquin 500 mg a day and because the CT shows evidence of prostatitis, he needs to stay on it for the next 21 days. Blood pressure is 113/54, pulse 67, respirations 18, temp 36.6, O2 sat 100% on room air. He is an alert and oriented elderly gentleman who moves stiffly and with discomfort because of back pain, neck pain and knee pain. But he is able to do this on his own. No respiratory distress with clear lungs. Regular rate and rhythm. The abdomen is soft and nontender with normal bowel sounds. The extremities have no edema. 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 This document was made in part using voice recognition software. While efforts are made to proofread this document, sound alike and grammatical errors may occur. ALLERGIES Allergies Allergy/AdvReac Type Severity Reaction Status Date / Time No Known Drug Allergies Allergy Verified 06/21/24 17:32 MEDICATIONS Ambulatory Orders Medication Instructions Recorded Confirmed aspirin 81 mg chewable tablet 81 mg PO DAILY 06/18/17 06/22/24 alprazolam 0.5 mg tablet (Xanax) 0.75 mg PO DAILY PRN Anxiety 11/28/19 06/22/24 metformin 500 mg tablet 500 mg PO DAILY 10/10/23 06/22/24 pravastatin 10 mg tablet 10 mg PO DAILY 10/10/23 06/22/24 Potassium Chloride 10 meq PO DAILY 10/11/23 06/22/24 triamterene 37.5 1 cap PO DAILY 10/11/23 06/22/24 mg-hydrochlorothiazide 25 mg capsule fluticasone fur. 200 mcg-umeclid 1 inh inhalation ONCE 06/22/24 06/22/24 62.5 mcg-vilant 25 mcg inhalat.powder (Trelegy Ellipta) omeprazole 20 mg capsule,delayed 20 mg PO DAILY 06/22/24 06/22/24 release tamsulosin 0.4 mg capsule 0.4 mg PO Q24H 06/22/24 06/22/24 levofloxacin 500 mg tablet 500 mg PO Q24H #20 tabs 06/23/24 LABS 06/23/24 06:40 06/23/24 06:40 SEPSIS Current Stage of Sepsis: Sepsis Possible source of Sepsis: Genitourinary Sepsis Criteria: Recorded Heart Rate greater than 90 bpm and Recorded Respiratory Rate greater than 20 Discharge Plan Discharge Patient Disposition: Home, Self Care Condition: Good Medically Cleared Date:: 06/23/24 Prescriptions: New levofloxacin 500 mg tablet 500 mg PO Q24H Qty: 20 0RF Continued aspirin 81 MG tablet,chewable 81 mg PO DAILY alprazolam [Xanax] 0.5 MG tablet 0.75 mg PO DAILY PRN (Reason: Anxiety) metformin 500 MG tablet 500 mg PO DAILY pravastatin 10 MG tablet 10 mg PO DAILY triamterene-hydrochlorothiazid 1 CAP capsule 1 cap PO DAILY Potassium Chloride 10 MEQ Capsule.Er 10 meq PO DAILY Patient Comments: take 1 tablet by mouth once daily tamsulosin 0.4 mg capsule 0.4 mg PO Q24H omeprazole 20 mg capsule,delayed release(DR/EC) 20 mg PO DAILY Patient Comments: take 1 capsule by mouth once daily at bedtime Trelegy Ellipta 200-62.5-25 mcg blister with device 1 inh INHALATION ONCE Patient Comments: inhale 1 puff by mouth once daily RINSE MOUTH WITH WATER, GARGLE, AND SPIT AFTER EACH USE. Activity Restrictions: Activity as Tolerated Diet: Regular Health Concerns: [place], you have a recurrent history of bladder infections. Over the years, you have been in the hospital a few times ([facility]) because of this. You have seen 3 urologists. You have had cystoscopies to look inside your bladder. Other than an enlarged prostate, not much has been found. You came back to our emergency room again with urgency, frequency, and bloody urine. Sometimes you could see "chunks" of tissue in your urine. You also had fever, chills, and shaking that was very severe. After the emergency room evaluation, we felt that you had sepsis from a urinary tract infection because your urine had blood, white cells, and bacteria in it. Your white cell count was 14,000. Normal is 10. After giving you antibiotics, and getting a culture of your urine, you are much better. Your white cell count is now 9000. You do not have a fever. No shakes. You are tired but feel okay. Your appetite is good but you really don't like our food here. Your main discomfort is the diffuse bony pain you have in your neck and spine and knees. The urine has grown out a bacteria called Klebsiella pneumonia. I think you are safe to go home with antibiotics. You will need to take Levaquin 500 mg tablet every day for the next 21 days. Before you left, I wanted to look at your prostate because of the bloody urine. I did a CT of the pelvis and the CT of the pelvis has a 4 x 3 x 2 cm right prostatic mass that we think is prostate cancer. You will need to see the urologist in follow-up for that because you will need a biopsy. Either the urologist or your primary care provider needs to order a bone scan. From there, once they have figured out how extensive it is, they will start treatment. I have already let the urologist know. And you and I discussed this with Mary Ann in the room, so your will help you follow thru on making arrangements with Dr. Jack and Dr. Kingston. He also let me know that the tips of your fingers and right foot are getting numb. You do have diabetes and I think this is early peripheral neuropathy. But your sugar is well-controlled with your metformin. I do not think there is much we can do about the peripheral neuropathy and just let Dr. Jack know that you have it. Please see Dr. Jack in follow-up in the next 1 to 2 weeks. Print Language: Greenlandic Patient Instructions: Levofloxacin tablets, Prostatitis Bacterial
== END 2024-06-23 13:54 | disposition home or self-care (01) | DRG 872 ==
LOC: ED 17:22 → MS2 18:47
PROVIDERS: ADMIT Physician Assistant Medical; ATTEND Physician Assistant Medical
DX: R39.14 Feeling of incomplete bladder emptying; Z87.891 Personal history of nicotine dependence; A41.9 Sepsis, unspecified organism; M89.8X9 Other specified disorders of bone, unspecified site; Z79.82 Long term (current) use of aspirin; D40.0 Neoplasm of uncertain behavior of prostate; N40.1 Benign prostatic hyperplasia with lower urinary tract symptoms; E78.5 Hyperlipidemia, unspecified; Z79.84 Long term (current) use of oral hypoglycemic drugs; A41.59 Other Gram-negative sepsis; G89.29 Other chronic pain; R35.0 Frequency of micturition; E11.42 Type 2 diabetes mellitus with diabetic polyneuropathy; R94.31 Abnormal electrocardiogram [ECG] [EKG]; I10 Essential (primary) hypertension; N39.0 Urinary tract infection, site not specified